=== PATIENT | female | born 1955 | race Caucasian/White ===

== ENCOUNTER 2021-06-21 15:42 | Outpatient (REF) | payer OTHER, SELFPAY ==
[2021-06-21 15:55] LABS: Hematocrit 27.6 % (37.0-47.0); Hemoglobin 8.4 g/dl (12.0-16.0); Mean Corpuscular HGB Conc 30.4 g/dl (31.0-35.0); Mean Corpuscular Hemoglobin 26.2 pg (27.0-33.0); Mean Platelet Volume 10.1 fL (9.4-12.3); NRBC Pct Auto 0.7 /100WBC (0.0-0.2); Platelet Count 159 X10*3/uL (160-400); Red Blood Count 3.21 X10*6/uL (4.20-5.50); Red Cell Distribution Width 20.2 % (11.0-16.0); White Blood Count 7.4 X10*3/uL (4.8-10.8)
[2021-06-21 16:24] LABS: Alanine Aminotransferase 8 U/L (0-31); Albumin Level 2.9 g/dL (3.5-5.0); Alkaline Phosphatase 227 U/L (39-117); Anion Gap 13 (12-20); Aspartate Amino Transferase 9 U/L (5-31); Band Neutrophils Percent 18 % (3-5); Basophils Abs Manual 0.1 X10*3/uL (0.0-0.2); Basophils Percent Manual 1 % (0-2); Bilirubin Total 0.3 mg/dL (0.0-1.0); Blood Urea Nitrogen 25 mg/dL (9-16); Calcium 8.4 mg/dL (8.4-10.2); Carbon Dioxide 7 mmol/L (22-29); Chloride 116 mmol/L (96-108); Eosinophils Absolute Manual 0.1 X10*3/uL (0.0-0.4); Eosinophils Percent Manual 1 % (0-4); Estimated Glomerular Filt Rate 29; Glucose Random 173 mg/dL (60-115); Lymphocytes Absolute Manual 1.8 X10*3/uL (1.2-4.9); Lymphocytes Percent Manual 24 % (20-40); Macrocytosis 1+ (5-14) /OIF; Magnesium 1.8 mg/dL (1.6-2.6); Metamyelocytes Absolute 0.1 X10*3/uL; Metamyelocytes Percent 2 %; Microcytosis 1+ (5-14) /OIF; Monocytes Absolute Manual 1.6 X10*3/uL (0.1-1.2); Monocytes Percent Manual 22 % (2-11); Myelocytes Absolute 0.1 X10*/uL; Myelocytes Percent 2 %; Neutrophils Absolute Manual 3.6 X10*3/uL (2.0-8.3); Neutrophils Percent Manual 30 % (45-73); Platelet Estimate SLIGHTLY DECREASED (NORMAL); Platelet Morphology Comment NOTED; Potassium 3.5 mmol/L (3.3-5.1); RBC Morphology NOTED; Sodium 132 mmol/L (135-145); Total Protein 5.7 g/dL (6.5-8.0)
[2021-06-21 16:25] LABS: Acanthocytes 2+ (3-5) /OIF; Burr Cells 2+ (3-5) /OIF; Large Platelet PRESENT; Ovalocytes 1+ (5-14) /OIF; Polychromasia 2+ (3-5) /OIF
== END 2021-06-21 15:43 | disposition home or self-care (01) ==
LOC: HO.LNP 15:42
PROVIDERS: Visit Provider Family Medicine
DX: E87.6 Hypokalemia (principal)
CPT/HCPCS: 80053; 83735; 85007; 85027

== ENCOUNTER 2021-06-21 18:06 | Inpatient (IN) | payer OTHER, SELFPAY ==
[2021-06-21] VITALS (9 sets, daily range): BP systolic 93–156; BP diastolic 61–97; PULSE 84–93; RESP 12–18; TEMP 36.5–37; O2SAT 98–100; BMI 26.2
--- NOTE | ~2021-06-21 | XR_ITS ---
EXAMINATION: XR CHEST CLINICAL INFORMATION: Tachycardia and tachypnea COMPARISON: None TECHNIQUE: Frontal view of the chest was obtained. FINDINGS: Heart size normal. There is an area of patchy infiltration in the right suprahilar region. Some left basilar atelectasis is present. A right chest wall port is seen with its tip at the SVC/RA junction. There is no evidence of CHF. No definite effusions are seen. Degenerative changes present in the spine and left shoulder. XR/XR chest 1V IMPRESSION: Right upper lobe patchy infiltrate consistent with pneumonia.
--- NOTE | ~2021-06-21 | CT_ITS ---
EXAMINATION: CT ABDOMEN AND PELVIS WITHOUT CONTRAST CLINICAL INFORMATION: Polymicrobial catheter anemia, pancreatic CA. COMPARISON: None TECHNIQUE: Multidetector volumetric imaging was performed from the superior aspect of the liver through the pubic symphysis. Sagittal and coronal reformatted images were obtained on the technologist's workstation. This CT examination was performed using dose optimization techniques as appropriate, variously including the following: *Automated exposure control *Adjustment of mA and/or kV according to patient size (this includes techniques or standardized protocols for targeted exams where dose is matched to indication/reason for exam; i.e. extremities or head) *Use of iterative reconstruction technique DLP: 468 mGy-cm FINDINGS: LUNG BASES: There is a patchy opacity seen left lung base suggestive of infiltrate. The heart size is normal. LIVER, GALLBLADDER, AND BILIARY TREE: The liver is normal in size, shape, and attenuation. There is a gas-filled lesion in the right hepatic lobe segment 6 measuring 3.3 x 2.8 x 2.8 cm. No additional lesions visualized on this noncontrast exam. There is a dilated common bile duct measuring 2.0 cm. The gallbladder is distended without any radiopaque calculi or wall thickening. PANCREAS: There is prominent pancreatic head with punctate calcification and irregular contour. The pancreatic body and the tail is not visualized likely surgically removed. The peripancreatic fat borders are hazy. There are small peripancreatic small lymph nodes especially along the posterior head of pancreas. The largest lymph node measures 1.7 x 1.0 cm and coronal image 53/4. SPLEEN: Unremarkable. ADRENAL GLANDS: The left adrenal gland is slightly plump measuring 1 cm. The right adrenal gland is normal. KIDNEYS AND URETERS: The kidneys are normal in size, shape, and attenuation. No hydronephrosis, hydroureter, or calculi seen. There is mild peripancreatic fat stranding. BLADDER: Unremarkable. GASTROINTESTINAL TRACT: There is scattered stool and gas seen throughout the colon without distention. The small bowel loops are normal caliber. Appendix is normal caliber. ABDOMINAL WALL: No significant hernia is appreciated. LYMPH NODES: There are small retroperitoneal lymph nodes. VASCULAR: Unremarkable. PELVIC VISCERA: The uterus is anteverted and appears unremarkable. There is no adnexal mass or free fluid seen. OSSEOUS STRUCTURES: There is vacuum disc phenomena and loss of disc height L1-L2 disc level. This mild ventral spondylosis lumbar spine. No lytic or sclerotic process seen. CT/CT abdomen pelvis wo con IMPRESSION: Slightly prominent pancreatic head with calcification and peripancreatic fat stranding and small peripancreatic lymph nodes. Lymph nodes also visualized in the retroperitoneum measuring 1.4 cm in maximum dimension. The CBD is abnormality dilated extending to the pancreatic head. Lack of IV contrast to 6 evaluation. The gallbladder is distended but no radiopaque calculi seen. There is gas-filled right hepatic lobe lesion question abscess or necrotic lesion. There are no previous exam available for comparison. This patient have elevated white count ?.
--- NOTE | 2021-06-21 18:08 | ECG_ITS ---
Test Reason : N/V Blood Pressure : / mmHG Vent. Rate : 088 BPM Atrial Rate : 088 BPM P-R Int : 144 ms QRS Dur : 080 ms QT Int : 360 ms P-R-T Axes : 068 -12 029 degrees QTc Int : 435 ms Sinus rhythm with occasional Premature ventricular complexes Nonspecific T wave abnormality Abnormal ECG No previous ECGs available Referred By: Frannie Banks Electronically Signed By:AXEL ROMERO MD
--- NOTE | 2021-06-21 18:19 | ED_ITS ---
HPI - General Adult General Chief complaint: Nausea/Vomiting/Diarrhea Stated complaint: ABN LAB PER SNF Time Seen by Provider: 06/21/21 18:07 Source: patient and EMS Mode of arrival: EMS Limitations: no limitations History of Present Illness HPI narrative: 66 yo female with history of pancreatic cancer, pancytopenia, protein-calorie malnutrition, DM2, chronic pain on chronic opiates who presents to the ED from [facility] with abnormal blood work. She reportedly got to [facility] 2 days ago, unclear from where. She is a poor historian. Her bicarb today was found to be seven. She states she is at rehab because she is weak and not eating. She reports ongoing watery diarrhea for several weeks. she denies all other physical complaints. She reports a very poor appetite and does not remember last time she ate. She has had 3 episodes of watery diarrhea today. She reports she is on blood thinners she does know why. MD complaint: Abnormal blood work, bicarbonate of 7 Onset (ago): unknown Severity: moderate Relieving factors: none Exacerbating factors: none Associated symptoms: weakness and other ( diarrhea) Treatments prior to arrival: none Related Data Allergies Allergy/AdvReac Type Severity Reaction Status Date / Time Unable to Assess Allergy Unverified 06/21/21 18:06 Review of Systems Review of Systems: Constitutional: No Fever, No Chills ENT/Mouth: No sore throat, No Rhinorrhea, No Swallowing Difficulty Cardiovascular: No Chest Pain, No SOB, No Orthopnea, No Edema Respiratory: No Cough, No Sputum, No Wheezing, No dyspnea Gastrointestinal: No Nausea, No Vomiting, + Diarrhea, No abdominal Pain, No Hematochezia, No Melena Genitourinary: No Dysuria, No Urinary Frequency, No Hematuria Musculoskeletal: No joint pain, No Myalgias Skin: No Skin Lesions, No rash Neuro: + Weakness, No Numbness, No Dizziness, No Headache Psych: No Anxiety/Panic, No Depression Heme/Lymph: No Bruising, No Lymphadenopathy Endocrine: No Polyuria, No Polydipsia PMFSH Past Medical History Medical History (Updated 06/21/21 @ 20:28 by GREG Mendoza) Diabetes HTN (hypertension) Pancreatic cancer metastasized to liver Social History Social History Advance Directives: No Advance Directives Information Provided: No Physical Exam Vital Signs: Vital Signs: Last Vital Signs Temp 98.3 F 06/21/21 19:19 Pulse 90 06/21/21 19:19 Resp 18 06/21/21 19:19 BP 97/76 06/21/21 19:19 Pulse Ox 98 06/21/21 19:19 Body Mass Index 26.2 Appearance: Alert, pale elderly female, appears older than stated age. Oriented X2. No acute distress. Eyes: Pupils equal, round and reactive to light. ENT: Pharynx normal. Neck: Normal inspection. Neck supple. CVS: Normal heart rate and rhythm. Pulses normal. Respiratory: No respiratory distress. Breath sounds normal. Abdomen: Softly distended and nontender. +BS x4 Skin: Skin warm and dry. Normal skin color. Normal skin turgor. No rashes. Extremities: No lower extremity edema. Neuro: Oriented X 2. No motor deficit. No sensory deficit. Course Course Course Narrative: 66-year-old female presenting with a bicarbonate of 7. Her face sheet from a [facility] reports a history of pancreatic cancer, protein calorie malnutrition, acidosis. She cannot hear she was recently hospitalized but appears it may be [facility]. Will attempt to get records. Repeat lab workup ordered now along with IVF. On arrival to the ER patient immediately requested to use the bathroom. She had a large amount of watery very dark brown stool. She states it has been going on for weeks. Reevaluation(s) Reevaluation #1: Received records from [facility] Zane her she was previously admitted and discharged on 2 days ago on June 19. She was admitted 06/18 - 06/20 for chronic diarrhea after receiving chemotherapy 06/09 for her metastatic pancreatic cancer. she also had several actually abnormalities and pancytopenia with an H&H of 8.7/27.9. She had an anion gap metabolic acidosis w ith significant electrolyte abnormalities that were treated with IV fluids and electrolyte repletion. She was discharged with a bicarbonate of 11. creatinine was normal at 1.0. Reevaluation #2: After her 2nd episode of diarrhea here she had drop in her BP to 90's/70's, mentating well but felt weak. Still working on getting IV access and labs. Nurse to access right chest wall port to start IVF. Patient will require admission. Reevaluation #3: Ph 7.09. Ordered IV bicarb push and dose of oral bicarbonate. Will also start Imodium given her diarrhea is not infectious. Case d/w Dr. Fernandez - awaiting repeat labs. IV bicarb gtt to be started. Will plan to repeat VBG to assess response prior to admission to hospitalist. Pt awake and alert. Hemodynamically stable. Does not require ICU level of care at this time. Signed out to night provider who will f/u repeat VBG and plan to admit. Medical Decision Making Lab Data Result diagrams: 06/21/21 20:00 06/21/21 20:00 Labs: Lab Results 06/21/21 06/21/21 06/21/21 Range/Units 18:45 18:45 18:45 WBC (4.8-10.8) X10*3/uL RBC (4.20-5.50) X10*6/uL Hgb (12.0-16.0) g/dl Hct (37.0-47.0) % MCV (80.0-98.0) fL MCH (27.0-33.0) pg MCHC (31.0-35.0) g/dl RDW (11.0-16.0) % Plt Count (160-400) X10*3/uL MPV (9.4-12.3) fL Immature Gran % (Auto) Neut % (Auto) Lymph % (Auto) [place] % (Auto) Eos % (Auto) Baso % (Auto) Lymph # (Auto) [place] # (Auto) Eos # (Auto) Baso # (Auto) Abs Immat Gran (auto) Absolute Neuts (auto) Absolute Nucleated RBC (0.0-0.012) X10*3/uL Nucleated RBC % (auto) (0.0-0.2) /100WBC Neutrophils % (Manual) (45-73) % Band Neutrophils % (3-5) % Lymphocytes % (Manual) (20-40) % Atypical Lymphs % (Man) (0-6) % Monocytes % (Manual) (2-11) % Eosinophils % (Manual) (0-4) % Metamyelocytes % % Myelocytes % % Abs Neuts (Manual) (2.0-8.3) X10*3/uL Lymphocytes # (Manual) (1.2-4.9) X10*3/uL Atyp Lymphs # (Manual) x10*3/uL Monocytes # (Manual) (0.1-1.2) X10*3/uL Eosinophils # (Manual) (0.0-0.4) X10*3/uL Metamyelocytes # X10*3/uL Myelocytes # X10*/uL Nucleated RBCs (0-0) /100WBC Smudge Cells Toxic Granulation Platelet Estimate (NORMAL) Large Platelets Plt Morphology Comment RBC Morphology Polychromasia /OIF Macrocytosis /OIF Ovalocytes /OIF [place] Cells /OIF Acanthocytes (Spur) /OIF Schistocytes /OIF VBG pH (7.32-7.43) VBG pCO2 mmHg VBG pO2 mmHg VBG HCO3 (22-26) mmol/L VBG O2 Saturation % VBG Base Excess mmol/L Sodium (135-145) mmol/L Potassium (3.3-5.1) mmol/L Chloride (96-108) mmol/L Carbon Dioxide (22-29) mmol/L Anion Gap (12-20) BUN (9-16) mg/dL Creatinine (0.5-1.4) mg/dL Estim Creat Clear Calc Estimated GFR Random Glucose (60-115) mg/dL Lactic Acid (0.5-2.0) mmol/L Calcium (8.4-10.2) mg/dL Magnesium (1.6-2.6) mg/dL Total Bilirubin (0.0-1.0) mg/dL Direct Bilirubin (0.0-0.5) mg/dL AST (5-31) U/L ALT (0-31) U/L Alkaline Phosphatase (39-117) U/L Total Protein (6.5-8.0) g/dL Albumin (3.5-5.0) g/dL Lipase (8-78) U/L Stool Occult Blood POSITIVE (NEGATIVE) Stool Leukocytes, Qual NEGATIVE (NEGATIVE) C. difficile Tox B Gene (Negative) COVID-19 (JOE) Negative (Negative) COVID-19 Clin Com See Note 06/21/21 06/21/21 06/21/21 Range/Units 18:45 20:00 20:00 WBC 10.4 (4.8-10.8) X10*3/uL RBC 3.26 L (4.20-5.50) X10*6/uL Hgb 8.6 L (12.0-16.0) g/dl Hct 27.6 L (37.0-47.0) % MCV 84.7 (80.0-98.0) fL MCH 26.4 L (27.0-33.0) pg MCHC 31.2 (31.0-35.0) g/dl RDW 20.0 H (11.0-16.0) % Plt Count 203 D (160-400) X10*3/uL MPV 10.3 (9.4-12.3) fL Immature Gran % (Auto) Cancelled Neut % (Auto) Cancelled Lymph % (Auto) Cancelled [place] % (Auto) Cancelled Eos % (Auto) Cancelled Baso % (Auto) Cancelled Lymph # (Auto) Cancelled [place] # (Auto) Cancelled Eos # (Auto) Cancelled Baso # (Auto) Cancelled Abs Immat Gran (auto) Cancelled Absolute Neuts (auto) Cancelled Absolute Nucleated RBC 0.100 H (0.0-0.012) X10*3/uL Nucleated RBC % (auto) 1.0 H (0.0-0.2) /100WBC Neutrophils % (Manual) 30 L (45-73) % Band Neutrophils % 24 H (3-5) % Lymphocytes % (Manual) 21 (20-40) % Atypical Lymphs % (Man) 2 (0-6) % Monocytes % (Manual) 19 H (2-11) % Eosinophils % (Manual) 1 (0-4) % Metamyelocytes % 2 % Myelocytes % 1 % Abs Neuts (Manual) 5.6 (2.0-8.3) X10*3/uL Lymphocytes # (Manual) 2.2 (1.2-4.9) X10*3/uL Atyp Lymphs # (Manual) 0.2 x10*3/uL Monocytes # (Manual) 2.0 H (0.1-1.2) X10*3/uL Eosinophils # (Manual) 0.1 (0.0-0.4) X10*3/uL Metamyelocytes # 0.2 X10*3/uL Myelocytes # 0.1 X10*/uL Nucleated RBCs 3 H (0-0) /100WBC Smudge Cells PRESENT Toxic Granulation PRESENT Platelet Estimate NORMAL (NORMAL) Large Platelets PRESENT Plt Morphology Comment NOTED RBC Morphology NOTED Polychromasia 2+ (3-5) /OIF Macrocytosis 1+ (5-14) /OIF Ovalocytes 1+ (5-14) /OIF [place] Cells 1+ (0-2) /OIF Acanthocytes (Spur) 3+ (>5) /OIF Schistocytes 1+ (0-2) /OIF VBG pH (7.32-7.43) VBG pCO2 mmHg VBG pO2 mmHg VBG HCO3 (22-26) mmol/L VBG O2 Saturation % VBG Base Excess mmol/L Sodium 132 L (135-145) mmol/L Potassium 3.4 (3.3-5.1) mmol/L Chloride 116 H (96-108) mmol/L Carbon Dioxide 6 L* (22-29) mmol/L Anion Gap 13 (12-20) BUN 28 H (9-16) mg/dL Creatinine 2.01 H (0.5-1.4) mg/dL Estim Creat Clear Calc 23.4 Estimated GFR 25 Random Glucose 215 H (60-115) mg/dL Lactic Acid (0.5-2.0) mmol/L Calcium 8.3 L (8.4-10.2) mg/dL Magnesium 1.8 (1.6-2.6) mg/dL Total Bilirubin 0.4 (0.0-1.0) mg/dL Direct Bilirubin 0.2 (0.0-0.5) mg/dL AST 8 (5-31) U/L ALT 9 (0-31) U/L Alkaline Phosphatase 241 H (39-117) U/L Total Protein 5.8 L (6.5-8.0) g/dL Albumin 2.9 L (3.5-5.0) g/dL Lipase (8-78) U/L Stool Occult Blood (NEGATIVE) Stool Leukocytes, Qual (NEGATIVE) C. difficile Tox B Gene NEGATIVE (Negative) COVID-19 (JOE) (Negative) COVID-19 Clin Com 06/21/21 06/21/21 06/21/21 Range/Units 20:00 20:00 20:04 WBC (4.8-10.8) X10*3/uL RBC (4.20-5.50) X10*6/uL Hgb (12.0-16.0) g/dl Hct (37.0-47.0) % MCV (80.0-98.0) fL MCH (27.0-33.0) pg MCHC (31.0-35.0) g/dl RDW (11.0-16.0) % Plt Count (160-400) X10*3/uL MPV (9.4-12.3) fL Immature Gran % (Auto) Neut % (Auto) Lymph % (Auto) [place] % (Auto) Eos % (Auto) Baso % (Auto) Lymph # (Auto) [place] # (Auto) Eos # (Auto) Baso # (Auto) Abs Immat Gran (auto) Absolute Neuts (auto) Absolute Nucleated RBC (0.0-0.012) X10*3/uL Nucleated RBC % (auto) (0.0-0.2) /100WBC Neutrophils % (Manual) (45-73) % Band Neutrophils % (3-5) % Lymphocytes % (Manual) (20-40) % Atypical Lymphs % (Man) (0-6) % Monocytes % (Manual) (2-11) % Eosinophils % (Manual) (0-4) % Metamyelocytes % % Myelocytes % % Abs Neuts (Manual) (2.0-8.3) X10*3/uL Lymphocytes # (Manual) (1.2-4.9) X10*3/uL Atyp Lymphs # (Manual) x10*3/uL Monocytes # (Manual) (0.1-1.2) X10*3/uL Eosinophils # (Manual) (0.0-0.4) X10*3/uL Metamyelocytes # X10*3/uL Myelocytes # X10*/uL Nucleated RBCs (0-0) /100WBC Smudge Cells Toxic Granulation Platelet Estimate (NORMAL) Large Platelets Plt Morphology Comment RBC Morphology Polychromasia /OIF Macrocytosis /OIF Ovalocytes /OIF [place] Cells /OIF Acanthocytes (Spur) /OIF Schistocytes /OIF VBG pH 7.09 L* (7.32-7.43) VBG pCO2 12 mmHg VBG pO2 65 mmHg VBG HCO3 4 L (22-26) mmol/L VBG O2 Saturation 86.0 % VBG Base Excess -23.3 mmol/L Sodium (135-145) mmol/L Potassium (3.3-5.1) mmol/L Chloride (96-108) mmol/L Carbon Dioxide (22-29) mmol/L Anion Gap (12-20) BUN (9-16) mg/dL Creatinine (0.5-1.4) mg/dL Estim Creat Clear Calc Estimated GFR Random Glucose (60-115) mg/dL Lactic Acid 1.5 (0.5-2.0) mmol/L Calcium (8.4-10.2) mg/dL Magnesium (1.6-2.6) mg/dL Total Bilirubin (0.0-1.0) mg/dL Direct Bilirubin (0.0-0.5) mg/dL AST (5-31) U/L ALT (0-31) U/L Alkaline Phosphatase (39-117) U/L Total Protein (6.5-8.0) g/dL Albumin (3.5-5.0) g/dL Lipase 20 (8-78) U/L Stool Occult Blood (NEGATIVE) Stool Leukocytes, Qual (NEGATIVE) C. difficile Tox B Gene (Negative) COVID-19 (JOE) (Negative) COVID-19 Clin Com ECG Data Attestation: I personally reviewed and interpreted this ECG as follows: Prior ECG tracings: not available for review Interpretation: Normal sinus rhythm with occasional PVCs, heart rate 88 beats per minute, normal GA interval, no ST segment elevations or depressions Critical Care Time Critical Care Time Critical Care Time: Yes Total Critical Care Time: 42 Attestation: I have personally provided critical care time exclusive of time spent on separately billable procedures. Time includes review of lab data, radiology results, discussion with consultants, and monitoring for potential decompensation. Intervention performed as documented. Discharge Plan Discharge Clinical Impression: Metabolic acidosis, Melena Diarrhea Qualifiers: Diarrhea type: unspecified type Qualified Code(s): R19.7 - Diarrhea, unspecified Patient Disposition: Admitted As Inpatient
[2021-06-21 18:59] LABS: OBS Int Ctl Valid YES; OBS1 POSITIVE (NEGATIVE)
[2021-06-21] MEDS: 0.9 % Sodium Chloride 1,000 ML 999 ML IVCONT (19:23)
[2021-06-21 19:25] LABS: Leukocytes Stool Qualitative NEGATIVE (NEGATIVE)
[2021-06-21 19:49] LABS: CDiff Gene PCR NEGATIVE (Negative)
[2021-06-21 19:58] LABS: COVID-19 Test Negative (Negative); IDNOW Serial# 08D9AD1C
[2021-06-21 20:08] LABS: Hematocrit 27.6 % (37.0-47.0); Hemoglobin 8.6 g/dl (12.0-16.0); Mean Corpuscular HGB Conc 31.2 g/dl (31.0-35.0); Mean Corpuscular Hemoglobin 26.4 pg (27.0-33.0); Mean Corpuscular Volume 84.7 fL (80.0-98.0); Mean Platelet Volume 10.3 fL (9.4-12.3); Platelet Count 203 X10*3/uL (160-400); Red Blood Count 3.26 X10*6/uL (4.20-5.50); White Blood Count 10.4 X10*3/uL (4.8-10.8)
[2021-06-21 20:12] LABS: VBG Base Excess -23.3 mmol/L; VBG HCO3 4 mmol/L (22-26); VBG pCO2 12 mmHg; VBG pH 7.09 (7.32-7.43); VBG pO2 65 mmHg
[2021-06-21 20:21] LABS: Lactic Acid 1.5 mmol/L (0.5-2.0)
[2021-06-21 20:26] LABS: Lipase 20 U/L (8-78)
[2021-06-21] MEDS: Sodium Bicarbonate 650 MG TABLET PO (20:33)
[2021-06-21 20:35] LABS: Atypical Lymph Absolute Manual 0.2 x10*3/uL; Atypical Lymphs Percent Manual 2 % (0-6); Band Neutrophils Percent 24 % (3-5); Eosinophils Absolute Manual 0.1 X10*3/uL (0.0-0.4); Eosinophils Percent Manual 1 % (0-4); Lymphocytes Absolute Manual 2.2 X10*3/uL (1.2-4.9); Lymphocytes Percent Manual 21 % (20-40); Metamyelocytes Absolute 0.2 X10*3/uL; Metamyelocytes Percent 2 %; Monocytes Percent Manual 19 % (2-11); Myelocytes Absolute 0.1 X10*/uL; Myelocytes Percent 1 %; Neutrophils Absolute Manual 5.6 X10*3/uL (2.0-8.3); Neutrophils Percent Manual 30 % (45-73); Nucleated Red Blood Cells 3 /100WBC (0-0)
[2021-06-21 20:36] LABS: Acanthocytes 3+ (>5) /OIF; Burr Cells 1+ (0-2) /OIF; Large Platelet PRESENT; Macrocytosis 1+ (5-14) /OIF; Ovalocytes 1+ (5-14) /OIF; Platelet Estimate NORMAL (NORMAL); Platelet Morphology Comment NOTED; Polychromasia 2+ (3-5) /OIF; RBC Morphology NOTED; Schistocytes 1+ (0-2) /OIF; Smudge Cells PRESENT; Toxic Granulation PRESENT
[2021-06-21 20:38] LABS: Venous Blood Gas Refer to POC result
[2021-06-21] MEDS: Sodium Bicarbonate 8.4% 50 MEQ/50 ML SYRINGE IVPUSH ×2 (20:40→21:29)
[2021-06-21 20:46] LABS: Alanine Aminotransferase 9 U/L (0-31); Albumin Level 2.9 g/dL (3.5-5.0); Alkaline Phosphatase 241 U/L (39-117); Anion Gap 13 (12-20); Aspartate Amino Transferase 8 U/L (5-31); Bilirubin Direct 0.2 mg/dL (0.0-0.5); Bilirubin Total 0.4 mg/dL (0.0-1.0); Blood Urea Nitrogen 28 mg/dL (9-16); Calcium 8.3 mg/dL (8.4-10.2); Carbon Dioxide 6 mmol/L (22-29); Chloride 116 mmol/L (96-108); Creatinine Clr Calc Pharmacy 23.4; Estimated Glomerular Filt Rate 25; Glucose Random 215 mg/dL (60-115); Magnesium 1.8 mg/dL (1.6-2.6); Potassium 3.4 mmol/L (3.3-5.1); Sodium 132 mmol/L (135-145); Total Protein 5.8 g/dL (6.5-8.0)
[2021-06-21] MEDS: Loperamide HCl 2 MG CAPSULE 4 MG PO (20:57)
[2021-06-21] MEDS: Sodium Bicarbonate 8.4% 150 MEQ in Dextrose 5 % 850 ML 100 MEQ IV (21:24)
--- NOTE | 2021-06-21 21:46 | PC.NURSE ---
Hospitalist () saw patient at the bedside, planning for admission. Pt is trembling, d/t feeling cold . Rectal temperature 97.7F. Hospitalist & ED MD () aware. Respiratory therapist currently at bedside obtaining ABGs. Awaiting results. Sodium Bicarbonate drip infusing as ordered. Delay in initiating medication due to delay in receiving medication from pharmacy. Providers aware of delay. 20g port access (right side of chest).
[2021-06-21 21:58] LABS: ABG Base Excess -15.7 mmol/L; ABG HCO3 7 mmol/L (22-26); ABG pCO2 13 mmHg (32-45); ABG pCO2 TC 12 mmHg (32-45); ABG pH 7.35 (7.35-7.45); ABG pH TC 7.35 (7.35-7.45); ABG pO2 117 mmHg (83-108); ABG pO2 TC 114 (83-108)
--- NOTE | 2021-06-21 22:52 | P.HPHOSP_ITS ---
History of Present Illness Date of Service: 06/21/21 Chief Complaint: abnormal labs 66-year-old female with past medical history of diabetes, hypertension, pancytopenia, protein calorie malnutrition, AFib, diabetes pancreatic cancer and chronic diarrheapresents to the hospital with abnormal labs. Patient was re cently discharged from [facility] and sent to correction, she had labs done at correction today and found to have low bicarb and sent to the ED. Patient is alert and oriented x3, she has no nausea or vomiting, no chest pain, no abdominal pain no urinary symptoms, she has diarrhea about 3-10 episodes a day and reports that lately she has had worsening diarrhea. Received records from [facility] [place] her she was previously admitted and discharged on? 2 days ago on June 19.? She was admitted 06/18 - 06/20 for chronic diarrhea after receiving chemotherapy 06/09 for her metastatic? pancrea tic cancer.? she also had several actually abnormalities and pancytopenia with an H&H of 8.7/27.9.? She had an anion gap metabolic acidosis with significant electrolyte abnormalities that were treated with IV fluids and electrolyte repletion.? She was discharged with a bicarbonate of 11.? creatinine was normal at 1.0. While in the ED patient had a large amount of watery very dark brown stool, On arrival to the ED patient hemodynamically stable with no significant abnormal vitals Labs are significant for WBC count of 7.1, hemoglobin of 8.6, dropped to 7.1, initial pH of 7.09 that normalized to 7.35 after an amp of bicarb, bicarb has improved from 6 to 13, BUN of 28, creatinine of 2.0 with no previous similar episode stool occult positive, COVID-19 negative Patient started on bicarb drip, received IV bicarb and will be admitted for further management Review of Systems Review of Systems: Yes all other systems are reviewed and are negative [facility] Medical History (Updated 06/22/21 @ 07:27 by Marcus Fernandez MD) Afib Diabetes HTN (hypertension) Pancreatic cancer metastasized to liver Pancytopenia Protein calorie malnutrition Pertinent family history: No family history of coronary disease Surgical History (Updated 06/22/21 @ 07:27 by Marcus Fernandez MD) No pertinent past surgical history Social History Advance Directives: No Advance Directives Information Provided: No Meds Allergies Allergy/AdvReac Type Severity Reaction Status Date / Time No Known Allergies Allergy Verified 06/21/21 23:13 Active Medications: Current Medications Sodium Bicarbonate 150 meq/ (Dextrose) 1,000 mls @ 100 mls/hr IV .Q10H JACOBO Last Admin: 06/21/21 21:24 Dose: 100 mls/hr Documented by: Home Medications Medication Instructions Recorded Confirmed Last Taken Type albuterol sulfate 90 mcg/actuation 1 - 2 puff INHALATION Q4-6H 06/21/21 06/21/21 Unknown History aerosol inhaler apixaban 5 mg tablet (Eliquis) 1 tab PO BID 06/21/21 06/21/21 Unknown History aspirin 81 mg tablet,delayed 1 tab PO DAILY 06/21/21 06/21/21 Unknown History release atorvastatin 10 mg tablet 10 mg PO Q6H 06/21/21 06/21/21 Unknown History cholecalciferol (vitamin D3) 25 1 cap PO QAM 06/21/21 06/21/21 Unknown History mcg (1,000 unit) capsule (Vitamin D3) cholestyramine-aspartame 4 gram 1 packet PO BID PRN 06/21/21 06/21/21 Unknown History oral powder for susp in a packet (Cholestyramine Light) cyclosporine 0.05 % eye drops in a 1 drp OPHTHALMIC (EYE) BEDTIME 06/21/21 06/21/21 Unknown History dropperette (Restasis) diphenoxylate-atropine 2.5 1 tab PO Q6H PRN 06/21/21 06/21/21 Unknown History mg-0.025 mg tablet ferrous sulfate 325 mg (65 mg 325 mg PO DAILY 06/21/21 06/21/21 Unknown History iron) tablet (FeroSul) hydromorphone 4 mg tablet 4 mg PO NEEDED PRN 06/21/21 06/21/21 Unknown History lidocaine-prilocaine 2.5 %-2.5 % 1 appl TOPICAL NEEDED PRN 06/21/21 06/21/21 Unknown History topical cream qcwdwj-ebeqowjb-qnypalq 1 cap PO TID 06/21/21 06/21/21 Unknown History 12,000-38,000-60,000 unit capsule,delayed rel (Creon) qionuo-owljhivv-wymwqsd 1 cap PO TID 06/21/21 06/21/21 Unknown History 24,000-76,000-120,000 unit capsule,delayed rel (Creon) qpnqsm-mggzwwgl-yhnemlg 1 cap PO TID 06/21/21 06/21/21 Unknown History 36,000-114,000-180,000 unit capsule,delay rel (Creon) losartan 100 mg tablet 1 tab PO DAILY 06/21/21 06/21/21 Unknown History magnesium L-lactate 84 mg 1 tab PO BID 06/21/21 06/21/21 Unknown History tablet,extended release metoprolol succinate 50 mg 1 tab PO BID 06/21/21 06/21/21 Unknown History tablet,extended release 24 hr mirtazapine 15 mg tablet 0.5 tab PO DAILY 06/21/21 06/21/21 Unknown History morphine 15 mg tablet,extended 1 tab PO TID 06/21/21 06/21/21 Unknown History release omeprazole 20 mg capsule,delayed 1 cap PO DAILY 06/21/21 06/21/21 Unknown History release ondansetron HCl 8 mg tablet 1 tab PO TID 06/21/21 06/21/21 Unknown History potassium chloride 10 mEq 1 tab PO BID 06/21/21 06/21/21 Unknown History capsule,extended release thiamine HCl (vitamin B1) 100 mg 1 tab PO DAILY 06/21/21 06/21/21 Unknown History tablet (Vitamin B-1) Physical Exam Vital Signs and Narrative: Vital Signs: Last Vital Signs Temp 97.7 F 06/21/21 22:36 Pulse 84 06/21/21 22:36 Resp 16 06/21/21 22:36 BP 127/78 06/21/21 22:36 Pulse Ox 100 06/21/21 22:36 Body Mass Index 26.2 Const: General: cooperative and no acute distress Orientation/consciousness: patient oriented x3 Eyes: General: appearance normal, both eyes and all related structures Pupils: Equal, round and reactive pupils present Chest: Other: A port in plaace on the right upper chest Resp: Effort & Inspection: normal respiratory effort Auscultation: clear to auscultation bilaterally Cardio: Rate: regular rate Rhythm: regular rhythm GI: Other: Abdomen is soft, nontender, no rebound or guarding Palpation (GI): Soft to palpation Auscultation: normal bowel sounds Skin: General skin exam: no rashes or lesions noted Neuro: General: patient oriented x3 Cranial nerves: Yes Equal, round and reactive pupils present Cognition (Neuro): normal cognition Extrem: General: Yes normal to inspection and Yes no pedal edema Results Labs CBC and Chem 7: 06/22/21 00:05 06/21/21 20:00 Labs: Laboratory Results - last 24 hr 06/21/21 06/21/21 06/21/21 18:45 18:45 18:45 MCV MCH MCHC RDW Plt Count MPV Immature Gran % (Auto) Neut % (Auto) Lymph % (Auto) [place] % (Auto) Eos % (Auto) Baso % (Auto) Lymph # (Auto) [place] # (Auto) Eos # (Auto) Baso # (Auto) Abs Immat Gran (auto) Absolute Neuts (auto) Absolute Nucleated RBC Nucleated RBC % (auto) Neutrophils % (Manual) Band Neutrophils % Lymphocytes % (Manual) Atypical Lymphs % (Man) Monocytes % (Manual) Eosinophils % (Manual) Metamyelocytes % Myelocytes % Abs Neuts (Manual) Lymphocytes # (Manual) Atyp Lymphs # (Manual) Monocytes # (Manual) Eosinophils # (Manual) Metamyelocytes # Myelocytes # Nucleated RBCs Smudge Cells Toxic Granulation Platelet Estimate Large Platelets Plt Morphology Comment RBC Morphology Polychromasia Macrocytosis Ovalocytes [place] Cells Acanthocytes (Spur) Schistocytes O2 Saturation ABG pH at Pt Temp ABG pH (Temp Correct) ABG pCO2 at Pt Temp ABG pCO2 (Temp Corrct ABG pO2 at Pt Temp ABG pO2 (Temp Correct ABG HCO3 ABG Base Excess (Actual) VBG pH VBG pCO2 VBG pO2 VBG HCO3 VBG O2 Saturation VBG Base Excess Anion Gap Estim Creat Clear Calc Estimated GFR Random Glucose Lactic Acid Calcium Magnesium Total Bilirubin Direct Bilirubin AST ALT Alkaline Phosphatase Total Protein Albumin Lipase Stool Occult Blood POSITIVE Stool Leukocytes, Qual NEGATIVE C. difficile Tox B Gene COVID-19 (JOE) Negative COVID-19 Clin Com See Note 06/21/21 06/21/21 06/21/21 18:45 20:00 20:00 MCV 84.7 MCH 26.4 L MCHC 31.2 RDW 20.0 H Plt Count 203 D MPV 10.3 Immature Gran % (Auto) Cancelled Neut % (Auto) Cancelled Lymph % (Auto) Cancelled [place] % (Auto) Cancelled Eos % (Auto) Cancelled Baso % (Auto) Cancelled Lymph # (Auto) Cancelled [place] # (Auto) Cancelled Eos # (Auto) Cancelled Baso # (Auto) Cancelled Abs Immat Gran (auto) Cancelled Absolute Neuts (auto) Cancelled Absolute Nucleated RBC 0.100 H Nucleated RBC % (auto) 1.0 H Neutrophils % (Manual) 30 L Band Neutrophils % 24 H Lymphocytes % (Manual) 21 Atypical Lymphs % (Man) 2 Monocytes % (Manual) 19 H Eosinophils % (Manual) 1 Metamyelocytes % 2 Myelocytes % 1 Abs Neuts (Manual) 5.6 Lymphocytes # (Manual) 2.2 Atyp Lymphs # (Manual) 0.2 Monocytes # (Manual) 2.0 H Eosinophils # (Manual) 0.1 Metamyelocytes # 0.2 Myelocytes # 0.1 Nucleated RBCs 3 H Smudge Cells PRESENT Toxic Granulation PRESENT Platelet Estimate NORMAL Large Platelets PRESENT Plt Morphology Comment NOTED RBC Morphology NOTED Polychromasia 2+ (3-5) Macrocytosis 1+ (5-14) Ovalocytes 1+ (5-14) [place] Cells 1+ (0-2) Acanthocytes (Spur) 3+ (>5) Schistocytes 1+ (0-2) O2 Saturation ABG pH at Pt Temp ABG pH (Temp Correct) ABG pCO2 at Pt Temp ABG pCO2 (Temp Corrct ABG pO2 at Pt Temp ABG pO2 (Temp Correct ABG HCO3 ABG Base Excess (Actual) VBG pH VBG pCO2 VBG pO2 VBG HCO3 VBG O2 Saturation VBG Base Excess Anion Gap 13 Estim Creat Clear Calc 23.4 Estimated GFR 25 Random Glucose 215 H Lactic Acid Calcium 8.3 L Magnesium 1.8 Total Bilirubin 0.4 Direct Bilirubin 0.2 AST 8 ALT 9 Alkaline Phosphatase 241 H Total Protein 5.8 L Albumin 2.9 L Lipase Stool Occult Blood Stool Leukocytes, Qual C. difficile Tox B Gene NEGATIVE COVID-19 (JOE) COVID-19 Clin Com 06/21/21 06/21/21 06/21/21 20:00 20:00 20:04 MCV MCH MCHC RDW Plt Count MPV Immature Gran % (Auto) Neut % (Auto) Lymph % (Auto) [place] % (Auto) Eos % (Auto) Baso % (Auto) Lymph # (Auto) [place] # (Auto) Eos # (Auto) Baso # (Auto) Abs Immat Gran (auto) Absolute Neuts (auto) Absolute Nucleated RBC Nucleated RBC % (auto) Neutrophils % (Manual) Band Neutrophils % Lymphocytes % (Manual) Atypical Lymphs % (Man) Monocytes % (Manual) Eosinophils % (Manual) Metamyelocytes % Myelocytes % Abs Neuts (Manual) Lymphocytes # (Manual) Atyp Lymphs # (Manual) Monocytes # (Manual) Eosinophils # (Manual) Metamyelocytes # Myelocytes # Nucleated RBCs Smudge Cells Toxic Granulation Platelet Estimate Large Platelets Plt Morphology Comment RBC Morphology Polychromasia Macrocytosis Ovalocytes [place] Cells Acanthocytes (Spur) Schistocytes O2 Saturation ABG pH at Pt Temp ABG pH (Temp Correct) ABG pCO2 at Pt Temp ABG pCO2 (Temp Corrct ABG pO2 at Pt Temp ABG pO2 (Temp Correct ABG HCO3 ABG Base Excess (Actual) VBG pH 7.09 L* VBG pCO2 12 VBG pO2 65 VBG HCO3 4 L VBG O2 Saturation 86.0 VBG Base Excess -23.3 Anion Gap Estim Creat Clear Calc Estimated GFR Random Glucose Lactic Acid 1.5 Calcium Magnesium Total Bilirubin Direct Bilirubin AST ALT Alkaline Phosphatase Total Protein Albumin Lipase 20 Stool Occult Blood Stool Leukocytes, Qual C. difficile Tox B Gene COVID-19 (JOE) COVID-19 Clin Com 06/21/21 21:52 MCV MCH MCHC RDW Plt Count MPV Immature Gran % (Auto) Neut % (Auto) Lymph % (Auto) [place] % (Auto) Eos % (Auto) Baso % (Auto) Lymph # (Auto) [place] # (Auto) Eos # (Auto) Baso # (Auto) Abs Immat Gran (auto) Absolute Neuts (auto) Absolute Nucleated RBC Nucleated RBC % (auto) Neutrophils % (Manual) Band Neutrophils % Lymphocytes % (Manual) Atypical Lymphs % (Man) Monocytes % (Manual) Eosinophils % (Manual) Metamyelocytes % Myelocytes % Abs Neuts (Manual) Lymphocytes # (Manual) Atyp Lymphs # (Manual) Monocytes # (Manual) Eosinophils # (Manual) Metamyelocytes # Myelocytes # Nucleated RBCs Smudge Cells Toxic Granulation Platelet Estimate Large Platelets Plt Morphology Comment RBC Morphology Polychromasia Macrocytosis Ovalocytes [place] Cells Acanthocytes (Spur) Schistocytes O2 Saturation 98.0 ABG pH at Pt Temp 7.35 ABG pH (Temp Correct) 7.35 ABG pCO2 at Pt Temp 13 L* ABG pCO2 (Temp Corrct 12 L* ABG pO2 at Pt Temp 117 H ABG pO2 (Temp Correct 114 H ABG HCO3 7 L ABG Base Excess (Actual) -15.7 VBG pH VBG pCO2 VBG pO2 VBG HCO3 VBG O2 Saturation VBG Base Excess Anion Gap Estim Creat Clear Calc Estimated GFR Random Glucose Lactic Acid Calcium Magnesium Total Bilirubin Direct Bilirubin AST ALT Alkaline Phosphatase Total Protein Albumin Lipase Stool Occult Blood Stool Leukocytes, Qual C. difficile Tox B Gene COVID-19 (JOE) COVID-19 Clin Com Assessment and Plan (1) Metabolic acidosis: Status: Acute (2) Diarrhea: Qualifiers: Diarrhea type: unspecified type Qualified Code(s): R19.7 - Diarrhea, unspecified Status: Acute (3) Melena: Status: Acute 66-year-old female who presents to the hospital with abnormal labs found to be metabolic acidosis and half melena # metabolic acidosis - hemodynamically stable, alert oriented - it appears to be secondary to chronic diarrhea - patient has no lactic acidosis no evidence of electrolyte abnormality - started on bicarb drip, given amp of bicarb - will follow BMP # melena - patient on Eliquis for AFib - had black stool in the ED - will hold Eliquis - start PPI - follow H&H with threshold transfusion with hemoglobin less than 7 - GI consult # chronic diarrhea - most likely secondary to her pancreatic cancer - C diff negative - monitor DVT prophylaxis: SCDs Quality Stroke Does the patient have a stroke diagnosis?: No VTE Prior VTE?: No VTE Risk Level:: Medical - moderate - high VTE Device Contraindication: N/A - Device Ordered VTE Drug Contraindication: Treatment Not Indicated
[2021-06-21 22:56] LABS: ABG Refer to POC result
[2021-06-21] MEDS: 0.9 % Sodium Chloride Flush 3 ML SYRINGE IVFLUSH (23:52)
[2021-06-21] MEDS: 0.9 % Sodium Chloride 500 ML 999 ML IV (23:52)
[2021-06-22] VITALS (16 sets, daily range): BP systolic 98–143; BP diastolic 54–76; PULSE 77–120; RESP 12–22; TEMP 36.1–36.9; O2SAT 94–100; BMI 28.5
[2021-06-22 00:11] LABS: Hematocrit 22.4 % (37.0-47.0); Hemoglobin 7.1 g/dl (12.0-16.0)
--- NOTE | 2021-06-22 00:20 | PC.NURSE ---
At 23:45 on 06/21/21, BP noted to have decreased. Pt has been pale since arrival to ED, but appears more pale compared to earlier assessment. Pt is responsive/alert/oriented, but appears more sleepy/lethargic. notified, instructed to administer 500ml IV NS 0.9% bolus and to repeat Hematocrit/Hemoglobin levels to compare. Pt has had 2 dark liquid bowel movements since the start of this RN's shift (7pm). With repositioning and some fluid administration, BP improving. All other vitals stable, will continue to monitor.
[2021-06-22 07:04] LABS: Red Cell Distribution Width 19.7 % (11.0-16.0)
[2021-06-22 07:06] LABS: Mean Corpuscular HGB Conc 32.1 g/dl (31.0-35.0); Mean Corpuscular Hemoglobin 25.7 pg (27.0-33.0); Mean Corpuscular Volume 80.1 fL (80.0-98.0); Red Blood Count 2.41 X10*6/uL (4.20-5.50)
[2021-06-22 07:11] LABS: NRBC Pct Auto 1.1 /100WBC (0.0-0.2); WBC ABN SCTR FOR CBC 1
[2021-06-22 07:12] LABS: Hemoglobin 6.2 g/dl (12.0-16.0); PLT ABN DIST 1; White Blood Count 7.1 X10*3/uL (4.8-10.8)
[2021-06-22 07:13] LABS: Hematocrit 19.3 % (37.0-47.0)
[2021-06-22 07:21] LABS: Anion Gap 11 (12-20); Blood Urea Nitrogen 27 mg/dL (9-16); Calcium 7.1 mg/dL (8.4-10.2); Carbon Dioxide 13 mmol/L (22-29); Chloride 115 mmol/L (96-108); Creatinine Clr Calc Pharmacy 32.2; Estimated Glomerular Filt Rate 36; Glucose Random 163 mg/dL (60-115); Potassium 2.3 mmol/L (3.3-5.1); Sodium 137 mmol/L (135-145)
[2021-06-22 07:27] LABS: Atypical Lymph Absolute Manual 0.1 x10*3/uL; Atypical Lymphs Percent Manual 1 % (0-6); Band Neutrophils Percent 20 % (3-5); Lymphocytes Absolute Manual 0.9 X10*3/uL (1.2-4.9); Lymphocytes Percent Manual 12 % (20-40); Metamyelocytes Absolute 0.1 X10*3/uL; Metamyelocytes Percent 1 %; Monocytes Absolute Manual 0.5 X10*3/uL (0.1-1.2); Monocytes Percent Manual 7 % (2-11); Myelocytes Absolute 0.1 X10*/uL; Myelocytes Percent 1 %; Neutrophils Absolute Manual 5.5 X10*3/uL (2.0-8.3); Neutrophils Percent Manual 58 % (45-73); Nucleated Red Blood Cells 2 /100WBC (0-0)
[2021-06-22 07:29] LABS: Ovalocytes 1+ (5-14) /OIF; RBC Morphology NOTED
[2021-06-22 07:30] LABS: Burr Cells 3+ (>5) /OIF; Hypochromasia 2+ (15-30) /OIF; Polychromasia 1+ (0-2) /OIF; Schistocytes 1+ (0-2) /OIF
[2021-06-22 07:31] LABS: Platelet Estimate DECREASED (NORMAL); Platelet Morphology Comment NORMAL
[2021-06-22] MEDS: Sodium Bicarbonate 8.4% 150 MEQ in Dextrose 5 % 850 ML 100 MEQ IV ×2 (07:31→16:16)
[2021-06-22 07:32] LABS: Dohle Bodies PRESENT; Toxic Granulation PRESENT
[2021-06-22] MEDS: Pantoprazole Sodium 40 MG/10 ML VIAL IVPUSH ×2 (07:32→17:05)
[2021-06-22] MEDS: Potassium Chloride/H20 10 MEQ/100 ML PIGGYBACK 100 MEQ IV ×8 (07:37→19:06)
[2021-06-22 07:39] LABS: Mean Platelet Volume 10.8 fL (9.4-12.3); Platelet Count 127 X10*3/uL (160-400)
[2021-06-22] MEDS: Potassium Chloride Packet 20 MEQ PACKET 40 MEQ PO ×3 (07:45→15:57)
[2021-06-22 07:48] LABS: Magnesium 1.5 mg/dL (1.6-2.6)
[2021-06-22] MEDS: Atorvastatin Calcium 40 MG TABLET PO (08:45)
[2021-06-22] MEDS: Thiamine HCL 100 MG TABLET PO (08:45)
[2021-06-22] MEDS: Metoprolol Succinate ER 50 MG TAB.ER.24H PO ×2 (08:45→20:52)
[2021-06-22] MEDS: Cholecalciferol (Vitamin D3) 25 MCG TABLET PO (08:45)
[2021-06-22] MEDS: Ferrous Sulfate 324 MG TABLET.DR PO (08:45)
[2021-06-22] MEDS: 0.9 % Sodium Chloride Flush 3 ML SYRINGE IVFLUSH ×2 (08:53→20:53)
--- NOTE | 2021-06-22 11:35 | PHA.MEDREC ---
Pharmacy Consult ? Medication Reconciliation Pharmacy has completed the medication reconciliation. Meds reviewed from claim history, records from [facility] [place] [facility] [place], as well as speaking with Dr. Person. Pt noted to have an increase in Creon up to 3 capsules of 36,000 po TID. It was noted that the atorvastatin was 40 mg daily NOT 10 mg Q6H.
--- NOTE | 2021-06-22 12:00 | PM.GICN ---
History of Present Illness Data of Consult Service Date: 06/22/21 Requesting physician: Marcus Fernandez Primary Care Provider: Chris Murphy MD HPI Reason for consult: Diarrhea, GI bleed, metastatic pancreatic cancer 66 YF with DM, hypertension, pancytopenia, protein calorie malnutrition, AFib, metstatic pancreatic cancer and chronic diarrhea seen at [facility] on 06/22/21 with abnormal labs.? Hx obtained from the patient and review of medical records from [facility] GI and Oncology clinic. Patient was diagnosed with metastatic pancreatic cancer in November 2020 and is followed at [facility] by Dr. Edwards (GI) and Nicole Ching NP (Oncology). January, She was admitted to [facility] with partial gastric outlet obstruction from duodenal distortion from pancreatic malignancy and a duodenal stent placement was unsuccessful. Patient was transferred to [facility] and underwent an EUS guided gastrojejunostomy with placement of a 15 mm x 15 mm lumen apposing metal stent. Patient is receiving chemotherapy with FOLFIRINOX (5FU + Cisplatinum) with reportedly good evidence of response on CT scan. Pt has had chronic diarrhea for the past several months (prior to diagnosis of pancreatic cancer and treated with loperamide, Lomotil and pancreatic enzymes. Dose of pancreatic enzymes was increased with improvement in diarrhea. Diarrhea was felt to be multifactorial - pancreatic insufficiency, chemotherapy related and possible SIBO Patient was evaluated by colonoscopy which did not show colitis. Patient was recently hospitalized at [facility] from 06/18 to 06/20/21 for chronic diarrhea after receiving chemotherapy 06/09 for her metastatic? pancreatic cancer.? 06/17/[address] scan showed no significant change in the appearance of pancreatic head mass and liver metastasis. No evidence of disease progression. Pneumatosis intestinalis involving the ascending and proximal transverse colon. This was also present on to most recent prior exam, currently is similar to slightly greater in extent and then on 04/16/2021 and 930 at 20:21. Given presence of multiple exam this is likely a benign finding, with bowel ischemia thought less likely. She had pancytopenia with an H&H of 8.7/27.9.? She had an anion gap metabolic acidosis with significant electrolyte abnormalities that were treated with IV fluids and electrolyte repletion and discharged to the long term with a bicarbonate of 11.? creatinine was normal at 1.0. She had labs done at long term and found to have low bicarb and sent to [facility].? Patient denied nausea or vomiting, chest pain, abdominal pain or urinary symptoms. She complains of worsening diarrhea with 3-10 episodes a day. On arrival to the ED patient hemodynamically stable with no significant abnormal vitals. While in the ED patient had a large amount of watery very dark brown stool. Labs are significant for WBC count of 7.1, hemoglobin of 8.6, dropped to 7.1, initial pH of 7.09 that normalized to 7.35 after an amp of bicarb, bicarb has improved from 6 to 13,? BUN of 28, creatinine of 2.0 with no previous similar episode stool occult positive, COVID-19 negative Patient started on bicarb drip, received IV bicarb and was admitted for further management. Pt is a little confused and keeps changing her story. She reports continued abdominal pain and bloating. Appetite has been poor and takes 1 meal a day. She has 2-3 watery BMs a day and her BMs have been dark and tarry recently. Pt has been taking MS Contin at bedtime and Dilaudid 2 tablets - 1-2 times a day for pain control. Pt is single, has no children and lives along. 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 Patient is planning to moved to [place] in July 2021 to live with friends and continue chemotherapy there. She denies smoking or EtOH abuse. Family history is positive for colon cancer in her mom and maternal grand mother, dad had lung cancer. Review of Systems Constitutional: Constitutional: Reports fatigue, Denies fever(s), Denies headache(s) and Reports weight loss Eyes: Eyes: Denies eye discharge and Denies irritation ENT: Reports Normal hearing present, Denies dysphagia, Denies dizziness and Denies headache(s) Cardiovascular: Cardiovascular: Denies chest pain, Denies leg edema and Denies dyspnea on exertion Respiratory: Respiratory: Denies cough, Denies dyspnea on exertion and Denies wheezing Gastrointestinal: Gastrointestinal: Reports abdominal pain, Denies change in bowel habits, Denies dysphagia, Denies heartburn and Reports diarrhea Genitourinary: Genitourinary: Denies difficulty voiding and Denies dysuria Musculoskeletal: Musculoskeletal: Denies back pain and Denies arthralgias Integumentary/Breasts: Skin/Breast: Denies pruritus, Denies rash and Denies jaundice Neurologic: Reports Normal hearing present, Denies Abnormal speech present, Reports confusion, Denies dizziness, Denies headache(s) and Denies seizure-like activity Psychiatric: Psychiatric: Denies anxiety, Reports confusion, Denies depression and Denies panic attacks Endocrine: Endocrine: Denies cold intolerance, Reports fatigue, Denies flushing and Denies heat intolerance Hematologic/Lymphatic: Hematologic/Lymphatic: Denies easy bleeding and Denies easy bruising Allergic/Immunologic: Allergic/Immunologic: Denies wheezing PMFSH Past Medical History Medical History Afib Bacteremia Diabetes HTN (hypertension) Pancreatic cancer metastasized to liver Pancytopenia Protein calorie malnutrition Surgical History Surgical History No pertinent past surgical history Social History Social History Household Members: None Housing: Assisted Patient Tobacco Use Status: Never used Tobacco service: No Current occupational status: disabled [employer] Allergies Allergy/AdvReac Type Severity Reaction Status Date / Time No Known Allergies Allergy Verified 06/21/21 23:13 Active Medications: Current Medications Acetaminophen (Acetaminophen 325 Mg Tablet) 650 mg PO Q6H PRN PRN Reason: Pain, Mild (Pain Scale 1-3) Albuterol Sulfate (Albuterol Sulfate 90 Mcg 8 Gm Inhaler) 2 puff INHALE Q4H PRN PRN Reason: Shortness of Breath/Wheezing Lipase/Protease/Amylase (Lipase/Prot/Amylase 24/76/120k 1 Cap Capsule.Dr) 4 cap PO TID [facility] Last Admin: 06/22/21 08:58 Dose: Not Given Documented by: Atorvastatin Calcium (Atorvastatin Calcium 40 Mg Tablet) 40 mg PO DAILY [facility] Last Admin: 06/22/21 08:45 Dose: 40 mg Documented by: Cholestyramine Resin (Cholestyramine (With Sugar) 4 Gm Powd.Pack) 4 gm PO BID PRN PRN Reason: Loose Stool Dibucaine (Dibucaine 1 % Oint 28 Gm Tube) 1 appl TOPICAL Q6H PRN PRN Reason: Hemorrhoids Diphenoxylate HCl/Atropine (Diphenoxylate/Atrop 2.5/0.025 Tablet) 1 tab PO Q6H PRN PRN Reason: Loose Stool Ferrous Sulfate (Ferrous Sulfate 324 Mg Tablet.Dr) 324 mg PO DAILY [facility] Last Admin: 06/22/21 08:45 Dose: 324 mg Documented by: Hydromorphone HCl (Hydromorphone Hcl 1 Mg/Ml Syringe) 0.8 mg IVPUSH Q4H PRN; Protocol PRN Reason: severe pain Sodium Bicarbonate 150 meq/ (Dextrose) 1,000 mls @ 100 mls/hr IV .Q10H [facility] Last Admin: 06/22/21 07:31 Dose: 100 mls/hr Documented by: Metoprolol Succinate (Metoprolol Succinate Er 50 Mg Tab.Er.24h) 50 mg PO BID [facility]; Protocol Last Admin: 06/22/21 08:45 Dose: 50 mg Documented by: Mirtazapine (Mirtazapine 7.5 Mg Tablet) 7.5 mg PO BEDTIME JACOBO Morphine Sulfate (Morphine Sulfate Er 15 Mg Tablet.Er) 15 mg PO TID [facility] Last Admin: 06/22/21 08:46 Dose: Not Given Documented by: Ondansetron HCl (Ondansetron Hcl 4 Mg/2 Ml Vial) 4 mg IVPUSH Q8H PRN PRN Reason: Nausea and Vomiting Pantoprazole Sodium (Pantoprazole Sodium 40 Mg/10 Ml Vial) 40 mg IVPUSH BID@0630,1630 [facility] Last Admin: 06/22/21 07:32 Dose: 40 mg Documented by: Sodium Chloride (0.9 % Sodium Chloride Flush 3 Ml Syringe) 3 ml IVFLUSH QSHIFT [facility] Last Admin: 06/22/21 08:53 Dose: 3 ml Documented by: Thiamine HCl (Thiamine Hcl 100 Mg Tablet) 100 mg PO DAILY [facility] Last Admin: 06/22/21 08:45 Dose: 100 mg Documented by: Vitamin D (Cholecalciferol (Vitamin D3) 25 Mcg Tablet) 25 mcg PO DAILY [facility] Last Admin: 06/22/21 08:45 Dose: 25 mcg Documented by: Home Medications Medication Instructions Recorded Confirmed Last Taken Type albuterol sulfate 90 mcg/actuation 1 - 2 puff INHALATION Q4-6H 06/21/21 06/21/21 Unknown History aerosol inhaler apixaban 5 mg tablet (Eliquis) 1 tab PO BID 06/21/21 06/21/21 Unknown History cholecalciferol (vitamin D3) 25 1 cap PO QAM 06/21/21 06/21/21 Unknown History mcg (1,000 unit) capsule (Vitamin D3) cholestyramine-aspartame 4 gram 1 packet PO BID PRN 06/21/21 06/21/21 Unknown History oral powder for susp in a packet (Cholestyramine Light) cyclosporine 0.05 % eye drops in a 1 drp OPHTHALMIC (EYE) BEDTIME 06/21/21 06/21/21 Unknown History dropperette (Restasis) diphenoxylate-atropine 2.5 1 tab PO Q6H PRN 06/21/21 06/21/21 Unknown History mg-0.025 mg tablet ferrous sulfate 325 mg (65 mg 325 mg PO DAILY 06/21/21 06/21/21 Unknown History iron) tablet (FeroSul) hydromorphone 4 mg tablet 4 mg PO NEEDED PRN 06/21/21 06/21/21 Unknown History lidocaine-prilocaine 2.5 %-2.5 % 1 appl TOPICAL NEEDED PRN 06/21/21 06/21/21 Unknown History topical cream magnesium L-lactate 84 mg 1 tab PO BID 06/21/21 06/21/21 Unknown History tablet,extended release metoprolol succinate 50 mg 1 tab PO BID 06/21/21 06/21/21 Unknown History tablet,extended release 24 hr mirtazapine 15 mg tablet 0.5 tab PO DAILY 06/21/21 06/21/21 Unknown History morphine 15 mg tablet,extended 1 tab PO TID 06/21/21 06/21/21 Unknown History release omeprazole 20 mg capsule,delayed 1 cap PO DAILY 06/21/21 06/21/21 Unknown History release ondansetron HCl 8 mg tablet 1 tab PO TID 06/21/21 06/21/21 Unknown History potassium chloride 10 mEq 1 tab PO BID 06/21/21 06/21/21 Unknown History capsule,extended release thiamine HCl (vitamin B1) 100 mg 1 tab PO DAILY 06/21/21 06/21/21 Unknown History tablet (Vitamin B-1) atorvastatin 40 mg tablet 40 mg PO DAILY 06/22/21 06/22/21 Unknown History fugahh-[id number] 3 cap PO TID 06/22/21 06/22/21 Unknown History 36,000-114,000-180,000 unit capsule,delay rel (Creon) Physical Exam Vital Signs: Vital Signs: Last Vital Signs Temp 98.4 F 06/22/21 10:07 Pulse 96 06/22/21 10:27 Resp 14 06/22/21 10:27 BP 128/71 06/22/21 10:27 Pulse Ox 100 06/22/21 10:06 Body Mass Index 26.2 Const: General: no acute distress, confusion and ill appearing Nutritional Appearance: overweight Orientation/consciousness: confusion Limitations: no limitations HENMT: Head: Yes normal to inspection Ears: hearing grossly normal bilaterally Mouth: Normal oral and palatal mucosa present Eyes: Sclerae: sclerae normal Pupils: Equal, round and reactive pupils present Neck: Neck: Yes normal visual inspection Chest: Chest palpation & inspection: normal inspection of the chest Resp: Effort & Inspection: normal respiratory effort Auscultation: clear to auscultation bilaterally Cardio: Palpation: normal PMI Rate: regular rate Rhythm: regular rhythm Heart sounds: S1 normal heart sound present, S2 normal heart sound present and no murmurs GI: Palpation (GI): Soft to palpation, Tenderness to palpation present (GI) (Mild diffuse abdominal tenderness) and No hepatosplenomegaly present Auscultation: normal bowel sounds Rectal Exam - Female: deferred Skin: General skin exam: no rashes or lesions noted Neuro: General: gait normal, moves all extremities and confusion Cranial nerves: Yes Equal, round and reactive pupils present and Yes Normal hearing present Speech: No Abnormal speech present Psych: Appearance: grossly normal Mental Status: mental status grossly normal Results Labs CBC & Chem 7: 06/29/21 06:26 06/29/21 06:26 Labs: Short CBC 06/21/21 06/21/21 06/22/21 Range/Units 20:00 20:00 00:05 WBC 10.4 (4.8-10.8) X10*3/uL Hgb 8.6 L 7.1 L (12.0-16.0) g/dl Hct 27.6 L 22.4 L (37.0-47.0) % Plt Count 203 D (160-400) X10*3/uL BUN 28 H (9-16) mg/dL 06/22/21 06/22/21 Range/Units 06:23 06:23 WBC 7.1 (4.8-10.8) X10*3/uL Hgb 6.2 L* (12.0-16.0) g/dl Hct 19.3 L* (37.0-47.0) % Plt Count 127 L D (160-400) X10*3/uL BUN 27 H (9-16) mg/dL BMP 06/21/21 06/22/21 20:00 06:23 Sodium 132 L 137 Potassium 3.4 2.3 L* D Chloride 116 H 115 H Carbon Dioxide 6 L* 13 L BUN 28 H 27 H Creatinine 2.01 H 1.46 H Calcium 8.3 L 7.1 L D Liver Function 06/21/21 Range/Units 20:00 Total Bilirubin 0.4 (0.0-1.0) mg/dL Direct Bilirubin 0.2 (0.0-0.5) mg/dL AST 8 (5-31) U/L ALT 9 (0-31) U/L Alkaline Phosphatase 241 H (39-117) U/L Albumin 2.9 L (3.5-5.0) g/dL Microbiology Microbiology Results: Microbiology 06/21/21 18:45 Stool Stool Culture - Preliminary Culture in progress. Assessment and Plan (1) Pancreatic cancer metastasized to liver: Status: Acute (2) Diarrhea: Qualifiers: Diarrhea type: unspecified type Qualified Code(s): R19.7 - Diarrhea, unspecified Status: Acute (3) Metabolic acidosis: Status: Acute (4) Melena: Status: Acute (5) Acute on chronic anemia: Status: Acute Plan Unfortunate 66 YF with DM, hypertension, pancytopenia, protein calorie malnutrition, AFib, metstatic pancreatic cancer and chronic diarrhea seen at [facility] on 06/22/21 with abnormal labs.? She has hyperchloremic metabolic acidosis due to persistent diarrhea. Patient was recently hospitalized at [facility] from 06/18 to 06/20/21 for chronic diarrhea after receiving chemotherapy 06/09 for her metastatic? pancreatic cancer. Diarrhea was felt to be multifactorial - pancreatic insufficiency, chemotherapy related and possible SIBO Patient was evaluated by colonoscopy at [facility] which did not show colitis. She was advised by her GI at [facility] to continue Creon at 72, 000 units and add Rifaximin x 2 weeks for continued diarrhea. Pt has acute on chronic anemia with heme Positive stools likely due to slow GI blood loss from pancreatic cancer eroding into the duodenum. RECOMMENDATIONS: 1. Monitor H& H and transfuse prn 2. If she has decreasing H&H, I will schedule an EGD to evaluate for UGI blood loss from pancreatic ca. 3. Stool electrolytes to estimate amount of bicarbonate loss in the stool. 4. Start Rifaximin 550 mg TID x 14 days for suspected small intestinal bacterial overgrowth (SIBO) - order placed. Stool pH is generally of little importance in the determination of how diarrhea will impact systemic acid-base balance. A better index is the mathematical difference between the sum of the stool sodium plus potassium concentration and the stool chloride concentration; this difference approximates the concentration of stool bicarbonate plus organic acid anion salts (potential bicarbonate). Procedures Date of Service Date of Service: 06/22/21
--- NOTE | 2021-06-22 12:41 | HO.PM.IMPN ---
Subjective Subjective Date of Service: 06/22/21 Interval History: chronic abd pain ongoing diarrhea- watery undergoing transfusion now Review of Systems Review of Systems: Yes all other systems are reviewed and are negative Physical Exam Vital Signs: Vital Signs: Last Vital Signs Temp 98.4 F 06/22/21 10:07 Pulse 96 06/22/21 10:27 Resp 14 06/22/21 10:27 BP 128/71 06/22/21 10:27 Pulse Ox 100 06/22/21 10:06 Body Mass Index 26.2 Gen: in no acute distress but weak-appearing HEENT: sclera anicteric, moist mucus membranes Neck: supple Lungs: clear to auscultation bilaterally Heart: regular rate and rhythm, no murmurs Abd: soft, non-tender, non-distended Ext: no edema Skin: warm/well-perfused, R chest wall with port Neuro: alert and oriented x3, no focal findings Psych: appropriate affect Objective Data Active Medications Acetaminophen (Acetaminophen 325 Mg Tablet) 650 mg PO Q6H PRN PRN Reason: Pain, Mild (Pain Scale 1-3) Albuterol Sulfate (Albuterol Sulfate 90 Mcg 8 Gm Inhaler) 2 puff INHALE Q4H PRN PRN Reason: Shortness of Breath/Wheezing Lipase/Protease/Amylase (Lipase/Prot/Amylase 24/76/120k 1 Cap Capsule.) 4 cap PO TID [facility] Last Admin: 06/22/21 08:58 Dose: Not Given Documented by: DAISHA Non-Admin Reason: Med Not Available Atorvastatin Calcium (Atorvastatin Calcium 40 Mg Tablet) 40 mg PO DAILY [facility] Last Admin: 06/22/21 08:45 Dose: 40 mg Documented by: DAISHA Cholestyramine Resin (Cholestyramine (With Sugar) 4 Gm Powd.Pack) 4 gm PO BID PRN PRN Reason: Loose Stool Dibucaine (Dibucaine 1 % Oint 28 Gm Tube) 1 appl TOPICAL Q6H PRN PRN Reason: Hemorrhoids Diphenoxylate HCl/Atropine (Diphenoxylate/Atrop 2.5/0.025 Tablet) 1 tab PO Q6H PRN PRN Reason: Loose Stool Ferrous Sulfate (Ferrous Sulfate 324 Mg Tablet.) 324 mg PO DAILY [facility] Last Admin: 06/22/21 08:45 Dose: 324 mg Documented by: DAISHA Hydromorphone HCl (Hydromorphone Hcl 1 Mg/Ml Syringe) 0.8 mg IVPUSH Q4H PRN; Protocol PRN Reason: severe pain Sodium Bicarbonate 150 meq/ (Dextrose) 1,000 mls @ 100 mls/hr IV .Q10H [facility] Last Admin: 06/22/21 07:31 Dose: 100 mls/hr Documented by: WALLACE Metoprolol Succinate (Metoprolol Succinate Er 50 Mg Tab.Er.24h) 50 mg PO BID [facility]; Protocol Last Admin: 06/22/21 08:45 Dose: 50 mg Documented by: DAISHA Mirtazapine (Mirtazapine 7.5 Mg Tablet) 7.5 mg PO BEDTIME [facility] Morphine Sulfate (Morphine Sulfate Er 15 Mg Tablet.Er) 15 mg PO TID [facility] Last Admin: 06/22/21 08:46 Dose: Not Given Documented by: DAISHA Non-Admin Reason: Patient Refused Ondansetron HCl (Ondansetron Hcl 4 Mg/2 Ml Vial) 4 mg IVPUSH Q8H PRN PRN Reason: Nausea and Vomiting Pantoprazole Sodium (Pantoprazole Sodium 40 Mg/10 Ml Vial) 40 mg IVPUSH BID@0630,1630 [facility] Last Admin: 06/22/21 07:32 Dose: 40 mg Documented by: WALLACE Sodium Chloride (0.9 % Sodium Chloride Flush 3 Ml Syringe) 3 ml IVFLUSH QSHIFT [facility] Last Admin: 06/22/21 08:53 Dose: 3 ml Documented by: DAISHA Thiamine HCl (Thiamine Hcl 100 Mg Tablet) 100 mg PO DAILY [facility] Last Admin: 06/22/21 08:45 Dose: 100 mg Documented by: DAISHA Vitamin D (Cholecalciferol (Vitamin D3) 25 Mcg Tablet) 25 mcg PO DAILY [facility] Last Admin: 06/22/21 08:45 Dose: 25 mcg Documented by: DAISHA Labs CBC & Chem 7: 06/22/21 06:23 06/22/21 06:23 Labs: Laboratory Results - last 24 hr 06/21/21 06/21/21 06/21/21 18:45 18:45 18:45 MCV MCH MCHC RDW Plt Count MPV Immature Gran % (Auto) Neut % (Auto) Lymph % (Auto) [place] % (Auto) Eos % (Auto) Baso % (Auto) Lymph # (Auto) [place] # (Auto) Eos # (Auto) Baso # (Auto) Abs Immat Gran (auto) Absolute Neuts (auto) Absolute Nucleated RBC Nucleated RBC % (auto) Neutrophils % (Manual) Band Neutrophils % Lymphocytes % (Manual) Atypical Lymphs % (Man) Monocytes % (Manual) Eosinophils % (Manual) Metamyelocytes % Myelocytes % Abs Neuts (Manual) Lymphocytes # (Manual) Atyp Lymphs # (Manual) Monocytes # (Manual) Eosinophils # (Manual) Metamyelocytes # Myelocytes # Nucleated RBCs Smudge Cells Toxic Granulation Dohle Bodies Platelet Estimate Large Platelets Plt Morphology Comment RBC Morphology Polychromasia Hypochromasia Macrocytosis Ovalocytes [place] Cells Acanthocytes (Spur) Schistocytes Smear Path Review O2 Saturation ABG pH at Pt Temp ABG pH (Temp Correct) ABG pCO2 at Pt Temp ABG pCO2 (Temp Corrct ABG pO2 at Pt Temp ABG pO2 (Temp Correct ABG HCO3 ABG Base Excess (Actual) VBG pH VBG pCO2 VBG pO2 VBG HCO3 VBG O2 Saturation VBG Base Excess Anion Gap Estim Creat Clear Calc Estimated GFR Random Glucose Lactic Acid Calcium Magnesium Total Bilirubin Direct Bilirubin AST ALT Alkaline Phosphatase Total Protein Albumin Lipase Stool Occult Blood POSITIVE Stool Leukocytes, Qual NEGATIVE C. difficile Tox B Gene COVID-19 (JOE) Negative COVID-19 Clin Com See Note Blood Type Antibody Screen Crossmatch 06/21/21 06/21/21 06/21/21 18:45 20:00 20:00 MCV 84.7 MCH 26.4 L MCHC 31.2 RDW 20.0 H Plt Count 203 D MPV 10.3 Immature Gran % (Auto) Cancelled Neut % (Auto) Cancelled Lymph % (Auto) Cancelled [place]ern % (Auto) Cancelled Eos % (Auto) Cancelled Baso % (Auto) Cancelled Lymph # (Auto) Cancelled [place]ern # (Auto) Cancelled Eos # (Auto) Cancelled Baso # (Auto) Cancelled Abs Immat Gran (auto) Cancelled Absolute Neuts (auto) Cancelled Absolute Nucleated RBC 0.100 H Nucleated RBC % (auto) 1.0 H Neutrophils % (Manual) 30 L Band Neutrophils % 24 H Lymphocytes % (Manual) 21 Atypical Lymphs % (Man) 2 Monocytes % (Manual) 19 H Eosinophils % (Manual) 1 Metamyelocytes % 2 Myelocytes % 1 Abs Neuts (Manual) 5.6 Lymphocytes # (Manual) 2.2 Atyp Lymphs # (Manual) 0.2 Monocytes # (Manual) 2.0 H Eosinophils # (Manual) 0.1 Metamyelocytes # 0.2 Myelocytes # 0.1 Nucleated RBCs 3 H Smudge Cells PRESENT Toxic Granulation PRESENT Dohle Bodies Platelet Estimate NORMAL Large Platelets PRESENT Plt Morphology Comment NOTED RBC Morphology NOTED Polychromasia 2+ (3-5) Hypochromasia Macrocytosis 1+ (5-14) Ovalocytes 1+ (5-14) [place] Cells 1+ (0-2) Acanthocytes (Spur) 3+ (>5) Schistocytes 1+ (0-2) Smear Path Review Cancelled O2 Saturation ABG pH at Pt Temp ABG pH (Temp Correct) ABG pCO2 at Pt Temp ABG pCO2 (Temp Corrct ABG pO2 at Pt Temp ABG pO2 (Temp Correct ABG HCO3 ABG Base Excess (Actual) VBG pH VBG pCO2 VBG pO2 VBG HCO3 VBG O2 Saturation VBG Base Excess Anion Gap 13 Estim Creat Clear Calc 23.4 Estimated GFR 25 Random Glucose 215 H Lactic Acid Calcium 8.3 L Magnesium 1.8 Total Bilirubin 0.4 Direct Bilirubin 0.2 AST 8 ALT 9 Alkaline Phosphatase 241 H Total Protein 5.8 L Albumin 2.9 L Lipase Stool Occult Blood Stool Leukocytes, Qual C. difficile Tox B Gene NEGATIVE COVID-19 (JOE) COVID-19 Clin Com Blood Type Antibody Screen Crossmatch 06/21/21 06/21/21 06/21/21 20:00 20:00 20:04 MCV MCH MCHC RDW Plt Count MPV Immature Gran % (Auto) Neut % (Auto) Lymph % (Auto) [place] % (Auto) Eos % (Auto) Baso % (Auto) Lymph # (Auto) [place] # (Auto) Eos # (Auto) Baso # (Auto) Abs Immat Gran (auto) Absolute Neuts (auto) Absolute Nucleated RBC Nucleated RBC % (auto) Neutrophils % (Manual) Band Neutrophils % Lymphocytes % (Manual) Atypical Lymphs % (Man) Monocytes % (Manual) Eosinophils % (Manual) Metamyelocytes % Myelocytes % Abs Neuts (Manual) Lymphocytes # (Manual) Atyp Lymphs # (Manual) Monocytes # (Manual) Eosinophils # (Manual) Metamyelocytes # Myelocytes # Nucleated RBCs Smudge Cells Toxic Granulation Dohle Bodies Platelet Estimate Large Platelets Plt Morphology Comment RBC Morphology Polychromasia Hypochromasia Macrocytosis Ovalocytes [place] Cells Acanthocytes (Spur) Schistocytes Smear Path Review O2 Saturation ABG pH at Pt Temp ABG pH (Temp Correct) ABG pCO2 at Pt Temp ABG pCO2 (Temp Corrct ABG pO2 at Pt Temp ABG pO2 (Temp Correct ABG HCO3 ABG Base Excess (Actual) VBG pH 7.09 L* VBG pCO2 12 VBG pO2 65 VBG HCO3 4 L VBG O2 Saturation 86.0 VBG Base Excess -23.3 Anion Gap Estim Creat Clear Calc Estimated GFR Random Glucose Lactic Acid 1.5 Calcium Magnesium Total Bilirubin Direct Bilirubin AST ALT Alkaline Phosphatase Total Protein Albumin Lipase 20 Stool Occult Blood Stool Leukocytes, Qual C. difficile Tox B Gene COVID-19 (JOE) COVID-19 Clin Com Blood Type Antibody Screen Crossmatch 06/21/21 06/22/21 06/22/21 21:52 06:23 06:23 MCV 80.1 MCH 25.7 L MCHC 32.1 RDW 19.7 H Plt Count 127 L D MPV 10.8 Immature Gran % (Auto) Cancelled Neut % (Auto) Cancelled Lymph % (Auto) Cancelled Kern % (Auto) Cancelled Eos % (Auto) Cancelled Baso % (Auto) Cancelled Lymph # (Auto) Cancelled [place] # (Auto) Cancelled Eos # (Auto) Cancelled Baso # (Auto) Cancelled Abs Immat Gran (auto) Cancelled Absolute Neuts (auto) Cancelled Absolute Nucleated RBC 0.080 H Nucleated RBC % (auto) 1.1 H Neutrophils % (Manual) 58 Band Neutrophils % 20 H Lymphocytes % (Manual) 12 L Atypical Lymphs % (Man) 1 Monocytes % (Manual) 7 Eosinophils % (Manual) Metamyelocytes % 1 Myelocytes % 1 Abs Neuts (Manual) 5.5 Lymphocytes # (Manual) 0.9 L Atyp Lymphs # (Manual) 0.1 Monocytes # (Manual) 0.5 Eosinophils # (Manual) Metamyelocytes # 0.1 Myelocytes # 0.1 Nucleated RBCs 2 H Smudge Cells Toxic Granulation PRESENT Dohle Bodies PRESENT Platelet Estimate DECREASED Large Platelets Plt Morphology Comment NORMAL RBC Morphology NOTED Polychromasia 1+ (0-2) Hypochromasia 2+ (15-30) Macrocytosis Ovalocytes 1+ (5-14) [place] Cells 3+ (>5) Acanthocytes (Spur) Schistocytes 1+ (0-2) Smear Path Review O2 Saturation 98.0 ABG pH at Pt Temp 7.35 ABG pH (Temp Correct) 7.35 ABG pCO2 at Pt Temp 13 L* ABG pCO2 (Temp Corrct 12 L* ABG pO2 at Pt Temp 117 H ABG pO2 (Temp Correct 114 H ABG HCO3 7 L ABG Base Excess (Actual) -15.7 VBG pH VBG pCO2 VBG pO2 VBG HCO3 VBG O2 Saturation VBG Base Excess Anion Gap 11 L Estim Creat Clear Calc 32.2 Estimated GFR 36 Random Glucose 163 H Lactic Acid Calcium 7.1 L D Magnesium 1.5 L Total Bilirubin Direct Bilirubin AST ALT Alkaline Phosphatase Total Protein Albumin Lipase Stool Occult Blood Stool Leukocytes, Qual C. difficile Tox B Gene COVID-19 (JOE) COVID-19 Clin Com Blood Type Antibody Screen Crossmatch 06/22/21 07:34 MCV MCH MCHC RDW Plt Count MPV Immature Gran % (Auto) Neut % (Auto) Lymph % (Auto) [place] % (Auto) Eos % (Auto) Baso % (Auto) Lymph # (Auto) [place] # (Auto) Eos # (Auto) Baso # (Auto) Abs Immat Gran (auto) Absolute Neuts (auto) Absolute Nucleated RBC Nucleated RBC % (auto) Neutrophils % (Manual) Band Neutrophils % Lymphocytes % (Manual) Atypical Lymphs % (Man) Monocytes % (Manual) Eosinophils % (Manual) Metamyelocytes % Myelocytes % Abs Neuts (Manual) Lymphocytes # (Manual) Atyp Lymphs # (Manual) Monocytes # (Manual) Eosinophils # (Manual) Metamyelocytes # Myelocytes # Nucleated RBCs Smudge Cells Toxic Granulation Dohle Bodies Platelet Estimate Large Platelets Plt Morphology Comment RBC Morphology Polychromasia Hypochromasia Macrocytosis Ovalocytes [place] Cells Acanthocytes (Spur) Schistocytes Smear Path Review O2 Saturation ABG pH at Pt Temp ABG pH (Temp Correct) ABG pCO2 at Pt Temp ABG pCO2 (Temp Corrct ABG pO2 at Pt Temp ABG pO2 (Temp Correct ABG HCO3 ABG Base Excess (Actual) VBG pH VBG pCO2 VBG pO2 VBG HCO3 VBG O2 Saturation VBG Base Excess Anion Gap Estim Creat Clear Calc Estimated GFR Random Glucose Lactic Acid Calcium Magnesium Total Bilirubin Direct Bilirubin AST ALT Alkaline Phosphatase Total Protein Albumin Lipase Stool Occult Blood Stool Leukocytes, Qual C. difficile Tox B Gene COVID-19 (JOE) COVID-19 Clin Com Blood Type A Positive Antibody Screen NEGATIVE Crossmatch See Detail Microbiology Microbiology Results: Microbiology 06/21/21 18:45 Stool Culture - Preliminary Stool Culture in progress. Assessment and Plan (1) Metabolic acidosis: Status: Acute (2) Diarrhea: Status: Acute (3) Melena: Status: Acute (4) Hypokalemia: Status: Acute Assessment and Plan: hospital d#2 66yo F with stage IV pancreatic CA s/p 2 cycles chemotherapy, A on apixaban, DM2, HTN, HLD [place] [facility] [place] with metabolic acidosis and multiple electrolyte abnormalities due to diarrhea discharged to [facility] send back in with recurrent acidosis and had episode of melena # metabolic acidosis # hypokalemia # hypomagnesemia - due to chronic diarrhea - replete bicarbonate and potassium and magnesium IV and recheck BMP at 14:00 # melena # acute/chronic blood loss anemia - hold apixaban - PPI - GI consult - transfuse 1u pRBCs, recheck H+H 14 14:00 # chronic diarrhea - likely due to chemotherapy + pancreatic insufficiency # pancreatic insufficiency - enzyme replacement, cholestyramine # AF - hold anticoagulation due to GIB - continue metoprolol succinate # HTN - metoprolol succinate # DM2 - correction-dose lispro # HLD - statin # chronic cancer pain -continue MSSR - prn IV hydromorphone # VTE ppx - SCDs Quality Stroke Does the patient have a stroke diagnosis?: No VTE Prior VTE?: No VTE Risk Level:: Medical - moderate - high VTE Device Contraindication: N/A - Device Ordered VTE Drug Contraindication: Treatment Not Indicated
[2021-06-22 13:37] LABS: Hematocrit 23.5 % (37.0-47.0); Hemoglobin 7.7 g/dl (12.0-16.0)
[2021-06-22 13:55] LABS: Anion Gap 13 (12-20); Blood Urea Nitrogen 26 mg/dL (9-16); Calcium 6.7 mg/dL (8.4-10.2); Carbon Dioxide 14 mmol/L (22-29); Chloride 112 mmol/L (96-108); Creatinine Clr Calc Pharmacy 38.8; Estimated Glomerular Filt Rate 45; Glucose Random 232 mg/dL (60-115); Potassium 2.8 mmol/L (3.3-5.1); Sodium 136 mmol/L (135-145)
[2021-06-22] MEDS: Magnesium Sulfate/H2O 2 GM/50 ML PIGGYBACK IV (14:26)
--- NOTE | 2021-06-22 15:00 | MHC.CM.PN ---
Addendum entered by Keyla Contreras 06/22/21 16:04: CORRECTION: PT CURRENTLY ON OBSERVATION STATUS, NOTICE NOW DELIVERED Original Note: PT UNABLE TO PROVIDE MUCH INFORMATION DUE TO WEAKNESS. CM CALLED THE PC LISTED, [facility] ([phone]) WHO PT REPORTS IS HER HCP. CM SPOKE PRIMARILY TO [facility] ALTHOUGH HE WAS ALSO THERE. THEY REPORT THE PT LIVES ALONE AND ALTHOUGH THEY FEEL SHE NEEDS HOME SERVICES, THEY DO NOT THINK SHE EVER HAD THEM ARRANGED. THEY REPORT THE PT OFTEN BECOMES DEHYDRATED DUE TO VOMITING AND DIARRHEA CAUSED BY CHEMO. THEY ALSO REPORTED THEY THOUGHT THE PT DID THE HCP PREVIOUSLY HOWEVER CM INFORMED THEM IT IS NOT ON FILE HERE OR THE STR. [facility] REPORTS BEING AGREEABLE TO HER LISTING HIM THE AGENT. A HCP WAS DONE WITH PT TODAY. SHE ALSO HAS A MOLST IN THE CHART THAT [facility] THE [facility]. SHE IS A FULL CODE. PT WAS RECENTLY AT [facility] AND FROM THERE WENT TO [facility] FOR STR. PER [facility]ILLO AT [facility], PT WAS TRANSFERRED THERE ON WEDNESDAY. PT WILL LIKELY NEED TO RETURN TO [facility] PRIOR TO GOING HOME. CM WILL CONTACT ILDEFONSO AT [facility] WEDNESDAY TO DETERMINE IF PT HAS SERVICES IN THE HOME OR MAY BE ABLE TO GET THEM ONCE SHE IS DONE WITH STR. IMM WAS DELIVERED.
[2021-06-22 16:33] LABS: Glucose, Whole Blood 205 mg/dL (60-115)
[2021-06-22 16:47] LABS: Appearance Urine HAZY; Color Urine YELLOW; Glucose Urine UA NEG (NEG); Leukocyte Esterase Urine 1+ (NEG); Nitrite Urine NEG (NEG); UACC Culture Trigger YES; Urine Blood 3+ (NEG); Urine Ketones NEG (NEG); Urine Protein TRACE MG/DL (NEG-TRACE)
[2021-06-22 17:03] LABS: Bacteria Urine 1+ /LPF; Squamous Epithelial Cell Urine TRACE /LPF
[2021-06-22 17:04] LABS: Mucus Urine TRACE /LPF
[2021-06-22] MEDS: HYDROmorphone HCl 1 MG/ML SYRINGE 0.8 MG IVPUSH (17:10)
--- NOTE | 2021-06-22 17:54 | PC.NURSE ---
ED ADMISSION AT 1347 VIA STRETCHER. VERY POOR HISTORIAN. VAUGE AND DROWSY. CONTINUES TO HAVE WATERY DIARRHEA. SAMPLE FOR STOOL AND URINE COLLECTED AND SENT TO LAB. DINNER POC 205, BUT PT REFUSES TO EAT. MD NOTIFIED. PER MD HOLD DINNER INSULIN. HCP FORM CREATED AND ADDED TO CHART, COPY WITH PATIENT. MOLST FORM THAT WAS SENT FROM FACILITY INVALID DUE TO MISSING INFORMATION/DATES ON FORM.
[2021-06-22 20:28] LABS: Glucose, Whole Blood 200 mg/dL (60-115)
[2021-06-22 20:40] LABS: Anion Gap 13 (12-20); Blood Urea Nitrogen 24 mg/dL (9-16); Calcium 6.8 mg/dL (8.4-10.2); Carbon Dioxide 17 mmol/L (22-29); Chloride 110 mmol/L (96-108); Estimated Glomerular Filt Rate 54; Glucose Random 226 mg/dL (60-115); Sodium 137 mmol/L (135-145)
[2021-06-22 20:42] LABS: CDiff Gene PCR NEGATIVE (Negative)
[2021-06-22] MEDS: Mirtazapine 7.5 MG TABLET PO (20:52)
[2021-06-23] VITALS (8 sets, daily range): BP systolic 104–130; BP diastolic 59–80; PULSE 75–105; RESP 18–20; TEMP 36.2–37; O2SAT 96–100
--- NOTE | 2021-06-23 | ECG_ITS ---
Test Reason : tachycardia Blood Pressure : / mmHG Vent. Rate : 136 BPM Atrial Rate : 136 BPM P-R Int : 126 ms QRS Dur : 064 ms QT Int : 270 ms P-R-T Axes : 092 -18 171 degrees QTc Int : 406 ms Sinus tachycardia with occasional Premature atrial complexes Low voltage QRS Left axis deviation Nonspecific ST and T wave abnormality Abnormal ECG Heart rate has increased Premature ventricular complexes are no longer Present Premature atrial complexes are new Referred By: Rosita Person Electronically Signed By:AXEL ROMERO MD
[2021-06-23] MEDS: Sodium Bicarbonate 8.4% 150 MEQ in Dextrose 5 % 850 ML 100 MEQ IV ×2 (02:28→22:30)
[2021-06-23] MEDS: Pantoprazole Sodium 40 MG/10 ML VIAL IVPUSH ×2 (05:25→18:55)
[2021-06-23 06:49] LABS: Anion Gap 16 (12-20); Blood Urea Nitrogen 23 mg/dL (9-16); Calcium 7.1 mg/dL (8.4-10.2); Carbon Dioxide 20 mmol/L (22-29); Chloride 107 mmol/L (96-108); Creatinine Clr Calc Pharmacy 61.2; Estimated Glomerular Filt Rate > 60; Glucose Random 202 mg/dL (60-115); Magnesium 1.6 mg/dL (1.6-2.6); Sodium 140 mmol/L (135-145)
[2021-06-23 06:54] LABS: Hematocrit 24.8 % (37.0-47.0); Hemoglobin 8.1 g/dl (12.0-16.0); Mean Corpuscular HGB Conc 32.7 g/dl (31.0-35.0); Mean Corpuscular Volume 79.7 fL (80.0-98.0); NRBC Pct Auto 0.7 /100WBC (0.0-0.2); Platelet Count 113 X10*3/uL (160-400); Red Blood Count 3.11 X10*6/uL (4.20-5.50); Red Cell Distribution Width 18.7 % (11.0-16.0)
[2021-06-23 07:15] LABS: Glucose, Whole Blood 224 mg/dL (60-115)
[2021-06-23 07:36] LABS: Potassium 2.5 mmol/L (3.3-5.1)
[2021-06-23 08:25] LABS: Phosphorus 2.2 mg/dL (2.7-4.5)
[2021-06-23] MEDS: Potassium Chloride Packet 20 MEQ PACKET 40 MEQ PO ×2 (09:57→13:07)
[2021-06-23] MEDS: Potassium Chloride/H20 10 MEQ/100 ML PIGGYBACK 100 MEQ IV ×4 (09:58→14:29)
[2021-06-23] MEDS: Lipase/Prot/Amylase 24/76/120K 1 CAP CAPSULE.DR 4 CAP PO ×2 (09:59→14:28)
[2021-06-23] MEDS: Thiamine HCL 100 MG TABLET PO (09:59)
[2021-06-23] MEDS: Ferrous Sulfate 324 MG TABLET.DR PO (09:59)
[2021-06-23] MEDS: Metoprolol Succinate ER 50 MG TAB.ER.24H PO (09:59)
[2021-06-23] MEDS: rifAXIMin 550 MG TABLET PO ×2 (09:59→14:28)
[2021-06-23] MEDS: Morphine Sulfate ER 15 MG TABLET.ER PO ×2 (09:59→14:28)
[2021-06-23] MEDS: 0.9 % Sodium Chloride Flush 3 ML SYRINGE IVFLUSH ×2 (10:00→18:55)
[2021-06-23] MEDS: Atorvastatin Calcium 40 MG TABLET PO (10:00)
[2021-06-23] MEDS: Cholecalciferol (Vitamin D3) 25 MCG TABLET PO (10:00)
[2021-06-23] MEDS: Insulin Lispro 100 UNIT/ML 3 ML VIAL SUBCUT ×2 (10:00→12:45)
[2021-06-23 11:15] LABS: Glucose, Whole Blood 172 mg/dL (60-115)
--- NOTE | 2021-06-23 11:19 | HO.PM.IMPN ---
Subjective Subjective Date of Service: 06/23/21 Interval History: feels better, though still having watery diarrhea chronic abd pain well-controlled on current regimen K low again Review of Systems Review of Systems: Yes all other systems are reviewed and are negative Physical Exam Vital Signs: Vital Signs: Last Vital Signs Temp 97.1 F 06/23/21 07:20 Pulse 92 06/23/21 09:59 Resp 20 06/23/21 07:20 BP 117/60 06/23/21 09:59 Pulse Ox 99 06/23/21 07:20 Body Mass Index 28.5 Gen: in no acute distress but weak-appearing HEENT: sclera anicteric, moist mucus membranes Neck: supple Lungs: clear to auscultation bilaterally Heart: regular rate and rhythm, no murmurs Abd: soft, diffusely tender without rebound, non-distended Ext: no edema Skin: warm/well-perfused, R chest wall with port Neuro: alert and oriented x3, no focal findings Psych: appropriate affect Objective Data Active Medications Acetaminophen (Acetaminophen 325 Mg Tablet) 650 mg PO Q6H PRN PRN Reason: Pain, Mild (Pain Scale 1-3) Albuterol Sulfate (Albuterol Sulfate 90 Mcg 8 Gm Inhaler) 2 puff INHALE Q4H PRN PRN Reason: Shortness of Breath/Wheezing Lipase/Protease/Amylase (Lipase/Prot/Amylase 24/76/120k 1 Cap Capsule.Dr) 4 cap PO TID [facility] Last Admin: 06/23/21 09:59 Dose: 4 cap Documented by: NATALY Atorvastatin Calcium (Atorvastatin Calcium 40 Mg Tablet) 40 mg PO DAILY [facility] Last Admin: 06/23/21 10:00 Dose: 40 mg Documented by: NATALY Cholestyramine Resin (Cholestyramine (With Sugar) 4 Gm Powd.Pack) 4 gm PO BID PRN PRN Reason: Loose Stool Dextrose (Dextrose 50 % 25 Gm/50 Ml Vial) 25 gm IVPUSH Q15M PRN; Protocol PRN Reason: per Hypoglycemia Standing Ord. Dibucaine (Dibucaine 1 % Oint 28 Gm Tube) 1 appl TOPICAL Q6H PRN PRN Reason: Hemorrhoids Diphenoxylate HCl/Atropine (Diphenoxylate/Atrop 2.5/0.025 Tablet) 1 tab PO Q6H PRN PRN Reason: Loose Stool Ferrous Sulfate (Ferrous Sulfate 324 Mg Tablet.Dr) 324 mg PO DAILY [facility] Last Admin: 06/23/21 09:59 Dose: 324 mg Documented by: NATALY Glucose (Glucose Gel 15 Gm Gel..Gram.) 15 gm PO Q15M PRN; Protocol PRN Reason: per Hypoglycemia Standing Ord. Hydromorphone HCl (Hydromorphone Hcl 1 Mg/Ml Syringe) 0.8 mg IVPUSH Q4H PRN; Protocol PRN Reason: severe pain Last Admin: 06/22/21 17:10 Dose: 0.8 mg Documented by: GUMARO Sodium Bicarbonate 150 meq/ (Dextrose) 1,000 mls @ 100 mls/hr IV .Q10H [facility] Last Admin: 06/23/21 02:28 Dose: 100 mls/hr Documented by: SIRI Potassium Chloride () 10 meq in 100 mls @ 100 mls/hr IV Q1H [facility] Stop: 06/23/21 11:44 Last Infusion: 06/23/21 11:05 Dose: 0 mls/hr Documented by: NATALY Insulin Human Lispro (Insulin Lispro 100 Unit/Ml 3 Ml Vial) 0 unit SUBCUT QIDACHS [facility]; Protocol Last Admin: 06/23/21 10:00 Dose: 4 unit Documented by: NATALY Metoprolol Succinate (Metoprolol Succinate Er 50 Mg Tab.Er.24h) 50 mg PO BID [facility]; Protocol Last Admin: 06/23/21 09:59 Dose: 50 mg Documented by: NATALY Mirtazapine (Mirtazapine 7.5 Mg Tablet) 7.5 mg PO BEDTIME [facility] Last Admin: 06/22/21 20:52 Dose: 7.5 mg Documented by: SIRI Morphine Sulfate (Morphine Sulfate Er 15 Mg Tablet.Er) 15 mg PO TID [facility] Last Admin: 06/23/21 09:59 Dose: 15 mg Documented by: NATALY Ondansetron HCl (Ondansetron Hcl 4 Mg/2 Ml Vial) 4 mg IVPUSH Q8H PRN PRN Reason: Nausea and Vomiting Pantoprazole Sodium (Pantoprazole Sodium 40 Mg/10 Ml Vial) 40 mg IVPUSH BID@0630,1630 [facility] Last Admin: 06/23/21 05:25 Dose: 40 mg Documented by: HO.ANTOIC Potassium Chloride (Potassium Chloride Packet 20 Meq Packet) 40 meq PO Q4H [facility] Stop: 06/23/21 11:46 Last Admin: 06/23/21 09:57 Dose: 40 meq Documented by: NATALY Rifaximin (Rifaximin 550 Mg Tablet) 550 mg PO TID [facility] Last Admin: 06/23/21 09:59 Dose: 550 mg Documented by: NATALY Sodium Chloride (0.9 % Sodium Chloride Flush 3 Ml Syringe) 3 ml IVFLUSH QSHIFT [facility] Last Admin: 06/23/21 10:00 Dose: 3 ml Documented by: NATALY Thiamine HCl (Thiamine Hcl 100 Mg Tablet) 100 mg PO DAILY [facility] Last Admin: 06/23/21 09:59 Dose: 100 mg Documented by: NATALY Vitamin D (Cholecalciferol (Vitamin D3) 25 Mcg Tablet) 25 mcg PO DAILY [facility] Last Admin: 06/23/21 10:00 Dose: 25 mcg Documented by: NATALY Labs CBC & Chem 7: 06/23/21 06:08 06/23/21 06:08 Labs: Laboratory Results - last 24 hr 06/22/21 06/22/21 06/22/21 13:30 16:26 16:26 MCV MCH MCHC RDW Plt Count MPV Absolute Nucleated RBC Nucleated RBC % (auto) Anion Gap 13 Estim Creat Clear Calc 38.8 Estimated GFR 45 POC Glucose Random Glucose 232 H Calcium 6.7 L Phosphorus Magnesium Urine Color YELLOW Urine Appearance HAZY Urine pH 6.0 Ur Specific [place] 1.020 Urine Protein TRACE Urine Glucose (UA) NEG Urine Ketones NEG Urine Blood 3+ H Urine Nitrite NEG Ur Leukocyte Esterase 1+ H Urine RBC 1-4 Urine WBC 10-14 H Ur Squamous Epith Cells TRACE Urine Bacteria 1+ Urine Mucus TRACE Urine Yeast TRACE C. difficile Tox B Gene NEGATIVE 06/22/21 06/22/21 06/22/21 16:31 20:11 20:25 MCV MCH MCHC RDW Plt Count MPV Absolute Nucleated RBC Nucleated RBC % (auto) Anion Gap 13 Estim Creat Clear Calc 48.0 Estimated GFR 54 POC Glucose 205 H 200 H Random Glucose 226 H Calcium 6.8 L Phosphorus Magnesium Urine Color Urine Appearance Urine pH Ur Specific [place] Urine Protein Urine Glucose (UA) Urine Ketones Urine Blood Urine Nitrite Ur Leukocyte Esterase Urine RBC Urine WBC Ur Squamous Epith Cells Urine Bacteria Urine Mucus Urine Yeast C. difficile Tox B Gene 06/23/21 06/23/21 06/23/21 06:08 06:08 07:08 MCV 79.7 L MCH 26.0 L MCHC 32.7 RDW 18.7 H Plt Count 113 L MPV Not Reportable Absolute Nucleated RBC 0.100 H Nucleated RBC % (auto) 0.7 H Anion Gap 16 Estim Creat Clear Calc 61.2 Estimated GFR > 60 POC Glucose 224 H Random Glucose 202 H Calcium 7.1 L Phosphorus 2.2 L Magnesium 1.6 Urine Color Urine Appearance Urine pH Ur Specific [place] Urine Protein Urine Glucose (UA) Urine Ketones Urine Blood Urine Nitrite Ur Leukocyte Esterase Urine RBC Urine WBC Ur Squamous Epith Cells Urine Bacteria Urine Mucus Urine Yeast C. difficile Tox B Gene 06/23/21 11:06 MCV MCH MCHC RDW Plt Count MPV Absolute Nucleated RBC Nucleated RBC % (auto) Anion Gap Estim Creat Clear Calc Estimated GFR POC Glucose 172 H Random Glucose Calcium Phosphorus Magnesium Urine Color Urine Appearance Urine pH Ur Specific [place] Urine Protein Urine Glucose (UA) Urine Ketones Urine Blood Urine Nitrite Ur Leukocyte Esterase Urine RBC Urine WBC Ur Squamous Epith Cells Urine Bacteria Urine Mucus Urine Yeast C. difficile Tox B Gene Microbiology Microbiology Results: Microbiology 06/22/21 16:51 Urine Culture - Preliminary Urine clean catch - Clean Catch Midstream Culture too young to evaluate. 06/21/21 18:45 Stool Culture - Preliminary Stool Culture in progress. 06/22/21 16:26 Stool Culture - Preliminary Stool Culture in progress. 06/21/21 20:00 Blood Culture - Preliminary Blood - Venous No growth after 24 hours. 06/21/21 20:00 Blood Culture - Preliminary Blood - Venous No growth after 24 hours. Assessment and Plan (1) Metabolic acidosis: Status: Acute (2) Diarrhea: Status: Acute (3) Melena: Status: Acute (4) Hypokalemia: Status: Acute Assessment and Plan: hospital d#3 66yo F with stage IV pancreatic CA s/p EUS_guided gastrojejunostomy with stenting and s/p 4 cycles FOLFIRINOX chemotherapy, AF on apixaban, DM2, HTN, HLD admitted to [facility] 06/18-06/19 with metabolic acidosis and multiple electrolyte abnormalities due to diarrhea discharged to [facility] send back in with recurrent acidosis and had episode of melena # metabolic acidosis - improving, continue bicarbonate IV # hypokalemia - replete IV+PO, recheck BMP at 15:00 today # hypomagnesemia - repleted # melena # acute/chronic blood loss anemia - held apixaban, Hb appropriate p 1u pRBCs transfused 06/22, continue PPI, GI following - transfuse 1u pRBCs, recheck H+H 14 14:00 # chronic diarrhea - likely due to chemotherapy + pancreatic insufficiency + possible SIBO- rifaxmin started as per GI- on d#08/15 # pancreatic insufficiency - enzyme replacement, cholestyramine # pAF - hold anticoagulation due to GIB - continue metoprolol succinate # HTN - metoprolol succinate # DM2 - correction-dose lispro # HLD - statin # chronic cancer pain - continue MSSR - prn IV hydromorphone # VTE ppx - SCDs # dispo - eventual return back to [facility] Stroke Does the patient have a stroke diagnosis?: No VTE Prior VTE?: No VTE Risk Level:: Medical - moderate - high VTE Device Contraindication: N/A - Device Ordered VTE Drug Contraindication: Treatment Not Indicated
--- NOTE | 2021-06-23 12:29 | MHC.CM.PN ---
EMR REVIEWED, PER HOSPITALIST PT IMPROVING AND ANTICIPATE D/C 1-2 DAYS, CM WILL CONT TO FOLLOW D/C NEEDS.
[2021-06-23 16:43] LABS: Glucose, Whole Blood 124 mg/dL (60-115)
[2021-06-23 17:49] LABS: Hematocrit 25.6 % (37.0-47.0); Hemoglobin 8.2 g/dl (12.0-16.0)
[2021-06-23 17:56] LABS: ABG Base Excess -2.5 mmol/L; ABG HCO3 17 mmol/L (22-26); ABG pCO2 19 mmHg (32-45); ABG pH 7.57 (7.35-7.45); ABG pH TC 7.57 (7.35-7.45); ABG pO2 45 mmHg (83-108); ABG pO2 TC 44 (83-108)
[2021-06-23 17:59] LABS: ABG Refer to POC result
[2021-06-23 18:00] LABS: ABG pCO2 TC 19 mmHg (32-45)
--- NOTE | 2021-06-23 18:10 | PM.EVENT ---
Event Note Date of Service: 06/24/21 Event Note: called by RN to assess for pt for rigors, tachycardia in the 130s mildly hypoxic, SaO2 88% on RA, recovered to 100% with 4L via NC pt tachypneic, lungs clear, tachycardic with no murmurs EKG sinus tachycardia ABG shows pH 7.57/pCO2 19/paO2 45 Hb stable at 8.2 lactate 7.1 SCr 0.84 K 3.3 Na 138 PCT pending 5.77 CXR with RUL PNA plan: suppl O2 via NC, check BCx, check nasal MRSA swab + urinary antigen studies, IV fluid bolus, start pip/diana + vancomycin for HCAP in pt with risk factors for MDR - chemotherapy infusion, frequent hospitalizations
--- NOTE | 2021-06-23 18:41 | PHA.PROG ---
Admission Date/Time: June 21, 2021 22:52 Indication: Respiratory Weight in k.5 kg Adjusted body weight in Kg: Leeper body weight in Kg: Obesity Dosing Indication % IBW: Serum Creatinine - Last 168 Hours 06/21/21 06/22/21 06/22/21 20:00 06:23 13:30 Creatinine 2.01 H 1.46 H 1.21 06/22/21 06/23/21 20:11 06:08 Creatinine 1.02 0.80 Estimated CrCl and GFR - Last 168 Hours 06/21/21 06/22/21 06/22/21 20:00 06:23 13:30 Estim Creat Clear Calc 23.4 32.2 38.8 Estimated GFR 25 36 45 06/22/21 06/23/21 20:11 06:08 Estim Creat Clear Calc 48.0 61.2 Estimated GFR 54 > 60 Vancomycin Loading Dose: 1500 mg Current Vancomycin Dosing Regimen: 1250mg q24h Vancomycin Monitoring using AUC goal of 400 - 600 range with trough as surrogate marker: auc 468, trough 13.4 Date and Time for next Vancomycin Level to be drawn: 06/25/21 @1700 Pharmacist Comments on Vancomycin Plan: Suspected to reach goal at third dose...getting trough after second dose for safety monitoring Vancomycin dosing will take advantage of [employer] as a clinical decision support tool that uses Bayesian modeling to calculate individual patient's pharmacokinetic parameters and forecast the patient's drug concentration time course with the target goal AUC 24 range of 400 - 600 mg/L/hr.
[2021-06-23 18:53] LABS: Procalcitonin 5.77 ng/mL
[2021-06-23] MEDS: Piperacillin Sodium/Tazobactam 3.375 GM in 0.9 % Sodium Chloride 50 ML IV (18:55)
[2021-06-23 19:24] LABS: Troponin-I High Sensitivity 12.4 ng/L (<3.5-17.0)
[2021-06-23 19:31] LABS: Lactic Acid 7.1 mmol/L (0.5-2.0)
[2021-06-23] MEDS: vancomycin HCL 1,500 MG in 0.9 % Sodium Chloride 500 ML 333.33 MG IV (20:14)
[2021-06-23] MEDS: 0.9 % Sodium Chloride 1,000 ML 125 ML IVCONT (20:14)
[2021-06-23 20:20] LABS: Glucose, Whole Blood 157 mg/dL (60-115)
[2021-06-23 20:56] LABS: Reflex Lactate? Lactic Acid Added
[2021-06-23 21:07] LABS: Anion Gap 19 (12-20); Blood Urea Nitrogen 21 mg/dL (9-16); Calcium 7.4 mg/dL (8.4-10.2); Carbon Dioxide 16 mmol/L (22-29); Chloride 106 mmol/L (96-108); Creatinine Clr Calc Pharmacy 58.3; Estimated Glomerular Filt Rate > 60; Glucose Random 178 mg/dL (60-115); Potassium 3.3 mmol/L (3.3-5.1); Sodium 138 mmol/L (135-145)
[2021-06-23 21:16] LABS: Magnesium 1.5 mg/dL (1.6-2.6)
[2021-06-23 21:30] LABS: ~Lactic Acid-LAB USE ONLY 7.5 mmol/L (0.5-2.0)
[2021-06-23] MEDS: Thiamine HCL 200 MG in 0.9 % Sodium Chloride 100 ML 204 MG IV (22:29)
--- NOTE | 2021-06-23 22:43 | PC.NURSE ---
Appx 1630 RN notified of HR ST sustaining in 140s, upon assessment pt with tremors, labored breath and hypoxic. Provider notified and called to bed side for assessment. EKG obtained, orders for STAT labs. Started IV vanco and IV zosyn. Pt lethargic and sleeping throughout the shift, attempted to admin medications this evening unsuccessful. Critical labs reported to covering provider. Pt conts on sodium bicarb, thiamine given.Pt has episodes of loose stools and incont. Asst x2 to bedside cammode. LS dim currently on 2L NC. Accessed port, flushes with good return. Pt resting at this time, alarms in place, camera in room for safety.
[2021-06-23 23:07] LABS: Reflex Lactate? 2 Y
[2021-06-23 23:46] LABS: ~Lactic Acid-LAB USE ONLY 7.7 mmol/L (0.5-2.0)
[2021-06-24] VITALS (17 sets, daily range): BP systolic 95–154; BP diastolic 55–93; PULSE 70–104; RESP 16–20; TEMP 36.4–38.1; O2SAT 96–99
[2021-06-24] MEDS: 0.9 % Sodium Chloride Flush 3 ML SYRINGE IVFLUSH ×2 (00:03→08:14)
[2021-06-24] MEDS: Piperacillin Sodium/Tazobactam 3.375 GM in 0.9 % Sodium Chloride 50 ML IV ×2 (00:10→05:19)
[2021-06-24] MEDS: Acetaminophen 325 MG TABLET 650 MG PO (01:24)
[2021-06-24 03:09] LABS: Potassium 2.5 mmol/L (3.3-5.1)
[2021-06-24 03:10] LABS: Anion Gap 16 (12-20); Blood Urea Nitrogen 29 mg/dL (9-16); Calcium 6.7 mg/dL (8.4-10.2); Carbon Dioxide 19 mmol/L (22-29); Chloride 106 mmol/L (96-108); Estimated Glomerular Filt Rate 39; Glucose Random 236 mg/dL (60-115); Magnesium 1.5 mg/dL (1.6-2.6); Sodium 138 mmol/L (135-145)
--- NOTE | 2021-06-24 04:56 | PM.EVENT ---
Event Note Date of Service: 06/24/21 Event Note: Bacteremia: Blood cultures resulted growing Gram-positive cocci. Patient on IV vancomycin and Zosyn. Final is pending Hcap: Patient started on IV vancomycin and Zosyn. Breathing comfortably. Severe hypokalemia: Repleted Hypomagnesemia: Repleted Tachycardia: In the setting of sepsis. Improving with IV hydration. Metabolic acidosis: Patient was on sodium bicarbonate drip. Serum bicarb improving. Discontinued sodium bicarb drip. Will consult Nephrology. Severe lactic acidosis: Likely in the setting of sepsis. Continue IV fluids. Patient also received IV thiamine.
[2021-06-24] MEDS: 0.9 % Sodium Chloride 1,000 ML 100 ML IVCONT (05:10)
[2021-06-24] MEDS: Potassium Chloride Packet 20 MEQ PACKET 40 MEQ PO ×3 (05:10→08:05)
[2021-06-24] MEDS: Pantoprazole Sodium 40 MG/10 ML VIAL IVPUSH ×2 (05:19→18:12)
[2021-06-24] MEDS: Magnesium Sulfate/H2O 2 GM/50 ML PIGGYBACK IV ×2 (06:05→08:05)
[2021-06-24 07:29] LABS: Glucose, Whole Blood 235 mg/dL (60-115)
[2021-06-24] MEDS: Potassium Chloride/H20 10 MEQ/100 ML PIGGYBACK 100 MEQ IV ×4 (08:01→15:36)
[2021-06-24] MEDS: Insulin Lispro 100 UNIT/ML 3 ML VIAL SUBCUT (08:14)
[2021-06-24] MEDS: 0.9 % Sodium Chloride 1,000 ML 2055 ML IV (08:16)
[2021-06-24 08:17] LABS: Mean Corpuscular HGB Conc 36.9 g/dl (31.0-35.0); Mean Corpuscular Hemoglobin 31.8 pg (27.0-33.0); Mean Corpuscular Volume 86.1 fL (80.0-98.0); Platelet Count 133 X10*3/uL (160-400); Red Blood Count 1.73 X10*6/uL (4.20-5.50); Red Cell Distribution Width 20.7 % (11.0-16.0)
[2021-06-24 08:36] LABS: Lactic Acid 6.2 mmol/L (0.5-2.0)
[2021-06-24 08:39] LABS: Hematocrit 14.9 % (37.0-47.0); NRBC Pct Auto 2.9 /100WBC (0.0-0.2)
[2021-06-24 08:40] LABS: Hemoglobin 5.5 g/dl (12.0-16.0); White Blood Count 50.5 X10*3/uL (4.8-10.8)
[2021-06-24 08:44] LABS: Anion Gap 18 (12-20); Blood Urea Nitrogen 32 mg/dL (9-16); Calcium 7.1 mg/dL (8.4-10.2); Carbon Dioxide 19 mmol/L (22-29); Chloride 107 mmol/L (96-108); Creatinine Clr Calc Pharmacy 31.4; Estimated Glomerular Filt Rate 33; Glucose Random 242 mg/dL (60-115); Potassium 3.4 mmol/L (3.3-5.1); Sodium 141 mmol/L (135-145)
--- NOTE | 2021-06-24 09:37 | HE.PHANOTE ---
Recommended decreasing the Zosyn dose to 2.25 G Q6H due to the change in CrCl. It went from 58 on 06/22/21 to 31 on 06/24/21. Recommendation accepted by the provider.
[2021-06-24 10:04] LABS: Reflex Lactate? Lactic Acid Added
--- NOTE | 2021-06-24 10:29 | P.PNIM_ITS ---
Subjective Subjective Date of Service: 06/24/21 Interval History: C/o LLQ pain pain Febrile to 101.5 overnight No longer tremulous BCx growing GPRs + GPCs WBC very high, H+H very low Review of Systems Review of Systems: Yes all other systems are reviewed and are negative Physical Exam Vital Signs: Vital Signs: Last Vital Signs Temp 98.4 F 06/24/21 07:11 Pulse 86 06/24/21 07:11 Resp 16 06/24/21 07:11 BP 108/58 L 06/24/21 07:11 Pulse Ox 99 06/24/21 07:11 Body Mass Index 28.5 Gen: ill-appearing HEENT: sclera anicteric, moist mucus membranes Neck: supple Lungs: diminished air entry Heart: regular rate and rhythm, no murmurs Abd: soft, diffusely tender without rebound, no guarding Ext: no edema Skin: warm/well-perfused, R chest wall with port Neuro: alert and oriented x3, no focal findings Psych: appropriate affect Objective Data Active Medications Acetaminophen (Acetaminophen 325 Mg Tablet) 650 mg PO Q6H PRN PRN Reason: Pain, Mild (Pain Scale 1-3) Last Admin: 06/24/21 01:24 Dose: 650 mg Documented by: ALMA Albuterol Sulfate (Albuterol Sulfate 90 Mcg 8 Gm Inhaler) 2 puff INHALE Q4H PRN PRN Reason: Shortness of Breath/Wheezing Lipase/Protease/Amylase (Lipase/Prot/Amylase 24/76/120k 1 Cap Capsule.Dr) 4 cap PO TID [facility] Last Admin: 06/23/21 22:33 Dose: Not Given Documented by: SHRUTHI Non-Admin Reason: See Note Atorvastatin Calcium (Atorvastatin Calcium 40 Mg Tablet) 40 mg PO DAILY [facility] Last Admin: 06/23/21 10:00 Dose: 40 mg Documented by: NATALY Cholestyramine Resin (Cholestyramine (With Sugar) 4 Gm Powd.Pack) 4 gm PO BID PRN PRN Reason: Loose Stool Dextrose (Dextrose 50 % 25 Gm/50 Ml Vial) 25 gm IVPUSH Q15M PRN; Protocol PRN Reason: per Hypoglycemia Standing Ord. Dibucaine (Dibucaine 1 % Oint 28 Gm Tube) 1 appl TOPICAL Q6H PRN PRN Reason: Hemorrhoids Diphenoxylate HCl/Atropine (Diphenoxylate/Atrop 2.5/0.025 Tablet) 1 tab PO Q6H PRN PRN Reason: Loose Stool Ferrous Sulfate (Ferrous Sulfate 324 Mg Tablet.Dr) 324 mg PO DAILY [facility] Last Admin: 06/23/21 09:59 Dose: 324 mg Documented by: NATALY Glucose (Glucose Gel 15 Gm Gel..Gram.) 15 gm PO Q15M PRN; Protocol PRN Reason: per Hypoglycemia Standing Ord. Hydromorphone HCl (Hydromorphone Hcl 1 Mg/Ml Syringe) 0.8 mg IVPUSH Q4H PRN; Protocol PRN Reason: severe pain Last Admin: 06/22/21 17:10 Dose: 0.8 mg Documented by: GUMARO Sodium Chloride (Ns) 1,000 mls @ 100 mls/hr IVCONT .Q10H [facility] Last Admin: 06/24/21 05:10 Dose: 100 mls/hr Documented by: ALMA Potassium Chloride () 10 meq in 100 mls @ 100 mls/hr IV Q1H [facility] Stop: 06/24/21 11:14 Last Infusion: 06/24/21 10:06 Dose: 0 mls/hr Documented by: NATALY Vancomycin HCl 1,000 mg/ (Sodium Chloride) 270 mls @ 270 mls/hr IV Q24H [facility] Piperacillin Sod/Tazobactam (Sod 2.25 gm/ Sodium Chloride) 50 mls @ 100 mls/hr IV Q6H [facility] Insulin Human Lispro (Insulin Lispro 100 Unit/Ml 3 Ml Vial) 0 unit SUBCUT Q IDACHS [facility]; Protocol Last Admin: 06/24/21 08:14 Dose: 4 unit Documented by: NATALY Metoprolol Succinate (Metoprolol Succinate Er 50 Mg Tab.Er.24h) 50 mg PO BID [facility]; Protocol Last Admin: 06/23/21 22:34 Dose: Not Given Documented by: SHRUTHI Non-Admin Reason: See Note Mirtazapine (Mirtazapine 7.5 Mg Tablet) 7.5 mg PO BEDTIME [facility] Last Admin: 06/23/21 22:38 Dose: Not Given Documented by: SHRUTHI Non-Admin Reason: See Note Morphine Sulfate (Morphine Sulfate Er 15 Mg Tablet.Er) 15 mg PO TID [facility] Last Admin: 06/23/21 22:38 Dose: Not Given Documented by: SHRUTHI Non-Admin Reason: See Note Ondansetron HCl (Ondansetron Hcl 4 Mg/2 Ml Vial) 4 mg IVPUSH Q8H PRN PRN Reason: Nausea and Vomiting Pantoprazole Sodium (Pantoprazole Sodium 40 Mg/10 Ml Vial) 40 mg IVPUSH BID@0630,1630 [facility] Last Admin: 06/24/21 05:19 Dose: 40 mg Documented by: ALMA Pharmacy Consult (Consult Rx Vancomycin Dosing) 1 each MISCELLANE DAILY PRN PRN Reason: Consult order Rifaximin (Rifaximin 550 Mg Tablet) 550 mg PO TID [facility] Last Admin: 06/23/21 22:38 Dose: Not Given Documented by: SHRUTHI Non-Admin Reason: See Note Sodium Chloride (0.9 % Sodium Chloride Flush 3 Ml Syringe) 3 ml IVFLUSH QSHIFT [facility] Last Admin: 06/24/21 08:14 Dose: 3 ml Documented by: NATALY Thiamine HCl (Thiamine Hcl 100 Mg Tablet) 100 mg PO DAILY [facility] Last Admin: 06/23/21 09:59 Dose: 100 mg Documented by: NATALY Vitamin D (Cholecalciferol (Vitamin D3) 25 Mcg Tablet) 25 mcg PO DAILY [facility] Last Admin: 06/23/21 10:00 Dose: 25 mcg Documented by: NATALY Labs CBC & Chem 7: 06/24/21 07:54 06/24/21 07:54 Labs: Laboratory Results - last 24 hr 06/22/21 06/22/21 06/23/21 06:23 07:34 06:08 MCV MCH MCHC RDW Plt Count MPV Absolute Nucleated RBC Nucleated RBC % (auto) Smear Path Review O2 Saturation ABG pH at Pt Temp ABG pH (Temp Correct) ABG pCO2 at Pt Temp ABG pCO2 (Temp Corrct ABG pO2 at Pt Temp ABG pO2 (Temp Correct ABG HCO3 ABG Base Excess (Actual) Anion Gap Estim Creat Clear Calc Estimated GFR POC Glucose Random Glucose Lactic Acid Lactic Acid Fup @ 2Hr Lactic Acid Fup @ 4Hr Calcium Magnesium Troponin I High Sens Procalcitonin 5.77 Blood Type A Positive Antibody Screen NEGATIVE Crossmatch See Detail 06/23/21 06/23/21 06/23/21 11:06 16:38 17:27 MCV MCH MCHC RDW Plt Count MPV Absolute Nucleated RBC Nucleated RBC % (auto) Smear Path Review O2 Saturation 77.0 ABG pH at Pt Temp 7.57 H ABG pH (Temp Correct) 7.57 H ABG pCO2 at Pt Temp 19 L* ABG pCO2 (Temp Corrct 19 L* ABG pO2 at Pt Temp 45 L* ABG pO2 (Temp Correct 44 L* ABG HCO3 17 L ABG Base Excess (Actual) -2.5 Anion Gap Estim Creat Clear Calc Estimated GFR POC Glucose 172 H 124 H Random Glucose Lactic Acid Lactic Acid Fup @ 2Hr Lactic Acid Fup @ 4Hr Calcium Magnesium Troponin I High Sens Procalcitonin Blood Type Antibody Screen Crossmatch 06/23/21 06/23/21 06/23/21 18:51 18:51 19:32 MCV MCH MCHC RDW Plt Count MPV Absolute Nucleated RBC Nucleated RBC % (auto) Smear Path Review O2 Saturation ABG pH at Pt Temp ABG pH (Temp Correct) ABG pCO2 at Pt Temp ABG pCO2 (Temp Corrct ABG pO2 at Pt Temp ABG pO2 (Temp Correct ABG HCO3 ABG Base Excess (Actual) Anion Gap 19 Estim Creat Clear Calc 58.3 Estimated GFR > 60 POC Glucose Random Glucose 178 H Lactic Acid 7.1 H* Lactic Acid Fup @ 2Hr Lactic Acid Fup @ 4Hr Calcium 7.4 L Magnesium Troponin I High Sens 12.4 Procalcitonin Blood Type Antibody Screen Crossmatch 06/23/21 06/23/21 06/23/21 19:32 20:16 21:04 MCV MCH MCHC RDW Plt Count MPV Absolute Nucleated RBC Nucleated RBC % (auto) Smear Path Review O2 Saturation ABG pH at Pt Temp ABG pH (Temp Correct) ABG pCO2 at Pt Temp ABG pCO2 (Temp Corrct ABG pO2 at Pt Temp ABG pO2 (Temp Correct ABG HCO3 ABG Base Excess (Actual) Anion Gap Estim Creat Clear Calc Estimated GFR POC Glucose 157 H Random Glucose Lactic Acid Lactic Acid Fup @ 2Hr 7.5 H* Lactic Acid Fup @ 4Hr Calcium Magnesium 1.5 L Troponin I High Sens Procalcitonin Blood Type Antibody Screen Crossmatch 06/23/21 06/24/21 06/24/21 23:14 02:32 07:25 MCV MCH MCHC RDW Plt Count MPV Absolute Nucleated RBC Nucleated RBC % (auto) Smear Path Review O2 Saturation ABG pH at Pt Temp ABG pH (Temp Correct) ABG pCO2 at Pt Temp ABG pCO2 (Temp Corrct ABG pO2 at Pt Temp ABG pO2 (Temp Correct ABG HCO3 ABG Base Excess (Actual) Anion Gap 16 Estim Creat Clear Calc 36.0 Estimated GFR 39 POC Glucose 235 H Random Glucose 236 H Lactic Acid Lactic Acid Fup @ 2Hr Lactic Acid Fup @ 4Hr 7.7 H* Calcium 6.7 L D Magnesium 1.5 L Troponin I High Sens Procalcitonin Blood Type Antibody Screen Crossmatch 06/24/21 06/24/21 06/24/21 07:54 07:54 07:54 MCV 86.1 D MCH 31.8 MCHC 36.9 H RDW 20.7 H Plt Count 133 L MPV Not Reportable Absolute Nucleated RBC 1.470 H Nucleated RBC % (auto) 2.9 H Smear Path Review O2 Saturation ABG pH at Pt Temp ABG pH (Temp Correct) ABG pCO2 at Pt Temp ABG pCO2 (Temp Corrct ABG pO2 at Pt Temp ABG pO2 (Temp Correct ABG HCO3 ABG Base Excess (Actual) Anion Gap 18 Estim Creat Clear Calc 31.4 Estimated GFR 33 POC Glucose Random Glucose 242 H Lactic Acid 6.2 H* Lactic Acid Fup @ 2Hr Lactic Acid Fup @ 4Hr Calcium 7.1 L Magnesium 2.0 Troponin I High Sens Procalcitonin Blood Type Antibody Screen Crossmatch 06/24/21 09:33 MCV MCH MCHC RDW Plt Count MPV Absolute Nucleated RBC Nucleated RBC % (auto) Smear Path Review O2 Saturation ABG pH at Pt Temp ABG pH (Temp Correct) ABG pCO2 at Pt Temp ABG pCO2 (Temp Corrct ABG pO2 at Pt Temp ABG pO2 (Temp Correct ABG HCO3 ABG Base Excess (Actual) Anion Gap Estim Creat Clear Calc Estimated GFR POC Glucose Random Glucose Lactic Acid Lactic Acid Fup @ 2Hr Lactic Acid Fup @ 4Hr Calcium Magnesium Troponin I High Sens Procalcitonin Blood Type Antibody Screen Crossmatch See Detail Microbiology Microbiology Results: Microbiology 06/22/21 16:51 Urine Culture - Final Urine clean catch - Clean Catch Midstream 06/23/21 18:51 Blood Culture - Preliminary Blood - Venous Prelim: GPR Gram Stain only Prelim: GPC Gram Stain only Prelim: GNR Gram Stain only 06/23/21 17:32 Blood Culture - Preliminary Blood - Venous Prelim: GPR Gram Stain only Prelim: GNR Gram Stain only Prelim: GPC Gram Stain only 06/22/21 16:26 Stool Culture - Preliminary Stool Normal so far. 06/21/21 18:45 Stool Culture - Preliminary Stool Culture in progress. 06/21/21 20:00 Blood Culture - Preliminary Blood - Venous No growth after 48 hours. 06/21/21 20:00 Blood Culture - Preliminary Blood - Venous No growth after 48 hours. Assessment and Plan (1) Metabolic acidosis: Status: Acute (2) Diarrhea: Status: Acute (3) Melena: Status: Acute (4) Hypokalemia: Status: Acute Assessment and Plan: hospital d#4 66yo F with stage IV pancreatic CA s/p EUS-guided gastrojejunostomy with stenting and s/p 4 cycles FOLFIRINOX chemotherapy, AF on apixaban, DM2, HTN, HLD admitted to [facility] [place]19 with metabolic acidosis and multiple electrolyte abnormalities due to diarrhea discharged to [facility] for STR send back in with recurrent acidosis and had episode of melena now septic with polymicrobial bacteremia, pneumonia lactic acidosis, PATRICE # sepsis # polymicrobial bacteremia # pneumonia - vanc + pip/diana d#2, follow BCx, ID consultation - trend PCT # lactic acidosis - PATRICE - suspect due to ischemic colitis. will make NPO. obtain stat CT A/P - continue fluid/blood resuscitation # melena # acute/chronic blood loss anemia - held apixaban, Hb appropriate p 1u pRBCs transfused 06/22, continue PPI, GI following - transfused 1u pRBCs 06/22/21, will give another 2u pRBCs today # hypokalemia - repleted # hypomagnesemia - repleted # chronic diarrhea - likely due to chemotherapy + pancreatic insufficiency + possible SIBO- rifaxmin started as per GI- on d#09/15 # pancreatic insufficiency - enzyme replacement, cholestyramine # pAF - hold anticoagulation due to GIB - continue metoprolol succinate # HTN - metoprolol succinate # DM2 - correction-dose lispro # HLD - statin # chronic cancer pain - continue MSSR - prn IV hydromorphone # VTE ppx - SCDs # dispo - poor prognosis; discussed with pt's HCP/friend Apollo Rosss who now lives in [place]. also discussed with pt's local friend Michelle Ahn [phone]. pt has no surviving family members Quality Stroke Does the patient have a stroke diagnosis?: No VTE Prior VTE?: No VTE Risk Level:: Medical - moderate - high VTE Device Contraindication: N/A - Device Ordered VTE Drug Contraindication: Treatment Not Indicated
[2021-06-24 11:28] LABS: Glucose, Whole Blood 187 mg/dL (60-115)
[2021-06-24 11:28] LABS: Anion Gap 21 (12-20); Blood Urea Nitrogen 34 mg/dL (9-16); Calcium 6.8 mg/dL (8.4-10.2); Carbon Dioxide 14 mmol/L (22-29); Chloride 107 mmol/L (96-108); Estimated Glomerular Filt Rate 32; Glucose Random 185 mg/dL (60-115); Potassium 3.3 mmol/L (3.3-5.1); Sodium 139 mmol/L (135-145)
[2021-06-24 11:43] LABS: ~Lactic Acid-LAB USE ONLY 10.8 mmol/L (0.5-2.0)
[2021-06-24] MEDS: Piperacillin Sodium/Tazobactam 2.25 GM in 0.9 % Sodium Chloride 50 ML IV ×2 (12:28→18:12)
[2021-06-24] MEDS: Ferrous Sulfate 324 MG TABLET.DR PO (12:29)
[2021-06-24] MEDS: Metoprolol Succinate ER 50 MG TAB.ER.24H PO (12:29)
[2021-06-24] MEDS: Morphine Sulfate ER 15 MG TABLET.ER PO (12:29)
[2021-06-24 12:50] LABS: Reflex Lactate? 2 Y
[2021-06-24 13:41] LABS: ~Lactic Acid-LAB USE ONLY 5.9 mmol/L (0.5-2.0)
--- NOTE | 2021-06-24 14:31 | P.CONCC_ITS ---
History of Present Illness Data of Consult Service Date: 06/24/21 Requesting physician: Rosita Person Primary Care Provider: Chirs Murphy MD HPI I was asked by Dr. Person to take a look at Mrs. Caputo who has metastatic pancreatic cancer and is septic. The patient is a 66 year old female with metastatic pancreatic cancer, DM, hypertension, pancytopenia, protein calorie malnutrition, AFib, and chronic diarrhea. She ?was diagnosed with metastatic pancreatic cancer in November 2020 and is followed at [facility] by Dr. Edwards (GI) and Nicole Ching NP (Oncology).? Admitted [facility] in January with partial gastric outlet obstruction from duodenal distortion from pancreatic malignancy.? A duodenal stent placement was unsuccessful. ?She was transferred to [facility] and underwent EUS-gastrojejunostomy with placement of a 15mm metal stent. ?The patient is receiving chemotherapy with reportedly good CT response. The patient has had diarrhea for the past several months, dating back to before the diagnosis her pancreatic cancer.? The dose of pancreatic enzymes was inc reased with improvement in diarrhea.? Currently, the diarrhea is felt to be multifactorial:? Pancreatic insufficiency, chemotherapy-related, and possible SBO.? Colonoscopy did not show colitis. The patient was recently hospitalized at [facility] 06/18-06/20/21 for chronic diarrhea after receiving chemotherapy 06/09 for her metastatic? pancreatic cancer. ?Abd CT on 06/17 showed no change in appearance of the pancreatic head mass and liver metastasis, w no evidence of disease progression. ?Pneumatosis involving the ascending and proximal transverse colon was noted.? This was also present on her prior exams.? Given its presence of multiple exams this was thought likely a benign finding. At that admission, she had pancytopenia with an H&H of 8.7/27.9.? She had an anion gap metabolic acidosis with significant electrolyte abnormalities that were treated with IV fluids and electrolyte repletion.? She [place] [facility] [place] with a bicarbonate of 11, and creatinine 1.0. At [facility], she had labs done on Jun 21 which showed a very low bicarb level, so she was sent to [facility]. ?In the ED, she was having large amounts of water dark brown stool.? White count was 7, hemoglobin was 7, bicarb was 6, pH was 7.09, BUN/creatinine were 28/2.0, lactate was negative.? Stool was Hemoccult positive, COVID-19 was negative.? The patient did not look acutely ill. She was treated with fluids and a bicarbonate drip, and was admitted to Medicine with a diagnosis of bicarbonate wasting diarrhea as the primary cause of her metabolic acidosis.? pH improved to 7.35 and bicarb improved to 13.? She was on Eliquis for her AFib; because of the Hemoccult-positive stool, that was held.? She was also started on rifaximin. Yesterday evening the patient had rigors.? The patient was started on vancomycin and Zosyn. ?Blood cultures came back positive for Gram-positive rods, Gram-negative rods, and Gram-positive cocci.? Id and sensitivity still pending. The patient had another episode of rigors this morning,? She had an abdominal CT today; I reviewed the scan and Radiology with Dr. Gonzalez.? Most notably, the common bile duct is dilated and the gallbladder is distended.? There is a 3 cm gas-filled right hepatic lobe lesion,?? Abscess versus necrotic lesion.? Dr. Gonzalez recommended ERCP or MRCP, and percutaneous drainage of the lesion. On lab exam this morning, the patient's white count shot up to 50, and her hemoglobin dropped to 5.5.? BUN/creatinine were up to 32/1.5.? Bicarb was 19.? Lactic acid was 6.2.? Repeat at 1026 was 10.8.? Repeat at 13:05 was 5.9.? I went upstairs to see the patient with Dr. Person at about 1415. On my exam, other than being pale and suffering from marked hair loss and chronic illness, the patient was shockingly entirely well appearing (given all the above).? She is thoroughly nontoxic.? She is breathing easy with sat 97-99% on 2 L nasal cannula.? Heart rate 90s, blood pressure 124/62.? Mental status is 100% normal.? She talks easily and asked insightful questions.? I talked with her about her pain.? She said that she?s been having pain for months and is on Dilaudid.? As far as I can tell, no one has referred her for celiac plexus block. IMPRESSION: 1. Metastatic pancreatic cancer.? On chemotherapy. 2. Chronic diarrhea.? Being addressed medically. 3. Chronic severe metabolic acidosis.? 2? to above.? Being managed medically. 3. Acutely septic with polymicrobial bacteremia.? It.? Possible cholangitis, with liver abscess.? ? needs drainage and/or percut cholecystostomy.? Current abx are adequate 4. PATRICE. ?2? hypovolemia +/- sepsis. 5. Chronic pain 2? cancer.? Recommend a neurolytic celiac plexus block done as an outpatient.? [place] text Dr. Johnson from pain management/anesthesia. 6. Needs good, secure IV access.? terminal system operator PICC line not feasible at this time bec of bacteremia.? She?ll need a central line.? I can put one in for you. 7. Anemia.? Would transfuse to Hb > 7.? (Make sure she?s not bleeding.) The patient is safe to stay on IMC for now. Time (including extended rev of chart notes and hosp course summary, and mult d/w Dr. Person, Dr. Johnson, and with assistant property manager of OR services):? 105+ min. PMFSH Past Medical History Medical History Afib Bacteremia Diabetes HTN (hypertension) Pancreatic cancer metastasized to liver Pancytopenia Protein calorie malnutrition Surgical History Surgical History No pertinent past surgical history Social History Social History Household Members: None Housing: Jail Patient Tobacco Use Status: Never used Tobacco Use of substances other than those prescribed or required for medical reasons: No Currently Displaying Signs/Symptoms of Drug Intoxication Withdrawal: No Have you been hit, kicked, punched, or otherwise hurt by someone within the past year? If so, by whom?: No Do you feel safe in your current relationship?: No Current Relationship Is there a partner from a previous relationship who is making you feel unsafe now?: No Are you made to feel afraid or neglected: No Advance Directives: No Advance Directives Information Provided: No Do you have thoughts of harming others: None Do you have a plan to hurt others: No Plan Recently lost weight without trying: Yes How much weight loss: Unsure Eating poorly because of decreased appetite: Yes Nutrition screen score: 5 Nutrition Risks: No Nutritional Risk and On aspiration precautions Patient : No : No Poor oral hygiene: No service: No Current occupational status: disabled Meds Allergies Allergy/AdvReac Type Severity Reaction Status Date / Time No Known Allergies Allergy Verified 06/21/21 23:13 Active Medications: Current Medications Acetaminophen (Acetaminophen 325 Mg Tablet) 650 mg PO Q6H PRN PRN Reason: Pain, Mild (Pain Scale 1-3) Last Admin: 06/24/21 01:24 Dose: 650 mg Documented by: Albuterol Sulfate (Albuterol Sulfate 90 Mcg 8 Gm Inhaler) 2 puff INHALE Q4H PRN PRN Reason: Shortness of Breath/Wheezing Lipase/Protease/Amylase (Lipase/Prot/Amylase 24/76/120k 1 Cap Capsule.) 4 cap PO TID [facility] Last Admin: 06/24/21 12:29 Dose: Not Given Documented by: Atorvastatin Calcium (Atorvastatin Calcium 40 Mg Tablet) 40 mg PO DAILY [facility] Last Admin: 06/24/21 12:29 Dose: Not Given Documented by: Cholestyramine Resin (Cholestyramine (With Sugar) 4 Gm Powd.Pack) 4 gm PO BID PRN PRN Reason: Loose Stool Dextrose (Dextrose 50 % 25 Gm/50 Ml Vial) 25 gm IVPUSH Q15M PRN; Protocol PRN Reason: per Hypoglycemia Standing Ord. Dibucaine (Dibucaine 1 % Oint 28 Gm Tube) 1 appl TOPICAL Q6H PRN PRN Reason: Hemorrhoids Diphenoxylate HCl/Atropine (Diphenoxylate/Atrop 2.5/0.025 Tablet) 1 tab PO Q6H PRN PRN Reason: Loose Stool Ferrous Sulfate (Ferrous Sulfate 324 Mg Tablet.) 324 mg PO DAILY [facility] Last Admin: 06/24/21 12:29 Dose: 324 mg Documented by: Glucose (Glucose Gel 15 Gm Gel..Gram.) 15 gm PO Q15M PRN; Protocol PRN Reason: per Hypoglycemia Standing Ord. Hydromorphone HCl (Hydromorphone Hcl 1 Mg/Ml Syringe) 0.8 mg IVPUSH Q4H PRN; Protocol PRN Reason: severe pain Last Admin: 06/22/21 17:10 Dose: 0.8 mg Documented by: Sodium Chloride (Ns) 1,000 mls @ 100 mls/hr IVCONT .Q10H [facility] Last Admin: 06/24/21 05:10 Dose: 100 mls/hr Documented by: Vancomycin HCl 1,000 mg/ (Sodium Chloride) 270 mls @ 270 mls/hr IV Q24H [facility] Piperacillin Sod/Tazobactam (Sod 2.25 gm/ Sodium Chloride) 50 mls @ 100 mls/hr IV Q6H [facility] Last Infusion: 06/24/21 13:01 Dose: Infused Documented by: Insulin Human Lispro (Insulin Lispro 100 Unit/Ml 3 Ml Vial) 0 unit SUBCUT QIDACHS [facility]; Protocol Last Admin: 06/24/21 12:30 Dose: Not Given Documented by: Metoprolol Succinate (Metoprolol Succinate Er 50 Mg Tab.Er.24h) 50 mg PO BID [facility]; Protocol Last Admin: 06/24/21 12:29 Dose: 50 mg Documented by: Mirtazapine (Mirtazapine 7.5 Mg Tablet) 7.5 mg PO BEDTIME [facility] Last Admin: 06/23/21 22:38 Dose: Not Given Documented by: Morphine Sulfate (Morphine Sulfate Er 15 Mg Tablet.Er) 15 mg PO TID [facility] Last Admin: 06/24/21 12:29 Dose: 15 mg Documented by: Ondansetron HCl (Ondansetron Hcl 4 Mg/2 Ml Vial) 4 mg IVPUSH Q8H PRN PRN Reason: Nausea and Vomiting Pantoprazole Sodium (Pantoprazole Sodium 40 Mg/10 Ml Vial) 40 mg IVPUSH BID@0630,1630 [facility] Last Admin: 06/24/21 05:19 Dose: 40 mg Documented by: Pharmacy Consult (Consult Rx Vancomycin Dosing) 1 each MISCELLANE DAILY PRN PRN Reason: Consult order Rifaximin (Rifaximin 550 Mg Tablet) 550 mg PO TID [facility] Last Admin: 06/24/21 12:30 Dose: Not Given Documented by: Sodium Chloride (0.9 % Sodium Chloride Flush 3 Ml Syringe) 3 ml IVFLUSH QSHIFT [facility] Last Admin: 06/24/21 08:14 Dose: 3 ml Documented by: Thiamine HCl (Thiamine Hcl 100 Mg Tablet) 100 mg PO DAILY [facility] Last Admin: 06/24/21 12:30 Dose: Not Given Documented by: Vitamin D (Cholecalciferol (Vitamin D3) 25 Mcg Tablet) 25 mcg PO DAILY [facility] Last Admin: 06/24/21 12:29 Dose: Not Given Documented by: Home Medications Medication Instructions Recorded Confirmed Last Taken Type albuterol sulfate 90 mcg/actuation 1 - 2 puff INHALATION Q4-6H 06/21/21 06/21/21 Unknown History aerosol inhaler apixaban 5 mg tablet (Eliquis) 1 tab PO BID 06/21/21 06/21/21 Unknown History aspirin 81 mg tablet,delayed 1 tab PO DAILY 06/21/21 06/21/21 Unknown History release cholecalciferol (vitamin D3) 25 1 cap PO QAM 06/21/21 06/21/21 Unknown History mcg (1,000 unit) capsule (Vitamin D3) cholestyramine-aspartame 4 gram 1 packet PO BID PRN 06/21/21 06/21/21 Unknown History oral powder for susp in a packet (Cholestyramine Light) cyclosporine 0.05 % eye drops in a 1 drp OPHTHALMIC (EYE) BEDTIME 06/21/21 06/21/21 Unknown History dropperette (Restasis) diphenoxylate-atropine 2.5 1 tab PO Q6H PRN 06/21/21 06/21/21 Unknown History mg-0.025 mg tablet ferrous sulfate 325 mg (65 mg 325 mg PO DAILY 06/21/21 06/21/21 Unknown History iron) tablet (FeroSul) hydromorphone 4 mg tablet 4 mg PO NEEDED PRN 06/21/21 06/21/21 Unknown History lidocaine-prilocaine 2.5 %-2.5 % 1 appl TOPICAL NEEDED PRN 06/21/21 06/21/21 Unknown History topical cream losartan 100 mg tablet 1 tab PO DAILY 06/21/21 06/21/21 Unknown History magnesium L-lactate 84 mg 1 tab PO BID 06/21/21 06/21/21 Unknown History tablet,extended release metoprolol succinate 50 mg 1 tab PO BID 06/21/21 06/21/21 Unknown History tablet,extended release 24 hr mirtazapine 15 mg tablet 0.5 tab PO DAILY 06/21/21 06/21/21 Unknown History morphine 15 mg tablet,extended 1 tab PO TID 06/21/21 06/21/21 Unknown History release omeprazole 20 mg capsule,delayed 1 cap PO DAILY 06/21/21 06/21/21 Unknown History release ondansetron HCl 8 mg tablet 1 tab PO TID 06/21/21 06/21/21 Unknown History potassium chloride 10 mEq 1 tab PO BID 06/21/21 06/21/21 Unknown History capsule,extended release thiamine HCl (vitamin B1) 100 mg 1 tab PO DAILY 06/21/21 06/21/21 Unknown H istory tablet (Vitamin B-1) atorvastatin 40 mg tablet 40 mg PO DAILY 06/22/21 06/22/21 Unknown History [id number] 3 cap PO TID 06/22/21 06/22/21 Unknown History 36,000-114,000-180,000 unit capsule,delay rel (Creon) Physical Exam Vital Signs: Vital Signs: Last Vital Signs Temp 98.2 F 06/24/21 12:59 Pulse 92 06/24/21 12:59 Resp 18 06/24/21 12:59 BP 124/62 06/24/21 12:59 Pulse Ox 98 06/24/21 11:05 Body Mass Index 28.5 Results Labs CBC & Chem 7: 06/24/21 07:54 06/24/21 10:26 Labs: Short CBC 06/23/21 06/24/21 Range/Units 17:32 07:54 WBC 50.5 H* (4.8-10.8) X10*3/uL Hgb 8.2 L 5.5 L* D (12.0-16.0) g/dl Hct 25.6 L 14.9 L* D (37.0-47.0) % Plt Count 133 L (160-400) X10*3/uL BMP 06/23/21 06/24/21 06/24/21 19:32 02:32 07:54 Sodium 138 138 141 Potassium 3.3 D 2.5 L* D 3.4 D Chloride 106 106 107 Carbon Dioxide 16 L 19 L 19 L BUN 21 H 29 H 32 H Creatinine 0.84 1.36 1.56 H Calcium 7.4 L 6.7 L D 7.1 L 06/24/21 10:26 Sodium 139 Potassium 3.3 Chloride 107 Carbon Dioxide 14 L BUN 34 H Creatinine 1.63 H Calcium 6.8 L Microbiology Microbiology Results: Microbiology 06/22/21 16:51 Urine clean catch - Clean Catch Midstream Urine Culture - Final 06/23/21 18:51 Blood - Venous Blood Culture - Preliminary Prelim: GPR Gram Stain only Prelim: GPC Gram Stain only Prelim: GNR Gram Stain only 06/23/21 17:32 Blood - Venous Blood Culture - Preliminary Prelim: GPR Gram Stain only Prelim: GNR Gram Stain only Prelim: GPC Gram Stain only 06/22/21 16:26 Stool Stool Culture - Preliminary Normal so far. 06/21/21 18:45 Stool Stool Culture - Preliminary Culture in progress. 06/21/21 20:00 Blood - Venous Blood Culture - Preliminary No growth after 48 hours. 06/21/21 20:00 Blood - Venous Blood Culture - Preliminary No growth after 48 hours.
[2021-06-24 15:00] LABS: Alanine Aminotransferase 40 U/L (0-31); Albumin Level 2.2 g/dL (3.5-5.0); Alkaline Phosphatase 521 U/L (39-117); Aspartate Amino Transferase 241 U/L (5-31); Bilirubin Direct 1.1 mg/dL (0.0-0.5); Bilirubin Total 5.7 mg/dL (0.0-1.0); Total Protein 6.3 g/dL (6.5-8.0)
--- NOTE | 2021-06-24 15:17 | W.PM.IDCN ---
History of Present Illness Data of Consult Service Date: 06/24/21 Requesting physician: Rosita Person Primary Care Provider: Chris Murphy MD HPI Reason for consult: bacteremia She presents from shelter after having had abnormal labs with low bicarbonate. She felt weak and fatigued and complains of left sided pain She has had chills as well She was hospitalized at [facility] and diagnosed with pancreatic cancer Review of Systems Review of Systems: Yes all other systems are reviewed and are negative PMFSH Past Medical History Medical History (Updated 06/24/21 @ 15:20 by Marisa Jay MD) Afib Bacteremia Diabetes HTN (hypertension) Pancreatic cancer metastasized to liver Pancytopenia Protein calorie malnutrition Surgical History Surgical History No pertinent past surgical history Social History Social History Household Members: None Housing: [facility] Patient Tobacco Use Status: Never used Tobacco Use of substances other than those prescribed or required for medical reasons: No Currently Displaying Signs/Symptoms of Drug Intoxication Withdrawal: No Have you been hit, kicked, punched, or otherwise hurt by someone within the past year? If so, by whom?: No Do you feel safe in your current relationship?: No Current Relationship Is there a partner from a previous relationship who is making you feel unsafe now?: No Are you made to feel afraid or neglected: No Advance Directives: No Advance Directives Information Provided: No Do you have thoughts of harming others: None Do you have a plan to hurt others: No Plan Recently lost weight without trying: Yes How much weight loss: Unsure Eating poorly because of decreased appetite: Yes Nutrition screen score: 5 Nutrition Risks: No Nutritional Risk and On aspiration precautions Patient : No : No Poor oral hygiene: No service: No Current occupational status: disabled Meds Allergies Allergy/AdvReac Type Severity Reaction Status Date / Time No Known Allergies Allergy Verified 06/21/21 23:13 Active Medications: Current Medications Acetaminophen (Acetaminophen 325 Mg Tablet) 650 mg PO Q6H PRN PRN Reason: Pain, Mild (Pain Scale 1-3) Last Admin: 06/24/21 01:24 Dose: 650 mg Documented by: Albuterol Sulfate (Albuterol Sulfate 90 Mcg 8 Gm Inhaler) 2 puff INHALE Q4H PRN PRN Reason: Shortness of Breath/Wheezing Lipase/Protease/Amylase (Lipase/Prot/Amylase 24/76/120k 1 Cap Capsule.) 4 cap PO TID [facility] [place] Last Admin: 06/24/21 12:29 Dose: Not Given Documented by: Atorvastatin Calcium (Atorvastatin Calcium 40 Mg Tablet) 40 mg PO DAILY [facility] [place] Last Admin: 06/24/21 12:29 Dose: Not Given Documented by: Cholestyramine Resin (Cholestyramine (With Sugar) 4 Gm Powd.Pack) 4 gm PO BID PRN PRN Reason: Loose Stool Dextrose (Dextrose 50 % 25 Gm/50 Ml Vial) 25 gm IVPUSH Q15M PRN; Protocol PRN Reason: per Hypoglycemia Standing Ord. Dibucaine (Dibucaine 1 % Oint 28 Gm Tube) 1 appl TOPICAL Q6H PRN PRN Reason: Hemorrhoids Diphenoxylate HCl/Atropine (Diphenoxylate/Atrop 2.5/0.025 Tablet) 1 tab PO Q6H PRN PRN Reason: Loose Stool Ferrous Sulfate (Ferrous Sulfate 324 Mg Tablet.) 324 mg PO DAILY [facility] [place] Last Admin: 06/24/21 12:29 Dose: 324 mg Documented by: Glucose (Glucose Gel 15 Gm Gel..Gram.) 15 gm PO Q15M PRN; Protocol PRN Reason: per Hypoglycemia Standing Ord. Hydromorphone HCl (Hydromorphone Hcl 1 Mg/Ml Syringe) 0.8 mg IVPUSH Q4H PRN; Protocol PRN Reason: severe pain Last Admin: 06/22/21 17:10 Dose: 0.8 mg Documented by: Sodium Chloride (Ns) 1,000 mls @ 100 mls/hr IVCONT .Q10H [facility] [place] Last Admin: 06/24/21 05:10 Dose: 100 mls/hr Documented by: Vancomycin HCl 1,000 mg/ (Sodium Chloride) 270 mls @ 270 mls/hr IV Q24H [facility] [place] Piperacillin Sod/Tazobactam (Sod 2.25 gm/ Sodium Chloride) 50 mls @ 100 mls/hr IV Q6H [facility] [place] Last Infusion: 06/24/21 13:01 Dose: Infused Documented by: Insulin Human Lispro (Insulin Lispro 100 Unit/Ml 3 Ml Vial) 0 unit SUBCUT QIDACHS [facility] [place]; Protocol Last Admin: 06/24/21 12:30 Dose: Not Given Documented by: Metoprolol Succinate (Metoprolol Succinate Er 50 Mg Tab.Er.24h) 50 mg PO BID [facility] [place]; Protocol Last Admin: 06/24/21 12:29 Dose: 50 mg Documented by: Mirtazapine (Mirtazapine 7.5 Mg Tablet) 7.5 mg PO BEDTIME [facility] [place] Last Admin: 06/23/21 22:38 Dose: Not Given Documented by: Morphine Sulfate (Morphine Sulfate Er 15 Mg Tablet.Er) 15 mg PO TID [facility] [place] Last Admin: 06/24/21 12:29 Dose: 15 mg Documented by: Ondansetron HCl (Ondansetron Hcl 4 Mg/2 Ml Vial) 4 mg IVPUSH Q8H PRN PRN Reason: Nausea and Vomiting Pantoprazole Sodium (Pantoprazole Sodium 40 Mg/10 Ml Vial) 40 mg IVPUSH BID@0630,1630 [facility] [place] Last Admin: 06/24/21 05:19 Dose: 40 mg Documented by: Pharmacy Consult (Consult Rx Vancomycin Dosing) 1 each MISCELLANE DAILY PRN PRN Reason: Consult order Rifaximin (Rifaximin 550 Mg Tablet) 550 mg PO TID [facility] [place] Last Admin: 06/24/21 12:30 Dose: Not Given Documented by: Sodium Chloride (0.9 % Sodium Chloride Flush 3 Ml Syringe) 3 ml IVFLUSH QSHIFT [facility] [place] Last Admin: 06/24/21 08:14 Dose: 3 ml Documented by: Thiamine HCl (Thiamine Hcl 100 Mg Tablet) 100 mg PO DAILY [facility] [place] Last Admin: 06/24/21 12:30 Dose: Not Given Documented by: Vitamin D (Cholecalciferol (Vitamin D3) 25 Mcg Tablet) 25 mcg PO DAILY [facility] [place] Last Admin: 06/24/21 12:29 Dose: Not Given Documented by: Home Medications Medication Instructions Recorded Confirmed Last Taken Type albuterol sulfate 90 mcg/actuation 1 - 2 puff INHALATION Q4-6H 06/21/21 06/21/21 Unknown History aerosol inhaler apixaban 5 mg tablet (Eliquis) 1 tab PO BID 06/21/21 06/21/21 Unknown History aspirin 81 mg tablet,delayed 1 tab PO DAILY 06/21/21 06/21/21 Unknown History release cholecalciferol (vitamin D3) 25 1 cap PO QAM 06/21/21 06/21/21 Unknown History mcg (1,000 unit) capsule (Vitamin D3) cholestyramine-aspartame 4 gram 1 packet PO BID PRN 06/21/21 06/21/21 Unknown History oral powder for susp in a packet (Cholestyramine Light) cyclosporine 0.05 % eye drops in a 1 drp OPHTHALMIC (EYE) BEDTIME 06/21/21 06/21/21 Unknown History dropperette (Restasis) diphenoxylate-atropine 2.5 1 tab PO Q6H PRN 06/21/21 06/21/21 Unknown History mg-0.025 mg tablet ferrous sulfate 325 mg (65 mg 325 mg PO DAILY 06/21/21 06/21/21 Unknown History iron) tablet (FeroSul) hydromorphone 4 mg tablet 4 mg PO NEEDED PRN 06/21/21 06/21/21 Unknown History lidocaine-prilocaine 2.5 %-2.5 % 1 appl TOPICAL NEEDED PRN 06/21/21 06/21/21 Unknown History topical cream losartan 100 mg tablet 1 tab PO DAILY 06/21/21 06/21/21 Unknown History magnesium L-lactate 84 mg 1 tab PO BID 06/21/21 06/21/21 Unknown History tablet,extended release metoprolol succinate 50 mg 1 tab PO BID 06/21/21 06/21/21 Unknown History tablet,extended release 24 hr mirtazapine 15 mg tablet 0.5 tab PO DAILY 06/21/21 06/21/21 Unknown History morphine 15 mg tablet,extended 1 tab PO TID 06/21/21 06/21/21 Unknown History release omeprazole 20 mg capsule,delayed 1 cap PO DAILY 06/21/21 06/21/21 Unknown History release ondansetron HCl 8 mg tablet 1 tab PO TID 06/21/21 06/21/21 Unknown History potassium chloride 10 mEq 1 tab PO BID 06/21/21 06/21/21 Unknown History capsule,extended release thiamine HCl (vitamin B1) 100 mg 1 tab PO DAILY 06/21/21 06/21/21 Unknown History tablet (Vitamin B-1) atorvastatin 40 mg tablet 40 mg PO DAILY 06/22/21 06/22/21 Unknown History svisjg-[id number]-lzobdju 3 cap PO TID 06/22/21 06/22/21 Unknown History 36,000-114,000-180,000 unit capsule,delay rel (Creon) Physical Exam Vital Signs: Vital Signs: Last Vital Signs Temp 98.7 F 06/24/21 15:03 Pulse 86 06/24/21 15:03 Resp 18 06/24/21 15:03 BP 135/83 06/24/21 15:03 Pulse Ox 97 06/24/21 15:03 Body Mass Index 28.5 Const: General: ill appearing and tired appearing Eyes: General: appearance normal, both eyes and all related structures Pupils: Equal, round and reactive pupils present Resp: Effort & Inspection: normal respiratory effort Auscultation: clear to auscultation bilaterally Cardio: Rate: regular rate Rhythm: regular rhythm GI: Other: LLQ discomfort,left flank and back discomfort Neuro: Cranial nerves: Yes Equal, round and reactive pupils present Extrem: General: Yes normal to inspection Results Labs CBC & Chem 7: 06/24/21 07:54 06/24/21 10:26 Labs: Short CBC 06/23/21 06/24/21 Range/Units 17:32 07:54 WBC 50.5 H* (4.8-10.8) X10*3/uL Hgb 8.2 L 5.5 L* D (12.0-16.0) g/dl Hct 25.6 L 14.9 L* D (37.0-47.0) % Plt Count 133 L (160-400) X10*3/uL BMP 06/23/21 06/24/21 06/24/21 19:32 02:32 07:54 Sodium 138 138 141 Potassium 3.3 D 2.5 L* D 3.4 D Chloride 106 106 107 Carbon Dioxide 16 L 19 L 19 L BUN 21 H 29 H 32 H Creatinine 0.84 1.36 1.56 H Calcium 7.4 L 6.7 L D 7.1 L 06/24/21 10:26 Sodium 139 Potassium 3.3 Chloride 107 Carbon Dioxide 14 L BUN 34 H Creatinine 1.63 H Calcium 6.8 L Liver Function 06/24/21 Range/Units 10:26 Total Bilirubin 5.7 H (0.0-1.0) mg/dL Direct Bilirubin 1.1 H (0.0-0.5) mg/dL AST 241 H (5-31) U/L ALT 40 H (0-31) U/L Alkaline Phosphatase 521 H D (39-117) U/L Albumin 2.2 L D (3.5-5.0) g/dL Microbiology Microbiology Results: Microbiology 06/22/21 16:51 Urine clean catch - Clean Catch Midstream Urine Culture - Final 06/23/21 18:51 Blood - Venous Blood Culture - Preliminary Prelim: GPR Gram Stain only Prelim: GPC Gram Stain only Prelim: GNR Gram Stain only 06/23/21 17:32 Blood - Venous Blood Culture - Preliminary Prelim: GPR Gram Stain only Prelim: GNR Gram Stain only Prelim: GPC Gram Stain only 06/22/21 16:26 Stool Stool Culture - Preliminary Normal so far. 06/21/21 18:45 Stool Stool Culture - Preliminary Culture in progress. 06/21/21 20:00 Blood - Venous Blood Culture - Preliminary No growth after 48 hours. 06/21/21 20:00 Blood - Venous Blood Culture - Preliminary No growth after 48 hours. Assessment and Plan (1) Pancreatic cancer metastasized to liver: Status: Acute (2) Hypokalemia: Status: Acute (3) Metabolic acidosis: Status: Acute (4) Bacteremia: Status: Acute She has gram positive and gram negative bacteremia Possibilities include liver abscess/pancreatic necrosis She has had chemotherapy Would continue Vancomycin and Zosyn for now Would check MRI abdomen evaluate
--- NOTE | 2021-06-24 15:51 | PM.CNGS ---
History of Present Illness Consult details Consult date: 06/24/21 Requesting physician: Rosita Person Narrative: 66-year-old female patient presenting with complaints of abdominal pain in the left upper quadrant. Patient has a known history of pancreatic cancer being treated at [facility] chemotherapy. She is uncertain when she received her last dose of chemotherapy. Patient has known liver metastasis and obstructed duodenum. She underwent a endoscopic gastrojejunostomy with a stent placement to bypass the obstruction. Patient was noted on CT of the abdomen and pelvis today to have air in the liver. Surgical consultation requested for management of this collection. Patient was noted to have an elevated WBC to 50 K. Review of Systems Constitutional: Constitutional: Reports anorexia and Reports lethargy Cardiovascular: Cardiovascular: Denies chest pain, Reports edema, Denies irregular heart rhythm and Reports dyspnea Respiratory: Respiratory: Reports dyspnea and Denies wheezing Gastrointestinal: Gastrointestinal: Reports as per HPI and Reports abdominal pain Allergic/Immunologic: Allergic/Immunologic: Denies wheezing PMFSH Past Medical History Medical History Afib Bacteremia Diabetes HTN (hypertension) Pancreatic cancer metastasized to liver Pancytopenia Protein calorie malnutrition Surgical History Surgical History No pertinent past surgical history Social History Social History Household Members: None Housing: [facility]iary Patient Tobacco Use Status: Never used Tobacco Use of substances other than those prescribed or required for medical reasons: No Currently Displaying Signs/Symptoms of Drug Intoxication Withdrawal: No Have you been hit, kicked, punched, or otherwise hurt by someone within the past year? If so, by whom?: No Do you feel safe in your current relationship?: No Current Relationship Is there a partner from a previous relationship who is making you feel unsafe now?: No Are you made to feel afraid or neglected: No Advance Directives: No Advance Directives Information Provided: No Do you have thoughts of harming others: None Do you have a plan to hurt others: No Plan Recently lost weight without trying: Yes How much weight loss: Unsure Eating poorly because of decreased appetite: Yes Nutrition screen score: 5 Nutrition Risks: No Nutritional Risk and On aspiration precautions Patient : No : No Poor oral hygiene: No service: No Current occupational status: disabled Meds Allergies Allergy/AdvReac Type Severity Reaction Status Date / Time No Known Allergies Allergy Verified 06/21/21 23:13 Active Medications: Current Medications Acetaminophen (Acetaminophen 325 Mg Tablet) 650 mg PO Q6H PRN PRN Reason: Pain, Mild (Pain Scale 1-3) Last Admin: 06/24/21 01:24 Dose: 650 mg Documented by: Albuterol Sulfate (Albuterol Sulfate 90 Mcg 8 Gm Inhaler) 2 puff INHALE Q4H PRN PRN Reason: Shortness of Breath/Wheezing Lipase/Protease/Amylase (Lipase/Prot/Amylase 24/76/120k 1 Cap Capsule.) 4 cap PO TID [facility] Last Admin: 06/24/21 15:27 Dose: Not Given Documented by: Atorvastatin Calcium (Atorvastatin Calcium 40 Mg Tablet) 40 mg PO DAILY [facility] Last Admin: 06/24/21 12:29 Dose: Not Given Documented by: Cholestyramine Resin (Cholestyramine (With Sugar) 4 Gm Powd.Pack) 4 gm PO BID PRN PRN Reason: Loose Stool Dextrose (Dextrose 50 % 25 Gm/50 Ml Vial) 25 gm IVPUSH Q15M PRN; Protocol PRN Reason: per Hypoglycemia Standing Ord. Dibucaine (Dibucaine 1 % Oint 28 Gm Tube) 1 appl TOPICAL Q6H PRN PRN Reason: Hemorrhoids Diphenoxylate HCl/Atropine (Diphenoxylate/Atrop 2.5/0.025 Tablet) 1 tab PO Q6H PRN PRN Reason: Loose Stool Ferrous Sulfate (Ferrous Sulfate 324 Mg Tablet.) 324 mg PO DAILY [facility] Last Admin: 06/24/21 12:29 Dose: 324 mg Documented by: Glucose (Glucose Gel 15 Gm Gel..Gram.) 15 gm PO Q15M PRN; Protocol PRN Reason: per Hypoglycemia Standing Ord. Hydromorphone HCl (Hydromorphone Hcl 1 Mg/Ml Syringe) 0.8 mg IVPUSH Q4H PRN; Protocol PRN Reason: severe pain Last Admin: 06/22/21 17:10 Dose: 0.8 mg Documented by: Sodium Chloride (Ns) 1,000 mls @ 100 mls/hr IVCONT .Q10H [facility] Last Admin: 06/24/21 15:37 Dose: Not Given Documented by: Vancomycin HCl 1,000 mg/ (Sodium Chloride) 270 mls @ 270 mls/hr IV Q24H [facility] Piperacillin Sod/Tazobactam (Sod 2.25 gm/ Sodium Chloride) 50 mls @ 100 mls/hr IV Q6H [facility] Last Infusion: 06/24/21 13:01 Dose: Infused Documented by: Insulin Human Lispro (Insulin Lispro 100 Unit/Ml 3 Ml Vial) 0 unit SUBCUT QIDACHS [facility]; Protocol Last Admin: 06/24/21 12:30 Dose: Not Given Documented by: Metoprolol Succinate (Metoprolol Succinate Er 50 Mg Tab.Er.24h) 50 mg PO BID [facility]; Protocol Last Admin: 06/24/21 12:29 Dose: 50 mg Documented by: Mirtazapine (Mirtazapine 7.5 Mg Tablet) 7.5 mg PO BEDTIME [facility] Last Admin: 06/23/21 22:38 Dose: Not Given Documented by: Morphine Sulfate (Morphine Sulfate Er 15 Mg Tablet.Er) 15 mg PO TID [facility] Last Admin: 06/24/21 15:36 Dose: Not Given Documented by: Ondansetron HCl (Ondansetron Hcl 4 Mg/2 Ml Vial) 4 mg IVPUSH Q8H PRN PRN Reason: Nausea and Vomiting Pantoprazole Sodium (Pantoprazole Sodium 40 Mg/10 Ml Vial) 40 mg IVPUSH BID@0630,1630 [facility] Last Admin: 06/24/21 05:19 Dose: 40 mg Documented by: Pharmacy Consult (Consult Rx Vancomycin Dosing) 1 each MISCELLANE DAILY PRN PRN Reason: Consult order Rifaximin (Rifaximin 550 Mg Tablet) 550 mg PO TID [facility] Last Admin: 06/24/21 15:29 Dose: Not Given Documented by: Sodium Chloride (0.9 % Sodium Chloride Flush 3 Ml Syringe) 3 ml IVFLUSH QSHIFT [facility] Last Admin: 06/24/21 15:37 Dose: Not Given Documented by: Thiamine HCl (Thiamine Hcl 100 Mg Tablet) 100 mg PO DAILY [facility] Last Admin: 06/24/21 12:30 Dose: Not Given Documented by: Vitamin D (Cholecalciferol (Vitamin D3) 25 Mcg Tablet) 25 mcg PO DAILY [facility] Last Admin: 06/24/21 12:29 Dose: Not Given Documented by: Home Medications Medication Instructions Recorded Confirmed Last Taken Type albuterol sulfate 90 mcg/actuation 1 - 2 puff INHALATION Q4-6H 06/21/21 06/21/21 Unknown History aerosol inhaler apixaban 5 mg tablet (Eliquis) 1 tab PO BID 06/21/21 06/21/21 Unknown History aspirin 81 mg tablet,delayed 1 tab PO DAILY 06/21/21 06/21/21 Unknown History release cholecalciferol (vitamin D3) 25 1 cap PO QAM 06/21/21 06/21/21 Unknown History mcg (1,000 unit) capsule (Vitamin D3) cholestyramine-aspartame 4 gram 1 packet PO BID PRN 06/21/21 06/21/21 Unknown History oral powder for susp in a packet (Cholestyramine Light) cyclosporine 0.05 % eye drops in a 1 drp OPHTHALMIC (EYE) BEDTIME 06/21/21 06/21/21 Unknown History dropperette (Restasis) diphenoxylate-atropine 2.5 1 tab PO Q6H PRN 06/21/21 06/21/21 Unknown History mg-0.025 mg tablet ferrous sulfate 325 mg (65 mg 325 mg PO DAILY 06/21/21 06/21/21 Unknown History iron) tablet (FeroSul) hydromorphone 4 mg tablet 4 mg PO NEEDED PRN 06/21/21 06/21/21 Unknown History lidocaine-prilocaine 2.5 %-2.5 % 1 appl TOPICAL NEEDED PRN 06/21/21 06/21/21 Unknown History topical cream losartan 100 mg tablet 1 tab PO DAILY 06/21/21 06/21/21 Unknown History magnesium L-lactate 84 mg 1 tab PO BID 06/21/21 06/21/21 Unknown History tablet,extended release metoprolol succinate 50 mg 1 tab PO BID 06/21/21 06/21/21 Unknown History tablet,extended release 24 hr mirtazapine 15 mg tablet 0.5 tab PO DAILY 06/21/21 06/21/21 Unknown History morphine 15 mg tablet,extended 1 tab PO TID 06/21/21 06/21/21 Unknown History release omeprazole 20 mg capsule,delayed 1 cap PO DAILY 06/21/21 06/21/21 Unknown History release ondansetron HCl 8 mg tablet 1 tab PO TID 06/21/21 06/21/21 Unknown History potassium chloride 10 mEq 1 tab PO BID 06/21/21 06/21/21 Unknown History capsule,extended release thiamine HCl (vitamin B1) 100 mg 1 tab PO DAILY 06/21/21 06/21/21 Unknown History tablet (Vitamin B-1) atorvastatin 40 mg tablet 40 mg PO DAILY 06/22/21 06/22/21 Unknown History ssvyrh-diawfxtn-dyjpnhy 3 cap PO TID 06/22/21 06/22/21 Unknown History 36,000-114,000-180,000 unit capsule,delay rel (Creon) Physical Exam Vital Signs: Vital Signs: Last Vital Signs Temp 98.7 F 06/24/21 15:03 Pulse 86 06/24/21 15:03 Resp 18 06/24/21 15:03 BP 135/83 06/24/21 15:03 Pulse Ox 97 06/24/21 15:03 Body Mass Index 28.5 Const: General: acute distress and ill appearing Orientation/consciousness: patient oriented x3 Eyes: Sclerae: scleral abnormal (Scleral icterus) EOM: EOMs intact bilaterally GI: Other: Tender in the left upper quadrant without rebound, guarding, or rigidity. No tenderness in the right upper quadrant or right lower quadrant. Rectal Exam - Female: deferred Skin: Other: Jaundice, no rash Neuro: General: patient oriented x3 Extrem: General: Yes no clubbing, cyanosis or edema Results Labs Result diagrams: 06/24/21 07:54 06/24/21 10:26 Labs: Abnormal lab results 06/22/21 06/23/21 06/23/21 Range/Units 07:34 16:38 17:27 WBC (4.8-10.8) X10*3/uL RBC (4.20-5.50) X10*6/uL Hgb (12.0-16.0) g/dl Hct (37.0-47.0) % MCHC (31.0-35.0) g/dl RDW (11.0-16.0) % Plt Count (160-400) X10*3/uL Absolute Nucleated RBC (0.0-0.012) X10*3/uL Nucleated RBC % (auto) (0.0-0.2) /100WBC ABG pH at Pt Temp 7.57 H (7.35-7.45) ABG pH (Temp Correct) 7.57 H (7.35-7.45) ABG pCO2 at Pt Temp 19 L* (32-45) mmHg ABG pCO2 (Temp Corrct 19 L* (32-45) mmHg ABG pO2 at Pt Temp 45 L* (83-108) mmHg ABG pO2 (Temp Correct 44 L* (83-108) ABG HCO3 17 L (22-26) mmol/L Potassium (3.3-5.1) mmol/L Carbon Dioxide (22-29) mmol/L Anion Gap (12-20) BUN (9-16) mg/dL Creatinine (0.5-1.4) mg/dL POC Glucose 124 H (60-115) mg/dL Random Glucose (60-115) mg/dL Lactic Acid (0.5-2.0) mmol/L Lactic Acid Fup @ 2Hr (0.5-2.0) mmol/L Lactic Acid Fup @ 4Hr (0.5-2.0) mmol/L Calcium (8.4-10.2) mg/dL Magnesium (1.6-2.6) mg/dL Total Bilirubin (0.0-1.0) mg/dL Direct Bilirubin (0.0-0.5) mg/dL AST (5-31) U/L ALT (0-31) U/L Alkaline Phosphatase (39-117) U/L Total Protein (6.5-8.0) g/dL Albumin (3.5-5.0) g/dL Crossmatch See Detail 06/23/21 06/23/21 06/23/21 Range/Units 17:32 18:51 19:32 WBC (4.8-10.8) X10*3/uL RBC (4.20-5.50) X10*6/uL Hgb 8.2 L (12.0-16.0) g/dl Hct 25.6 L (37.0-47.0) % MCHC (31.0-35.0) g/dl RDW (11.0-16.0) % Plt Count (160-400) X10*3/uL Absolute Nucleated RBC (0.0-0.012) X10*3/uL Nucleated RBC % (auto) (0.0-0.2) /100WBC ABG pH at Pt Temp (7.35-7.45) ABG pH (Temp Correct) (7.35-7.45) ABG pCO2 at Pt Temp (32-45) mmHg ABG pCO2 (Temp Corrct (32-45) mmHg ABG pO2 at Pt Temp (83-108) mmHg ABG pO2 (Temp Correct (83-108) ABG HCO3 (22-26) mmol/L Potassium (3.3-5.1) mmol/L Carbon Dioxide 16 L (22-29) mmol/L Anion Gap (12-20) BUN 21 H (9-16) mg/dL Creatinine (0.5-1.4) mg/dL POC Glucose (60-115) mg/dL Random Glucose 178 H (60-115) mg/dL Lactic Acid 7.1 H* (0.5-2.0) mmol/L Lactic Acid Fup @ 2Hr (0.5-2.0) mmol/L Lactic Acid Fup @ 4Hr (0.5-2.0) mmol/L Calcium 7.4 L (8.4-10.2) mg/dL Magnesium (1.6-2.6) mg/dL Total Bilirubin (0.0-1.0) mg/dL Direct Bilirubin (0.0-0.5) mg/dL AST (5-31) U/L ALT (0-31) U/L Alkaline Phosphatase (39-117) U/L Total Protein (6.5-8.0) g/dL Albumin (3.5-5.0) g/dL Crossmatch 06/23/21 06/23/21 06/23/21 Range/Units 19:32 20:16 21:04 WBC (4.8-10.8) X10*3/uL RBC (4.20-5.50) X10*6/uL Hgb (12.0-16.0) g/dl Hct (37.0-47.0) % MCHC (31.0-35.0) g/dl RDW (11.0-16.0) % Plt Count (160-400) X10*3/uL Absolute Nucleated RBC (0.0-0.012) X10*3/uL Nucleated RBC % (auto) (0.0-0.2) /100WBC ABG pH at Pt Temp (7.35-7.45) ABG pH (Temp Correct) (7.35-7.45) ABG pCO2 at Pt Temp (32-45) mmHg ABG pCO2 (Temp Corrct (32-45) mmHg ABG pO2 at Pt Temp (83-108) mmHg ABG pO2 (Temp Correct (83-108) ABG HCO3 (22-26) mmol/L Potassium (3.3-5.1) mmol/L Carbon Dioxide (22-29) mmol/L Anion Gap (12-20) BUN (9-16) mg/dL Creatinine (0.5-1.4) mg/dL POC Glucose 157 H (60-115) mg/dL Random Glucose (60-115) mg/dL Lactic Acid (0.5-2.0) mmol/L Lactic Acid Fup @ 2Hr 7.5 H* (0.5-2.0) mmol/L Lactic Acid Fup @ 4Hr (0.5-2.0) mmol/L Calcium (8.4-10.2) mg/dL Magnesium 1.5 L (1.6-2.6) mg/dL Total Bilirubin (0.0-1.0) mg/dL Direct Bilirubin (0.0-0.5) mg/dL AST (5-31) U/L ALT (0-31) U/L Alkaline Phosphatase (39-117) U/L Total Protein (6.5-8.0) g/dL Albumin (3.5-5.0) g/dL Crossmatch 06/23/21 06/24/21 06/24/21 Range/Units 23:14 02:32 07:25 WBC (4.8-10.8) X10*3/uL RBC (4.20-5.50) X10*6/uL Hgb (12.0-16.0) g/dl Hct (37.0-47.0) % MCHC (31.0-35.0) g/dl RDW (11.0-16.0) % Plt Count (160-400) X10*3/uL Absolute Nucleated RBC (0.0-0.012) X10*3/uL Nucleated RBC % (auto) (0.0-0.2) /100WBC ABG pH at Pt Temp (7.35-7.45) ABG pH (Temp Correct) (7.35-7.45) ABG pCO2 at Pt Temp (32-45) mmHg ABG pCO2 (Temp Corrct (32-45) mmHg ABG pO2 at Pt Temp (83-108) mmHg ABG pO2 (Temp Correct (83-108) ABG HCO3 (22-26) mmol/L Potassium 2.5 L* D (3.3-5.1) mmol/L Carbon Dioxide 19 L (22-29) mmol/L Anion Gap (12-20) BUN 29 H (9-16) mg/dL Creatinine (0.5-1.4) mg/dL POC Glucose 235 H (60-115) mg/dL Random Glucose 236 H (60-115) mg/dL Lactic Acid (0.5-2.0) mmol/L Lactic Acid Fup @ 2Hr (0.5-2.0) mmol/L Lactic Acid Fup @ 4Hr 7.7 H* (0.5-2.0) mmol/L Calcium 6.7 L D (8.4-10.2) mg/dL Magnesium 1.5 L (1.6-2.6) mg/dL Total Bilirubin (0.0-1.0) mg/dL Direct Bilirubin (0.0-0.5) mg/dL AST (5-31) U/L ALT (0-31) U/L Alkaline Phosphatase (39-117) U/L Total Protein (6.5-8.0) g/dL Albumin (3.5-5.0) g/dL Crossmatch 06/24/21 06/24/21 06/24/21 Range/Units 07:54 07:54 07:54 WBC 50.5 H* (4.8-10.8) X10*3/uL RBC 1.73 L D (4.20-5.50) X10*6/uL Hgb 5.5 L* D (12.0-16.0) g/dl Hct 14.9 L* D (37.0-47.0) % MCHC 36.9 H (31.0-35.0) g/dl RDW 20.7 H (11.0-16.0) % Plt Count 133 L (160-400) X10*3/uL Absolute Nucleated RBC 1.470 H (0.0-0.012) X10*3/uL Nucleated RBC % (auto) 2.9 H (0.0-0.2) /100WBC ABG pH at Pt Temp (7.35-7.45) ABG pH (Temp Correct) (7.35-7.45) ABG pCO2 at Pt Temp (32-45) mmHg ABG pCO2 (Temp Corrct (32-45) mmHg ABG pO2 at Pt Temp (83-108) mmHg ABG pO2 (Temp Correct (83-108) ABG HCO3 (22-26) mmol/L Potassium (3.3-5.1) mmol/L Carbon Dioxide 19 L (22-29) mmol/L Anion Gap (12-20) BUN 32 H (9-16) mg/dL Creatinine 1.56 H (0.5-1.4) mg/dL POC Glucose (60-115) mg/dL Random Glucose 242 H (60-115) mg/dL Lactic Acid 6.2 H* (0.5-2.0) mmol/L Lactic Acid Fup @ 2Hr (0.5-2.0) mmol/L Lactic Acid Fup @ 4Hr (0.5-2.0) mmol/L Calcium 7.1 L (8.4-10.2) mg/dL Magnesium (1.6-2.6) mg/dL Total Bilirubin (0.0-1.0) mg/dL Direct Bilirubin (0.0-0.5) mg/dL AST (5-31) U/L ALT (0-31) U/L Alkaline Phosphatase (39-117) U/L Total Protein (6.5-8.0) g/dL Albumin (3.5-5.0) g/dL Crossmatch 06/24/21 06/24/21 06/24/21 Range/Units 09:33 10:26 10:26 WBC (4.8-10.8) X10*3/uL RBC (4.20-5.50) X10*6/uL Hgb (12.0-16.0) g/dl Hct (37.0-47.0) % MCHC (31.0-35.0) g/dl RDW (11.0-16.0) % Plt Count (160-400) X10*3/uL Absolute Nucleated RBC (0.0-0.012) X10*3/uL Nucleated RBC % (auto) (0.0-0.2) /100WBC ABG pH at Pt Temp (7.35-7.45) ABG pH (Temp Correct) (7.35-7.45) ABG pCO2 at Pt Temp (32-45) mmHg ABG pCO2 (Temp Corrct (32-45) mmHg ABG pO2 at Pt Temp (83-108) mmHg ABG pO2 (Temp Correct (83-108) ABG HCO3 (22-26) mmol/L Potassium (3.3-5.1) mmol/L Carbon Dioxide 14 L (22-29) mmol/L Anion Gap 21 H (12-20) BUN 34 H (9-16) mg/dL Creatinine 1.63 H (0.5-1.4) mg/dL POC Glucose (60-115) mg/dL Random Glucose 185 H (60-115) mg/dL Lactic Acid (0.5-2.0) mmol/L Lactic Acid Fup @ 2Hr 10.8 H* (0.5-2.0) mmol/L Lactic Acid Fup @ 4Hr (0.5-2.0) mmol/L Calcium 6.8 L (8.4-10.2) mg/dL Magnesium (1.6-2.6) mg/dL Total Bilirubin 5.7 H (0.0-1.0) mg/dL Direct Bilirubin 1.1 H (0.0-0.5) mg/dL AST 241 H (5-31) U/L ALT 40 H (0-31) U/L Alkaline Phosphatase 521 H D (39-117) U/L Total Protein 6.3 L (6.5-8.0) g/dL Albumin 2.2 L D (3.5-5.0) g/dL Crossmatch See Detail 06/24/21 06/24/21 Range/Units 11:20 13:05 WBC (4.8-10.8) X10*3/uL RBC (4.20-5.50) X10*6/uL Hgb (12.0-16.0) g/dl Hct (37.0-47.0) % MCHC (31.0-35.0) g/dl RDW (11.0-16.0) % Plt Count (160-400) X10*3/uL Absolute Nucleated RBC (0.0-0.012) X10*3/uL Nucleated RBC % (auto) (0.0-0.2) /100WBC ABG pH at Pt Temp (7.35-7.45) ABG pH (Temp Correct) (7.35-7.45) ABG pCO2 at Pt Temp (32-45) mmHg ABG pCO2 (Temp Corrct (32-45) mmHg ABG pO2 at Pt Temp (83-108) mmHg ABG pO2 (Temp Correct (83-108) ABG HCO3 (22-26) mmol/L Potassium (3.3-5.1) mmol/L Carbon Dioxide (22-29) mmol/L Anion Gap (12-20) BUN (9-16) mg/dL Creatinine (0.5-1.4) mg/dL POC Glucose 187 H (60-115) mg/dL Random Glucose (60-115) mg/dL Lactic Acid (0.5-2.0) mmol/L Lactic Acid Fup @ 2Hr (0.5-2.0) mmol/L Lactic Acid Fup @ 4Hr 5.9 H* (0.5-2.0) mmol/L Calcium (8.4-10.2) mg/dL Magnesium (1.6-2.6) mg/dL Total Bilirubin (0.0-1.0) mg/dL Direct Bilirubin (0.0-0.5) mg/dL AST (5-31) U/L ALT (0-31) U/L Alkaline Phosphatase (39-117) U/L Total Protein (6.5-8.0) g/dL Albumin (3.5-5.0) g/dL Crossmatch Short CBC 06/23/21 06/24/21 Range/Units 17:32 07:54 WBC 50.5 H* (4.8-10.8) X10*3/uL Hgb 8.2 L 5.5 L* D (12.0-16.0) g/dl Hct 25.6 L 14.9 L* D (37.0-47.0) % Plt Count 133 L (160-400) X10*3/uL BMP 06/23/21 06/24/21 06/24/21 19:32 02:32 07:54 Sodium 138 138 141 Potassium 3.3 D 2.5 L* D 3.4 D Chloride 106 106 107 Carbon Dioxide 16 L 19 L 19 L BUN 21 H 29 H 32 H Creatinine 0.84 1.36 1.56 H Calcium 7.4 L 6.7 L D 7.1 L 06/24/21 10:26 Sodium 139 Potassium 3.3 Chloride 107 Carbon Dioxide 14 L BUN 34 H Creatinine 1.63 H Calcium 6.8 L Liver Function 06/24/21 Range/Units 10:26 Total Bilirubin 5.7 H (0.0-1.0) mg/dL Direct Bilirubin 1.1 H (0.0-0.5) mg/dL AST 241 H (5-31) U/L ALT 40 H (0-31) U/L Alkaline Phosphatase 521 H D (39-117) U/L Albumin 2.2 L D (3.5-5.0) g/dL Urine 06/22/21 Range/Units 16:26 Urine Color YELLOW Urine Appearance HAZY Urine pH 6.0 (5.0-8.0) Ur Specific Ina 1.020 (1.005-1.025) Urine Protein TRACE (NEG-TRACE) MG/DL Urine Glucose (UA) NEG (NEG) MG/DL All other labs normal. Assessment and Plan (1) Pancreatic cancer metastasized to liver: Status: Acute (2) Bacteremia: Status: Acute Patient with markedly elevated WBC and bacteremia with findings of dilated common bile duct, liver air collection in the right lobe, and previous stent placement for a endoscopic gastrojejunostomy. Potential source of infection includes liver abscess, cholangitis, intra-abdominal abscess due to stent placement. Patient is most symptomatic in the left upper quadrant and is asymptomatic in the right upper quadrant. Suggest IR aspiration of liver collection to evaluate for abscess. ERCP with biliary drainage may also be required. No surgical intervention is recommended given the patient's poor overall prognosis. Procedures Date of Service Date of Service: 06/24/21
[2021-06-24 16:32] LABS: Glucose, Whole Blood 189 mg/dL (60-115)
[2021-06-24 18:15] LABS: INTERNATIONAL NORM RATIO 3.9 (0.9-1.1)
[2021-06-24 18:17] LABS: Partial Thromboplastin Time 41.1 SEC (24.1-38.0)
[2021-06-24 18:34] LABS: Hemoglobin 6.9 g/dl (12.0-16.0)
[2021-06-24 18:36] LABS: Hematocrit 19.4 % (37.0-47.0)
[2021-06-24 21:15] LABS: Glucose, Whole Blood 168 mg/dL (60-115)
[2021-06-24] MEDS: vancomycin HCL 1,000 MG in 0.9 % Sodium Chloride 250 ML 270 MG IV (21:50)
[2021-06-24] MEDS: Phytonadione (Vit K1) 10 MG in 0.9 % Sodium Chloride 50 ML 51 MG IV (22:14)
[2021-06-25] VITALS (17 sets, daily range): BP systolic 101–157; BP diastolic 54–79; PULSE 58–75; RESP 14–20; TEMP 35.8–37.1; O2SAT 93–100
[2021-06-25] MEDS: Piperacillin Sodium/Tazobactam 2.25 GM in 0.9 % Sodium Chloride 50 ML IV ×4 (00:55→18:20)
[2021-06-25] MEDS: 0.9 % Sodium Chloride Flush 3 ML SYRINGE IVFLUSH ×2 (00:55→08:21)
[2021-06-25] MEDS: Pantoprazole Sodium 40 MG/10 ML VIAL IVPUSH ×2 (06:24→18:21)
[2021-06-25 06:59] LABS: Hematocrit 26.9 % (37.0-47.0); Hemoglobin 9.3 g/dl (12.0-16.0); Mean Corpuscular HGB Conc 34.6 g/dl (31.0-35.0); Mean Corpuscular Hemoglobin 29.7 pg (27.0-33.0); Mean Corpuscular Volume 85.9 fL (80.0-98.0); NRBC Pct Auto 0.8 /100WBC (0.0-0.2); Red Blood Count 3.13 X10*6/uL (4.20-5.50); Red Cell Distribution Width 15.8 % (11.0-16.0)
[2021-06-25 07:05] LABS: Alanine Aminotransferase 32 U/L (0-31); Albumin Level 2.3 g/dL (3.5-5.0); Bilirubin Total 4.6 mg/dL (0.0-1.0); Creatinine Clr Calc Pharmacy 28.3; Estimated Glomerular Filt Rate 29; Glucose Random 132 mg/dL (60-115); Magnesium 2.4 mg/dL (1.6-2.6)
[2021-06-25 07:38] LABS: Glucose, Whole Blood 124 mg/dL (60-115)
[2021-06-25 07:40] LABS: Platelet Count 89 X10*3/uL (160-400)
[2021-06-25 07:43] LABS: Procalcitonin 242.02 ng/mL
[2021-06-25 07:52] LABS: White Blood Count 38.3 X10*3/uL (4.8-10.8)
[2021-06-25 07:55] LABS: Alkaline Phosphatase 204 U/L (39-117); Anion Gap 15 (12-20); Aspartate Amino Transferase 160 U/L (5-31); Calcium 7.6 mg/dL (8.4-10.2); Carbon Dioxide 24 mmol/L (22-29); Chloride 107 mmol/L (96-108); Potassium 2.5 mmol/L (3.3-5.1); Sodium 143 mmol/L (135-145); Total Protein 4.9 g/dL (6.5-8.0)
[2021-06-25] MEDS: rifAXIMin 550 MG TABLET PO ×2 (08:20→20:45)
[2021-06-25] MEDS: Atorvastatin Calcium 40 MG TABLET PO (08:20)
[2021-06-25] MEDS: Cholecalciferol (Vitamin D3) 25 MCG TABLET PO (08:20)
[2021-06-25] MEDS: Thiamine HCL 100 MG TABLET PO (08:20)
[2021-06-25] MEDS: Potassium Chloride/H20 10 MEQ/100 ML PIGGYBACK 100 MEQ IV ×2 (08:20→09:29)
[2021-06-25] MEDS: Metoprolol Succinate ER 50 MG TAB.ER.24H PO ×2 (08:21→20:46)
[2021-06-25] MEDS: Morphine Sulfate ER 15 MG TABLET.ER PO ×2 (08:22→18:20)
--- NOTE | 2021-06-25 09:26 | MHC.CDI.CONC ---
CDI Concurrent Query Documentation Clarification: PHYSICIAN'S DOCUMENTATION REQUEST Date of Query: 06/25/21925 Patient Name: Uzma Caputo Admit Date: 06/24/21 Dear Doctor, A review of the medical record indicates additional documentation may be needed. Please review below and update the documentation accordingly. Risk Factors/Clinical Indicators/Treatments Notes 06/24 - protein calorie malnutrition. Chronically ill, not eating, weakness. Stage IV pancreatic cancer w mets to liver. Active chemotherapy. Albumin 2.2 Total protein 6.3 Clinical Characteristic Non-Severe (2 or more criteria present) Severe (2 or more criteria present) Non-Severe (2 or more criteria present) Severe (2 or more criteria present) Energy Intake <75% for >7 days <=50% for >=5 days <75% for >=1 month <=75% for >=1 month Weight Loss 1 week 1 ? 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 Protein calorie malnutrition, mild, moderate or Failure to thrive Cachectic etc. Other (please specify) Unable to determine Use of terms such as suspected, likely, concern for, or probable (associated with a specific diagnosis that is being evaluated, monitored, or treated as if it exists) are acceptable and can be coded in the inpatient setting, when documented at the time of discharge. Thank you, Chela Frye [facility], CDIS Extension: [phone] Please use your independent medical judgment in providing your response. THIS QUERY IS PART OF THE PERMANENT MEDICAL RECORD Provider Response: Mild Protein-Calorie Malnutrition
[2021-06-25 09:39] LABS: Blood Urea Nitrogen 45 mg/dL (9-16)
--- NOTE | 2021-06-25 10:02 | MHC.CM.PN ---
Female 66 DX Metabolic Acidosis DP return to [facility] via BLS. Yesterday afternoon t/w received a call from Dr Person. He requested information on Hospitals that are covered by the pts insurance, [facility]. The info was obtained from [facility] transitions. The info was passed on to Dr Person via [employer] Text. No return message was received.
[2021-06-25 10:04] LABS: MRSA Nasal PCR NEGATIVE (Negative); SA Nasal PCR POSITIVE (Negative)
[2021-06-25] MEDS: Potassium Chloride/H20 40 MEQ/100 ML PIGGYBACK 25 MEQ IV (10:33)
[2021-06-25] MEDS: 0.9 % Sodium Chloride 1,000 ML 100 ML IVCONT ×2 (10:34→18:20)
[2021-06-25 11:06] LABS: Glucose, Whole Blood 122 mg/dL (60-115)
--- NOTE | 2021-06-25 12:06 | PC.NURSE ---
Patient sent via ambulance for outpatient procedure at [facility]. Sinan Martinez RN accompanying patient and handoff provided. Unable to give handoff to a [facility] RN at this time.
--- NOTE | 2021-06-25 12:34 | P.PNIM_ITS ---
Subjective Subjective Date of Service: 06/25/21 Interval History: cc: diarrhea interval history: sepsis improved. Cardiovascular Cardiovascular: Reports no additional cardiovascular complaints Respiratory Respiratory: Reports no additional respiratory complaints Physical Exam Vital Signs: Vital Signs: Last Vital Signs Temp 97.8 F 06/25/21 11:05 Pulse 73 06/25/21 11:05 Resp 18 06/25/21 11:05 BP 125/69 06/25/21 11:05 Pulse Ox 98 06/25/21 11:05 Body Mass Index 28.5 General: AO X 3, no acute distress, ill appearing, juandice Resp: CTA bilateral, no accessory muscles used CVS: S1,S2,RRR GI: soft, tender, non distended Neuro: motor grossly intact, alert Psych: appropriate affect, appropriate insight Objective Data Active Medications Acetaminophen (Acetaminophen 325 Mg Tablet) 650 mg PO Q6H PRN PRN Reason: Pain, Mild (Pain Scale 1-3) Last Admin: 06/24/21 01:24 Dose: 650 mg Documented by: ALMA Albuterol Sulfate (Albuterol Sulfate 90 Mcg 8 Gm Inhaler) 2 puff INHALE Q4H PRN PRN Reason: Shortness of Breath/Wheezing Lipase/Protease/Amylase (Lipase/Prot/Amylase 24/76/120k 1 Cap Capsule.) 4 cap PO TID [facility] Last Admin: 06/25/21 08:32 Dose: Not Given Documented by: GAGE Non-Admin Reason: patient refused Atorvastatin Calcium (Atorvastatin Calcium 40 Mg Tablet) 40 mg PO DAILY [facility] Last Admin: 06/25/21 08:20 Dose: 40 mg Documented by: GAGE Cholestyramine Resin (Cholestyramine (With Sugar) 4 Gm Powd.Pack) 4 gm PO BID PRN PRN Reason: Loose Stool Dextrose (Dextrose 50 % 25 Gm/50 Ml Vial) 25 gm IVPUSH Q15M PRN; Protocol PRN Reason: per Hypoglycemia Standing Ord. Dibucaine (Dibucaine 1 % Oint 28 Gm Tube) 1 appl TOPICAL Q6H PRN PRN Reason: Hemorrhoids Diphenoxylate HCl/Atropine (Diphenoxylate/Atrop 2.5/0.025 Tablet) 1 tab PO Q6H PRN PRN Reason: Loose Stool Ferrous Sulfate (Ferrous Sulfate 324 Mg Tablet.) 324 mg PO DAILY [facility] Last Admin: 06/25/21 08:33 Dose: Not Given Documented by: GAGE Non-Admin Reason: refused Glucose (Glucose Gel 15 Gm Gel..Gram.) 15 gm PO Q15M PRN; Protocol PRN Reason: per Hypoglycemia Standing Ord. Hydromorphone HCl (Hydromorphone Hcl 1 Mg/Ml Syringe) 0.8 mg IVPUSH Q4H PRN; Protocol PRN Reason: severe pain Last Admin: 06/22/21 17:10 Dose: 0.8 mg Documented by: GUMARO Sodium Chloride (Ns) 1,000 mls @ 100 mls/hr IVCONT .Q10H [facility] Last Admin: 06/25/21 10:34 Dose: 100 mls/hr Documented by: GAGE Vancomycin HCl 1,000 mg/ (Sodium Chloride) 270 mls @ 270 mls/hr IV Q24H [facility] Last Infusion: 06/24/21 23:00 Dose: 0 mls/hr Documented by: EDDIE Piperacillin Sod/Tazobactam (Sod 2.25 gm/ Sodium Chloride) 50 mls @ 100 mls/hr IV Q6H [facility] Last Infusion: 06/25/21 11:49 Dose: 0 mls/hr Documented by: GAGE Insulin Human Lispro (Insulin Lispro 100 Unit/Ml 3 Ml Vial) 0 unit SUBCUT QIDACHS [facility]; Protocol Last Admin: 06/25/21 11:07 Dose: Not Given Documented by: GAGE Non-Admin Reason: No Insulin Coverage Metoprolol Succinate (Metoprolol Succinate Er 50 Mg Tab.Er.24h) 50 mg PO BID [facility]; Protocol Last Admin: 06/25/21 08:21 Dose: 50 mg Documented by: GAGE Mirtazapine (Mirtazapine 7.5 Mg Tablet) 7.5 mg PO BEDTIME [facility] Last Admin: 06/24/21 22:15 Dose: Not Given Documented by: EDDIE Non-Admin Reason: NPO Morphine Sulfate (Morphine Sulfate Er 15 Mg Tablet.Er) 15 mg PO TID [facility] Last Admin: 06/25/21 08:22 Dose: 15 mg Documented by: GAGE Ondansetron HCl (Ondansetron Hcl 4 Mg/2 Ml Vial) 4 mg IVPUSH Q8H PRN PRN Reason: Nausea and Vomiting Pantoprazole Sodium (Pantoprazole Sodium 40 Mg/10 Ml Vial) 40 mg IVPUSH BID@0630,5930 [facility] Last Admin: 06/25/21 06:24 Dose: 40 mg Documented by: ALMA Pharmacy Consult (Consult Rx Vancomycin Dosing) 1 each MISCELLANE DAILY PRN PRN Reason: Consult order Rifaximin (Rifaximin 550 Mg Tablet) 550 mg PO TID [facility] Last Admin: 06/25/21 08:20 Dose: 550 mg Documented by: GAGE Sodium Chloride (0.9 % Sodium Chloride Flush 3 Ml Syringe) 3 ml IVFLUSH QSHIFT [facility] Last Admin: 06/25/21 08:21 Dose: 3 ml Documented by: GAGE Thiamine HCl (Thiamine Hcl 100 Mg Tablet) 100 mg PO DAILY [facility] Last Admin: 06/25/21 08:20 Dose: 100 mg Documented by: GAGE Vitamin D (Cholecalciferol (Vitamin D3) 25 Mcg Tablet) 25 mcg PO DAILY [facility] Last Admin: 06/25/21 08:20 Dose: 25 mcg Documented by: GAGE Labs CBC & Chem 7: 06/25/21 06:08 06/25/21 06:08 Labs: Laboratory Results - last 24 hr 06/24/21 06/24/21 06/24/21 09:33 10:26 13:05 MCV MCH MCHC RDW Plt Count MPV Absolute Nucleated RBC Nucleated RBC % (auto) PT INR APTT Anion Gap Estim Creat Clear Calc Estimated GFR POC Glucose Random Glucose Lactic Acid Fup @ 4Hr 5.9 H* Calcium Magnesium Total Bilirubin 5.7 H Direct Bilirubin 1.1 H AST 241 H ALT 40 H Alkaline Phosphatase 521 H D Total Protein 6.3 L Albumin 2.2 L D Procalcitonin Nasal Screen MRSA (PCR) Nasal S. aureus Screen Nasal MRSA/S.aureus Interp Blood Type A Positive Antibody Screen NEGATIVE XAVIER, Polyspecific NEGATIVE Positive XAVIER Work-up TNP Crossmatch See Detail 06/24/21 06/24/21 06/24/21 16:15 18:00 20:23 MCV MCH MCHC RDW Plt Count MPV Absolute Nucleated RBC Nucleated RBC % (auto) PT 46.0 H INR 3.9 H APTT 41.1 H Anion Gap Estim Creat Clear Calc Estimated GFR POC Glucose 189 H 168 H Random Glucose Lactic Acid Fup @ 4Hr Calcium Magnesium Total Bilirubin Direct Bilirubin AST ALT Alkaline Phosphatase Total Protein Albumin Procalcitonin Nasal Screen MRSA (PCR) Nasal S. aureus Screen Nasal MRSA/S.aureus Interp Blood Type Antibody Screen XAVIER, Polyspecific Positive XAVIER Work-up Crossmatch 06/25/21 06/25/21 06/25/21 06:08 06:08 06:08 MCV 85.9 MCH 29.7 MCHC 34.6 RDW 15.8 Plt Count 89 L D MPV Not Reportable Absolute Nucleated RBC 0.300 H Nucleated RBC % (auto) 0.8 H PT INR APTT Anion Gap 15 Estim Creat Clear Calc 28.3 Estimated GFR 29 POC Glucose Random Glucose 132 H Lactic Acid Fup @ 4Hr Calcium 7.6 L D Magnesium 2.4 Total Bilirubin 4.6 H Direct Bilirubin 2.0 H AST 160 H ALT 32 H Alkaline Phosphatase 204 H D Total Protein 4.9 L D Albumin 2.3 L Procalcitonin 242.02 Nasal Screen MRSA (PCR) Nasal S. aureus Screen Nasal MRSA/S.aureus Interp Blood Type Antibody Screen XAVIER, Polyspecific Positive XAVIER Work-up Crossmatch 06/25/21 06/25/21 06/25/21 07:34 08:49 10:57 MCV MCH MCHC RDW Plt Count MPV Absolute Nucleated RBC Nucleated RBC % (auto) PT INR APTT Anion Gap Estim Creat Clear Calc Estimated GFR POC Glucose 124 H 122 H Random Glucose Lactic Acid Fup @ 4Hr Calcium Magnesium Total Bilirubin Direct Bilirubin AST ALT Alkaline Phosphatase Total Protein Albumin Procalcitonin Nasal Screen MRSA (PCR) NEGATIVE Nasal S. aureus Screen POSITIVE A Nasal MRSA/S.aureus Interp SEE NOTE Blood Type Antibody Screen XAVIER, Polyspecific Positive XAVIER Work-up Crossmatch Microbiology Microbiology Results: Microbiology 06/23/21 18:51 Blood Culture - Preliminary Blood - Venous Prelim: GPR Gram Stain only Enterococcus/Streptococcus sp Gram negative lizette 06/23/21 17:32 Blood Culture - Preliminary Blood - Venous Prelim: GPR Gram Stain only Gram negative lizette Enterococcus/Streptococcus sp 06/22/21 16:26 Stool Culture - Preliminary Stool Culture in progress. 06/21/21 18:45 Stool Culture - Preliminary Stool Escherichia coli 06/22/21 16:51 Urine Culture - Final Urine clean catch - Clean Catch Midstream Assessment and Plan (1) Metabolic acidosis: Status: Acute (2) Diarrhea: Status: Acute (3) Melena: Status: Acute (4) Hypokalemia: Status: Acute Assessment and Plan: hospital d#5 66yo F with stage IV pancreatic CA s/p EUS-guided gastrojejunostomy with stenting and s/p 4 cycles FOLFIRINOX chemotherapy, AF on apixaban, DM2, HTN, HLD admitted [place] [facility] [place]18-06/19 with metabolic acidosis and multiple electrolyte abnormalities due to diarrhea discharged to [facility] for STR sent back in with recurrent acidosis and had episode of melena now septic with polymicrobial bacteremia, pneumonia lactic acidosis, PATRICE severe sepsis due to polymicrobial bacteremia, ascending cholangitis, pneumonia - vanc + pip/diana d#3, follow BCx, ID following - scheduled today for percutanseous trnashepatic cholangiography at [facility] PATRICE ivf, nephro following, monitor melena acute/chronic blood loss anemia held apixaban, Hb appropriate p 1u pRBCs transfused 06/22, continue PPI, GI following transfused 1u pRBCs 11/, will give another 2u pRBCs 06/24, now hgb up from 6.9 to 9.3 hypokalemia - replace and monitor hypomagnesemia - repleted chronic diarrhea - likely due to chemotherapy + pancreatic insufficiency + possible SIBO- rifaxmi n started as per GI- on d#2/ pancreatic insufficiency - enzyme replacement, cholestyramine paroxysmal atrial fibrillation - hold anticoagulation due to GIB - continue metoprolol succinate HTN - metoprolol succinate DM2 - correction-dose lispro HLD - statin chronic cancer pain - continue MSSR - prn IV hydromorphone VTE ppx - SCDs dispo - poor prognosis; dr plascencia discussed with pt's HCP/friend Apollo Camacho who now lives in [place]. also discussed with pt's local friend Michelle Ahn [phone]. pt has no surviving family members Quality Stroke Does the patient have a stroke diagnosis?: No VTE Prior VTE?: No VTE Risk Level:: Medical - moderate - high VTE Device Contraindication: N/A - Device Ordered VTE Drug Contraindication: Treatment Not Indicated
--- NOTE | 2021-06-25 14:49 | P.EN_ITS ---
Event Note Date of Service: 06/25/21 Event Note: Pt not in her room In [facility] [place] try to see pt in AM
--- NOTE | 2021-06-25 14:49 | PM.EVENT ---
Event Note Date of Service: 06/25/21 Event Note: Pt not in her room In [facility] [place] Will try to see pt in AM
[2021-06-25 18:15] LABS: Glucose, Whole Blood 120 mg/dL (60-115)
[2021-06-25 20:10] LABS: Glucose, Whole Blood 152 mg/dL (60-115)
[2021-06-25] MEDS: Mirtazapine 7.5 MG TABLET PO (20:46)
[2021-06-25] MEDS: Insulin Lispro 100 UNIT/ML 3 ML VIAL SUBCUT (20:46)
[2021-06-25] MEDS: HYDROmorphone HCl 1 MG/ML SYRINGE 0.8 MG IVPUSH (20:46)
--- NOTE | 2021-06-25 22:23 | PC.NURSE ---
Addendum entered by Rae Nassar RN 06/25/21 22:27: RN contacted RN Spine Nurse to have someone from the emergency dept to draw labs on pt. Labs successfully drawn. Awaiting results. Original Note: RN contacted MD regarding potassium redraw due to pt receiving 60 MEQ potassium this morning prior to having procedure at [facility]. MD ordered BMP stat. Multiple attempts for blood draw for BMP and vanco trough. MD notified multiple times regarding inability to draw labs. Pharmacy notified and vancomycin dose put on hold.
[2021-06-25 22:43] LABS: Anion Gap 13 (12-20); Blood Urea Nitrogen 44 mg/dL (9-16); Calcium 6.8 mg/dL (8.4-10.2); Carbon Dioxide 20 mmol/L (22-29); Chloride 112 mmol/L (96-108); Estimated Glomerular Filt Rate 23; Glucose Random 156 mg/dL (60-115); Potassium 2.9 mmol/L (3.3-5.1); Sodium 142 mmol/L (135-145)
[2021-06-25 22:44] LABS: Vancomycin Trough 23.4 mcg/mL (10.0-20.0)
[2021-06-26] VITALS (7 sets, daily range): BP systolic 112–149; BP diastolic 60–77; PULSE 65–83; RESP 16–20; TEMP 36.2–37.1; O2SAT 97–100
[2021-06-26] MEDS: Potassium Chloride Packet 20 MEQ PACKET 40 MEQ PO (00:32)
[2021-06-26] MEDS: Piperacillin Sodium/Tazobactam 2.25 GM in 0.9 % Sodium Chloride 50 ML IV ×4 (00:32→16:56)
[2021-06-26] MEDS: Morphine Sulfate ER 15 MG TABLET.ER PO ×3 (02:53→21:22)
[2021-06-26] MEDS: 0.9 % Sodium Chloride 1,000 ML 100 ML IVCONT ×2 (05:59→15:16)
[2021-06-26] MEDS: Pantoprazole Sodium 40 MG/10 ML VIAL IVPUSH (05:59)
[2021-06-26 07:46] LABS: Hemoglobin 11.6 g/dl (12.0-16.0); NRBC Pct Auto 0.9 /100WBC (0.0-0.2)
[2021-06-26 07:48] LABS: Hematocrit 35.4 % (37.0-47.0); Mean Corpuscular HGB Conc 32.8 g/dl (31.0-35.0); Mean Corpuscular Hemoglobin 29.1 pg (27.0-33.0); Mean Corpuscular Volume 88.7 fL (80.0-98.0); PLT CLUMP 1; Red Cell Distribution Width 17.2 % (11.0-16.0)
[2021-06-26 07:51] LABS: PLT ABN DIST 1
[2021-06-26 07:55] LABS: Glucose, Whole Blood 143 mg/dL (60-115)
[2021-06-26 08:05] LABS: Alanine Aminotransferase 23 U/L (0-31); Albumin Level 2.4 g/dL (3.5-5.0); Alkaline Phosphatase 146 U/L (39-117); Anion Gap 16 (12-20); Aspartate Amino Transferase 44 U/L (5-31); Bilirubin Total 1.7 mg/dL (0.0-1.0); Blood Urea Nitrogen 39 mg/dL (9-16); Calcium 7.3 mg/dL (8.4-10.2); Carbon Dioxide 19 mmol/L (22-29); Chloride 109 mmol/L (96-108); Creatinine Clr Calc Pharmacy 21.5; Estimated Glomerular Filt Rate 22; Glucose Fasting 149 mg/dL (60-99); Potassium 3.5 mmol/L (3.3-5.1); Sodium 140 mmol/L (135-145); Total Protein 5.4 g/dL (6.5-8.0)
[2021-06-26 08:20] LABS: Vancomycin Random 21.1 mcg/mL (15-20)
[2021-06-26 08:52] LABS: White Blood Count 22.8 X10*3/uL (4.8-10.8)
[2021-06-26 08:53] LABS: Platelet Count 58 X10*3/uL (160-400)
[2021-06-26 08:54] LABS: Red Blood Count 3.99 X10*6/uL (4.20-5.50)
[2021-06-26] MEDS: Thiamine HCL 100 MG TABLET PO (09:12)
[2021-06-26] MEDS: rifAXIMin 550 MG TABLET PO ×3 (09:12→21:22)
[2021-06-26] MEDS: Cholecalciferol (Vitamin D3) 25 MCG TABLET PO (09:12)
[2021-06-26] MEDS: Metoprolol Succinate ER 50 MG TAB.ER.24H PO ×2 (09:13→21:21)
[2021-06-26] MEDS: Atorvastatin Calcium 40 MG TABLET PO (09:13)
[2021-06-26] MEDS: 0.9 % Sodium Chloride Flush 3 ML SYRINGE IVFLUSH ×2 (09:20→15:18)
--- NOTE | 2021-06-26 10:53 | HO.PM.IMPN ---
Subjective Subjective Date of Service: 06/26/21 Interval History: cc: diarrhea interval history: sepsis improved. pain at tube site Cardiovascular Cardiovascular: Reports no additional cardiovascular complaints Respiratory Respiratory: Reports no additional respiratory complaints Physical Exam Vital Signs: Vital Signs: Last Vital Signs Temp 98.5 F 06/26/21 07:48 Pulse 70 06/26/21 09:13 Resp 18 06/26/21 07:48 BP 115/61 06/26/21 09:13 Pulse Ox 100 06/26/21 07:48 Body Mass Index 28.5 General: AO X 3, no acute distress, juandice resolved Resp: CTA bilateral, no accessory muscles used CVS: S1,S2,RRR GI: soft, ruq tender, non distended, internal/extrenal biliary tube in place Neuro: motor grossly intact, alert Psych: appropriate affect, appropriate insight Objective Data Active Medications Acetaminophen (Acetaminophen 325 Mg Tablet) 650 mg PO Q6H PRN PRN Reason: Pain, Mild (Pain Scale 1-3) Last Admin: 06/24/21 01:24 Dose: 650 mg Documented by: ALMA Albuterol Sulfate (Albuterol Sulfate 90 Mcg 8 Gm Inhaler) 2 puff INHALE Q4H PRN PRN Reason: Shortness of Breath/Wheezing Lipase/Protease/Amylase (Lipase/Prot/Amylase 24/76/120k 1 Cap Capsule.) 4 cap PO TID [facility] Last Admin: 06/26/21 09:20 Dose: Not Given Documented by: GAGE Non-Admin Reason: Patient Refused Atorvastatin Calcium (Atorvastatin Calcium 40 Mg Tablet) 40 mg PO DAILY [facility] Last Admin: 06/26/21 09:13 Dose: 40 mg Documented by: GAGE Cholestyramine Resin (Cholestyramine (With Sugar) 4 Gm Powd.Pack) 4 gm PO BID PRN PRN Reason: Loose Stool Dextrose (Dextrose 50 % 25 Gm/50 Ml Vial) 25 gm IVPUSH Q15M PRN; Protocol PRN Reason: per Hypoglycemia Standing Ord. Dibucaine (Dibucaine 1 % Oint 28 Gm Tube) 1 appl TOPICAL Q6H PRN PRN Reason: Hemorrhoids Diphenoxylate HCl/Atropine (Diphenoxylate/Atrop 2.5/0.025 Tablet) 1 tab PO Q6H PRN PRN Reason: Loose Stool Ferrous Sulfate (Ferrous Sulfate 324 Mg Tablet.) 324 mg PO DAILY [facility] Last Admin: 06/26/21 09:12 Dose: Not Given Documented by: GAGE Non-Admin Reason: Patient Refused Glucose (Glucose Gel 15 Gm Gel..Gram.) 15 gm PO Q15M PRN; Protocol PRN Reason: per Hypoglycemia Standing Ord. Hydromorphone HCl (Hydromorphone Hcl 1 Mg/Ml Syringe) 0.8 mg IVPUSH Q4H PRN; Protocol PRN Reason: severe pain Last Admin: 06/25/21 20:46 Dose: 0.8 mg Documented by: GILLIAN Sodium Chloride (Ns) 1,000 mls @ 100 mls/hr IVCONT .Q10H [facility] Last Admin: 06/26/21 05:59 Dose: 100 mls/hr Documented by: GILLIAN Piperacillin Sod/Tazobactam (Sod 2.25 gm/ Sodium Chloride) 50 mls @ 100 mls/hr IV Q6H [facility] Last Infusion: 06/26/21 06:50 Dose: 0 mls/hr Documented by: GAGE Insulin Human Lispro (Insulin Lispro 100 Unit/Ml 3 Ml Vial) 0 unit SUBCUT QIDACHS [facility]; Protocol Last Admin: 06/26/21 07:58 Dose: Not Given Documented by: GAGE Non-Admin Reason: No Insulin Coverage Metoprolol Succinate (Metoprolol Succinate Er 50 Mg Tab.Er.24h) 50 mg PO BID [facility]; Protocol Last Admin: 06/26/21 09:13 Dose: 50 mg Documented by: GAGE Mirtazapine (Mirtazapine 7.5 Mg Tablet) 7.5 mg PO BEDTIME [facility] Last Admin: 06/25/21 20:46 Dose: 7.5 mg Documented by: GILLIAN Morphine Sulfate (Morphine Sulfate Er 15 Mg Tablet.Er) 15 mg PO TID [facility] Last Admin: 06/26/21 09:13 Dose: 15 mg Documented by: GAGE Omeprazole (Omeprazole 40 Mg Capsule.) 40 mg PO DAILY@0630 [facility] Ondansetron HCl (Ondansetron Hcl 4 Mg/2 Ml Vial) 4 mg IVPUSH Q8H PRN PRN Reason: Nausea and Vomiting Pharmacy Consult (Consult Rx Vancomycin Dosing) 1 each MISCELLANE DAILY PRN PRN Reason: Consult order Rifaximin (Rifaximin 550 Mg Tablet) 550 mg PO TID [facility] Last Admin: 06/26/21 09:12 Dose: 550 mg Documented by: GAGE Sodium Chloride (0.9 % Sodium Chloride Flush 3 Ml Syringe) 3 ml IVFLUSH QSHIFT [facility] Last Admin: 06/26/21 09:20 Dose: 3 ml Documented by: GAGE Thiamine HCl (Thiamine Hcl 100 Mg Tablet) 100 mg PO DAILY [facility] Last Admin: 06/26/21 09:12 Dose: 100 mg Documented by: GAGE Vitamin D (Cholecalciferol (Vitamin D3) 25 Mcg Tablet) 25 mcg PO DAILY [facility] Last Admin: 06/26/21 09:12 Dose: 25 mcg Documented by: GAGE Labs CBC & Chem 7: 06/26/21 07:37 06/26/21 07:37 Labs: Laboratory Results - last 24 hr 06/24/21 06/25/21 06/25/21 09:33 10:57 18:09 MCV MCH MCHC RDW Plt Count MPV Absolute Nucleated RBC Nucleated RBC % (auto) Anion Gap Estim Creat Clear Calc Estimated GFR POC Glucose 122 H 120 H Random Glucose Fasting Glucose Calcium Total Bilirubin Direct Bilirubin AST ALT Alkaline Phosphatase Total Protein Albumin Vancomycin Trough Random Vancomycin Crossmatch See Detail 06/25/21 06/25/21 06/25/21 19:53 22:14 22:14 MCV MCH MCHC RDW Plt Count MPV Absolute Nucleated RBC Nucleated RBC % (auto) Anion Gap 13 Estim Creat Clear Calc 23.0 Estimated GFR 23 POC Glucose 152 H Random Glucose 156 H Fasting Glucose Calcium 6.8 L D Total Bilirubin Direct Bilirubin AST ALT Alkaline Phosphatase Total Protein Albumin Vancomycin Trough 23.4 H Random Vancomycin Crossmatch 06/26/21 06/26/21 06/26/21 07:37 07:37 07:37 MCV 88.7 MCH 29.1 MCHC 32.8 RDW 17.2 H Plt Count 58 L D MPV Not Reportable Absolute Nucleated RBC 0.200 H Nucleated RBC % (auto) 0.9 H Anion Gap 16 Estim Creat Clear Calc 21.5 Estimated GFR 22 POC Glucose Random Glucose Fasting Glucose 149 H Calcium 7.3 L D Total Bilirubin 1.7 H Direct Bilirubin 1.0 H AST 44 H D ALT 23 Alkaline Phosphatase 146 H D Total Protein 5.4 L Albumin 2.4 L Vancomycin Trough Random Vancomycin 21.1 H Crossmatch 06/26/21 07:52 MCV MCH MCHC RDW Plt Count MPV Absolute Nucleated RBC Nucleated RBC % (auto) Anion Gap Estim Creat Clear Calc Estimated GFR POC Glucose 143 H Random Glucose Fasting Glucose Calcium Total Bilirubin Direct Bilirubin AST ALT Alkaline Phosphatase Total Protein Albumin Vancomycin Trough Random Vancomycin Crossmatch Microbiology Microbiology Results: Microbiology 06/23/21 18:51 Blood Culture - Preliminary Blood - Venous Prelim: GPR Gram Stain only Enterococcus faecium Klebsiella pneumoniae Gram negative lizette 06/23/21 17:32 Blood Culture - Preliminary Blood - Venous Prelim: GPR Gram Stain only Gram negative lizette Enterococcus faecium Gram negative lizette#2 06/22/21 16:26 Stool Culture - Preliminary Stool Escherichia coli 06/25/21 06:08 Blood Culture - Preliminary Blood - Venous No growth after 24 hours. 06/25/21 06:08 Blood Culture - Preliminary Blood - Venous No growth after 24 hours. 06/21/21 18:45 Stool Culture - Preliminary Stool Escherichia coli Assessment and Plan (1) Metabolic acidosis: Status: Acute (2) Diarrhea: Status: Acute (3) Melena: Status: Acute (4) Hypokalemia: Status: Acute Assessment and Plan: hospital d#6 66yo F with stage IV pancreatic CA s/p EUS-guided gastrojejunostomy with stenting and s/p 4 cycles FOLFIRINOX chemotherapy, AF on apixaban, DM2, HTN, HLD admitted to [facility] [place] 06/18-06/19 with metabolic acidosis and multiple electrolyte abnormalities due to diarrhea discharged to [facility] for STR sent back in with recurrent acidosis and had episode of melena became septic with polymicrobial bacteremia, pneumonia, cholangitis lactic acidosis, PATRICE severe sepsis due to polymicrobial bacteremia, ascending cholangitis, pneumonia - vanc + pip/diana d#4, follow BCx, ID following -a/p percutaneous transhepatic cholangiography at [facility] [place] 06/25/21 with stent and internal/external drain placed, draining well overnight, lfts markedly improved, pain at site, but overal ruq pain improved. monitor output, plan to close tube tomorrow and recontact IR at [facility] [place] - dr. Alcantara [phone] PATRICE ivf, nephro following, monitor melena acute/chronic blood loss anemia held apixaban,s/p 3units total prbc, now hgb up from chelsi of 5.5, today 11.6 hypokalemia - replaced and monitor hypomagnesemia - repleted chronic diarrhea - likely due to chemotherapy + pancreatic insufficiency + possible SIBO- rifaxmin started as per GI- on d#4/14 pancreatic insufficiency - enzyme replacement, cholestyramine paroxysmal atrial fibrillation - hold anticoagulation due to GIB - continue metoprolol succinate HTN - metoprolol succinate DM2 - correction-dose lispro HLD - statin chronic cancer pain - continue MSSR - prn IV hydromorphone VTE ppx - SCDs dispo - poor prognosis; dr plascencia discussed with pt's HCP/friend Apollo Camacho who now lives in [place]. also discussed with pt's local friend Mel[place] [phone]. pt has no surviving family members Quality Stroke Does the patient have a stroke diagnosis?: No VTE Prior VTE?: No VTE Risk Level:: Medical - moderate - high VTE Device Contraindication: N/A - Device Ordered VTE Drug Contraindication: Treatment Not Indicated
[2021-06-26] MEDS: Insulin Lispro 100 UNIT/ML 3 ML VIAL SUBCUT ×2 (12:01→16:56)
[2021-06-26 14:26] LABS: Glucose, Whole Blood 182 mg/dL (60-115)
[2021-06-26] MEDS: Lactated Ringers 1,000 ML 150 ML IVCONT ×2 (15:37→23:00)
[2021-06-26 16:25] LABS: Glucose, Whole Blood 161 mg/dL (60-115)
[2021-06-26 20:27] LABS: Glucose, Whole Blood 138 mg/dL (60-115)
[2021-06-26] MEDS: Mirtazapine 7.5 MG TABLET PO (21:21)
--- NOTE | 2021-06-26 21:46 | PM.EVENT ---
Event Note Date of Service: 06/26/21 Event Note: Pt seen and examined Full consult to follow D/w medical team
[2021-06-27] VITALS (7 sets, daily range): BP systolic 101–149; BP diastolic 61–80; PULSE 64–100; RESP 17–66; TEMP 36.2–37.4; O2SAT 95–100
[2021-06-27] MEDS: HYDROmorphone HCl 1 MG/ML SYRINGE 0.8 MG IVPUSH (00:55)
[2021-06-27] MEDS: Piperacillin Sodium/Tazobactam 2.25 GM in 0.9 % Sodium Chloride 50 ML IV ×4 (00:55→17:50)
[2021-06-27] MEDS: Lactated Ringers 1,000 ML 150 ML IVCONT ×2 (05:44→19:31)
[2021-06-27] MEDS: Omeprazole 40 MG CAPSULE.DR PO (05:56)
[2021-06-27 06:26] LABS: Hemoglobin 10.8 g/dl (12.0-16.0); Mean Corpuscular HGB Conc 32.7 g/dl (31.0-35.0); Mean Corpuscular Hemoglobin 29.2 pg (27.0-33.0); Mean Corpuscular Volume 89.2 fL (80.0-98.0); NRBC Pct Auto 0.4 /100WBC (0.0-0.2); Red Cell Distribution Width 17.4 % (11.0-16.0); White Blood Count 18.1 X10*3/uL (4.8-10.8)
[2021-06-27 06:31] LABS: Platelet Count 65 X10*3/uL (160-400)
[2021-06-27 06:40] LABS: Alanine Aminotransferase 17 U/L (0-31); Albumin Level 2.5 g/dL (3.5-5.0); Alkaline Phosphatase 135 U/L (39-117); Anion Gap 15 (12-20); Aspartate Amino Transferase 23 U/L (5-31); Bilirubin Direct 0.9 mg/dL (0.0-0.5); Bilirubin Total 1.5 mg/dL (0.0-1.0); Blood Urea Nitrogen 32 mg/dL (9-16); Calcium 7.9 mg/dL (8.4-10.2); Carbon Dioxide 20 mmol/L (22-29); Chloride 108 mmol/L (96-108); Estimated Glomerular Filt Rate 23; Glucose Fasting 101 mg/dL (60-99); Potassium 3.2 mmol/L (3.3-5.1); Sodium 140 mmol/L (135-145); Total Protein 5.5 g/dL (6.5-8.0)
[2021-06-27 07:41] LABS: Glucose, Whole Blood 93 mg/dL (60-115)
[2021-06-27] MEDS: 0.9 % Sodium Chloride Flush 3 ML SYRINGE IVFLUSH ×3 (08:24→19:32)
[2021-06-27] MEDS: Potassium Chloride/H20 10 MEQ/100 ML PIGGYBACK 100 MEQ IV ×4 (08:24→13:37)
[2021-06-27] MEDS: Cholecalciferol (Vitamin D3) 25 MCG TABLET PO (08:33)
[2021-06-27] MEDS: rifAXIMin 550 MG TABLET PO ×3 (08:33→20:45)
[2021-06-27] MEDS: Metoprolol Succinate ER 50 MG TAB.ER.24H PO ×2 (08:33→20:45)
[2021-06-27] MEDS: Atorvastatin Calcium 40 MG TABLET PO (08:33)
[2021-06-27] MEDS: Thiamine HCL 100 MG TABLET PO (08:33)
[2021-06-27] MEDS: Ferrous Sulfate 324 MG TABLET.DR PO (08:33)
[2021-06-27] MEDS: Morphine Sulfate ER 15 MG TABLET.ER PO ×2 (08:34→20:45)
[2021-06-27 11:27] LABS: Glucose, Whole Blood 151 mg/dL (60-115)
--- NOTE | 2021-06-27 11:30 | P.PNIM_ITS ---
Subjective Subjective Date of Service: 06/27/21 Interval History: cc: diarrhea interval history: sepsis improved. pain at tube site, improved Cardiovascular Cardiovascular: Reports no additional cardiovascular complaints Respiratory Respiratory: Reports no additional respiratory complaints Physical Exam Vital Signs: Vital Signs: Last Vital Signs Temp 98.1 F 06/27/21 11:10 Pulse 100 06/27/21 11:10 Resp 18 06/27/21 11:10 BP 127/77 06/27/21 11:10 Pulse Ox 100 06/27/21 11:10 Body Mass Index 28.5 General: AO X 3, no acute distress, juandice resolved Resp:? CTA bilateral, no accessory muscles used CVS: S1,S2,RRR GI: soft, ruq tender, non distended, internal/extrenal biliary tube in place Neuro:? motor grossly intact, alert, resting tremor Psych: appropriate affect, appropriate insight? Objective Data Active Medications Acetaminophen (Acetaminophen 325 Mg Tablet) 650 mg PO Q6H PRN PRN Reason: Pain, Mild (Pain Scale 1-3) Last Admin: 06/24/21 01:24 Dose: 650 mg Documented by: ALMA Albuterol Sulfate (Albuterol Sulfate 90 Mcg 8 Gm Inhaler) 2 puff INHALE Q4H PRN PRN Reason: Shortness of Breath/Wheezing Lipase/Protease/Amylase (Lipase/Prot/Amylase 24/76/120k 1 Cap Capsule.) 4 cap PO TID [facility] Last Admin: 06/27/21 08:33 Dose: Not Given Documented by: DEBORAH Non-Admin Reason: Patient Refused Atorvastatin Calcium (Atorvastatin Calcium 40 Mg Tablet) 40 mg PO DAILY [facility] Last Admin: 06/27/21 08:33 Dose: 40 mg Documented by: DEBORAH Cholestyramine Resin (Cholestyramine (With Sugar) 4 Gm Powd.Pack) 4 gm PO BID PRN PRN Reason: Loose Stool Dextrose (Dextrose 50 % 25 Gm/50 Ml Vial) 25 gm IVPUSH Q15M PRN; Protocol PRN Reason: per Hypoglycemia Standing Ord. Dibucaine (Dibucaine 1 % Oint 28 Gm Tube) 1 appl TOPICAL Q6H PRN PRN Reason: Hemorrhoids Ferrous Sulfate (Ferrous Sulfate 324 Mg Tablet.) 324 mg PO DAILY [facility] Last Admin: 06/27/21 08:33 Dose: 324 mg Documented by: DEBORAH Glucose (Glucose Gel 15 Gm Gel..Gram.) 15 gm PO Q15M PRN; Protocol PRN Reason: per Hypoglycemia Standing Ord. Piperacillin Sod/Tazobactam (Sod 2.25 gm/ Sodium Chloride) 50 mls @ 100 mls/hr IV Q6H [facility] Last Infusion: 06/27/21 06:38 Dose: 0 mls/hr Documented by: GILLIAN Lactated Ringer's (Lr) 1,000 mls @ 150 mls/hr IVCONT .Q6H40M [facility] Last Infusion: 06/27/21 08:00 Dose: 0 mls/hr Documented by: DEBORAH Potassium Chloride () 10 meq in 100 mls @ 100 mls/hr IV Q1H [facility] Stop: 06/27/21 12:59 Last Admin: 06/27/21 11:28 Dose: 100 mls/hr Documented by: DEBORAH Insulin Human Lispro (Insulin Lispro 100 Unit/Ml 3 Ml Vial) 0 unit SUBCUT QIDACHS [facility]; Protocol Last Admin: 06/27/21 08:04 Dose: Not Given Documented by: DEBORAH Non-Admin Reason: No Insulin Coverage Metoprolol Succinate (Metoprolol Succinate Er 50 Mg Tab.Er.24h) 50 mg PO BID [facility]; Protocol Last Admin: 06/27/21 08:33 Dose: 50 mg Documented by: DEBORAH Mirtazapine (Mirtazapine 7.5 Mg Tablet) 7.5 mg PO BEDTIME [facility] Last Admin: 06/26/21 21:21 Dose: 7.5 mg Documented by: GILLIAN Omeprazole (Omeprazole 40 Mg Capsule.Dr) 40 mg PO DAILY@0630 [facility] Last Admin: 06/27/21 05:56 Dose: 40 mg Documented by: GILLIAN Ondansetron HCl (Ondansetron Hcl 4 Mg/2 Ml Vial) 4 mg IVPUSH Q8H PRN PRN Reason: Nausea and Vomiting Pharmacy Consult (Consult Rx Vancomycin Dosing) 1 each MISCELLANE DAILY PRN PRN Reason: Consult order Rifaximin (Rifaximin 550 Mg Tablet) 550 mg PO TID [facility] Last Admin: 06/27/21 08:33 Dose: 550 mg Documented by: DEBORAH Sodium Chloride (0.9 % Sodium Chloride Flush 3 Ml Syringe) 3 ml IVFLUSH QSHIFT [facility] Last Admin: 06/27/21 08:24 Dose: 3 ml Documented by: DEBORAH Thiamine HCl (Thiamine Hcl 100 Mg Tablet) 100 mg PO DAILY [facility] Last Admin: 06/27/21 08:33 Dose: 100 mg Documented by: DEBORAH Vitamin D (Cholecalciferol (Vitamin D3) 25 Mcg Tablet) 25 mcg PO DAILY [facility] Last Admin: 06/27/21 08:33 Dose: 25 mcg Documented by: DEBORAH Labs CBC & Chem 7: 06/27/21 06:05 06/27/21 06:05 Labs: Laboratory Results - last 24 hr 06/26/21 06/26/21 06/26/21 11:51 16:21 19:49 MCV MCH MCHC RDW Plt Count MPV Absolute Nucleated RBC Nucleated RBC % (auto) Anion Gap Estim Creat Clear Calc Estimated GFR POC Glucose 182 H 161 H 138 H Fasting Glucose Calcium Total Bilirubin Direct Bilirubin AST ALT Alkaline Phosphatase Total Protein Albumin 06/27/21 06/27/21 06/27/21 06:05 06:05 07:18 MCV 89.2 MCH 29.2 MCHC 32.7 RDW 17.4 H Plt Count 65 L MPV Not Reportable Absolute Nucleated RBC 0.080 H Nucleated RBC % (auto) 0.4 H Anion Gap 15 Estim Creat Clear Calc 23.0 Estimated GFR 23 POC Glucose 93 Fasting Glucose 101 H Calcium 7.9 L D Total Bilirubin 1.5 H Direct Bilirubin 0.9 H AST 23 D ALT 17 Alkaline Phosphatase 135 H Total Protein 5.5 L Albumin 2.5 L 06/27/21 11:12 MCV MCH MCHC RDW Plt Count MPV Absolute Nucleated RBC Nucleated RBC % (auto) Anion Gap Estim Creat Clear Calc Estimated GFR POC Glucose 151 H Fasting Glucose Calcium Total Bilirubin Direct Bilirubin AST ALT Alkaline Phosphatase Total Protein Albumin Microbiology Microbiology Results: Microbiology 06/23/21 18:51 Blood Culture - Preliminary Blood - Venous Clostridium perfringens Enterococcus faecium Klebsiella pneumoniae 06/23/21 17:32 Blood Culture - Preliminary Blood - Venous Clostridium perfringens Klebsiella pneumoniae Enterococcus faecium 06/25/21 06:08 Blood Culture - Preliminary Blood - Venous No growth after 48 hours. 06/25/21 06:08 Blood Culture - Preliminary Blood - Venous No growth after 48 hours. 06/21/21 20:00 Blood Culture - Final Blood - Venous No growth after 5 days. 06/21/21 20:00 Blood Culture - Final Blood - Venous No growth after 5 days. 06/22/21 16:26 Stool Culture - Preliminary Stool Escherichia coli Assessment and Plan (1) Metabolic acidosis: Status: Acute (2) Diarrhea: Status: Acute (3) Melena: Status: Acute (4) Hypokalemia: Status: Acute Assessment and Plan: hospital d#7 66yo F with stage IV pancreatic CA s/p EUS-guided gastrojejunostomy with stenting and s/p 4 cycles FOLFIRINOX chemotherapy, AF on apixaban, DM2, HTN, HLD [place] [facility] with metabolic acidosis and multiple electrolyte abnormalities due to diarrhea discharged to [facility] for STR sent back in with recurrent acidosis and had episode of melena became septic with polymicrobial bacteremia, pneumonia, cholangitis lactic acidosis, PATRICE severe sepsis due to polymicrobial bacteremia, ascending cholangitis, pneumonia - vanc + pip/diana d#5, follow BCx, ID following -a/p percutaneous trans[place]atic [place] [facility] with stent and internal/external drain placed, draining well overnight, lfts markedly improved monitor output, planned to close tube today, but still high output, awaiting call back from IR at [facility]. Alcantara [phone] PATRICE ivf, nephro following, monitor melena acute/chronic blood loss anemia held apixaban,s/p 3units total prbc, now hgb up from chelsi of 5.5, now stable around 10-11 hypokalemia - replace and monitor hypomagnesemia - repleted chronic diarrhea - likely due to chemotherapy + pancreatic insufficiency + possible SIBO- rifaxmin started as per GI- on d#12/13 pancreatic insufficiency - enzyme replacement, cholestyramine paroxysmal atrial fibrillation - hold anticoagulation due to GIB - continue metoprolol succinate HTN - metoprolol succinate DM2 - correction-dose lispro HLD - statin chronic cancer pain - continue MSSR - prn IV hydromorphone VTE ppx - SCDs dispo - poor prognosis; dr plascencia discussed with pt's HCP/friend Apollo Camacho who now lives in [place]. also discussed with pt's local friend Michelle Ahn [phone]. pt has no surviving family members Quality Stroke Does the patient have a stroke diagnosis?: No VTE Prior VTE?: No VTE Risk Level:: Medical - moderate - high VTE Device Contraindication: N/A - Device Ordered VTE Drug Contraindication: Treatment Not Indicated
[2021-06-27] MEDS: Insulin Lispro 100 UNIT/ML 3 ML VIAL SUBCUT (12:11)
[2021-06-27] MEDS: Lipase/Prot/Amylase 24/76/120K 1 CAP CAPSULE.DR 4 CAP PO ×2 (12:11→20:44)
--- NOTE | 2021-06-27 13:03 | MHC.CM.PN ---
Female 66 DX Metabolic acidosis No discharge today. DP return to [facility] via S. Updated information has been sent to the facility today. She is a bedhold.
[2021-06-27 16:19] LABS: Glucose, Whole Blood 134 mg/dL (60-115)
[2021-06-27] MEDS: Acetaminophen 325 MG TABLET 650 MG PO (18:14)
--- NOTE | 2021-06-27 18:29 | PC.NURSE ---
Dr. Tami greene connected me that the IR from [facility] recommended closing the external drain now and it will keep draining internally. Drain clamped by don at 1830.
[2021-06-27] MEDS: Mirtazapine 7.5 MG TABLET PO (20:45)
[2021-06-27 20:59] LABS: Glucose, Whole Blood 152 mg/dL (60-115)
[2021-06-28] VITALS (7 sets, daily range): BP systolic 100–148; BP diastolic 60–82; PULSE 66–88; RESP 18–20; TEMP 36.1–36.7; O2SAT 98–100
[2021-06-28] MEDS: Piperacillin Sodium/Tazobactam 2.25 GM in 0.9 % Sodium Chloride 50 ML IV ×5 (00:25→23:45)
[2021-06-28] MEDS: Lactated Ringers 1,000 ML 150 ML IVCONT ×4 (00:26→20:52)
[2021-06-28] MEDS: Omeprazole 40 MG CAPSULE.DR PO (05:06)
[2021-06-28 06:22] LABS: Hemoglobin 8.8 g/dl (12.0-16.0); NRBC Pct Auto 0.1 /100WBC (0.0-0.2)
[2021-06-28 06:24] LABS: Hematocrit 26.9 % (37.0-47.0); Mean Corpuscular HGB Conc 32.7 g/dl (31.0-35.0); Mean Corpuscular Hemoglobin 29.2 pg (27.0-33.0); Mean Corpuscular Volume 89.4 fL (80.0-98.0); Red Blood Count 3.01 X10*6/uL (4.20-5.50); Red Cell Distribution Width 17.3 % (11.0-16.0); White Blood Count 23.6 X10*3/uL (4.8-10.8)
[2021-06-28 06:25] LABS: PLT ABN DIST 1; Platelet Count 69 X10*3/uL (160-400)
[2021-06-28 06:38] LABS: Alanine Aminotransferase 12 U/L (0-31); Alkaline Phosphatase 115 U/L (39-117); Anion Gap 13 (12-20); Aspartate Amino Transferase 14 U/L (5-31); Bilirubin Direct 0.8 mg/dL (0.0-0.5); Bilirubin Total 1.2 mg/dL (0.0-1.0); Blood Urea Nitrogen 32 mg/dL (9-16); Calcium 7.1 mg/dL (8.4-10.2); Carbon Dioxide 20 mmol/L (22-29); Chloride 107 mmol/L (96-108); Creatinine Clr Calc Pharmacy 22.1; Estimated Glomerular Filt Rate 22; Glucose Fasting 101 mg/dL (60-99); Potassium 3.5 mmol/L (3.3-5.1); Sodium 136 mmol/L (135-145); Total Protein 4.6 g/dL (6.5-8.0)
[2021-06-28 07:54] LABS: Glucose, Whole Blood 83 mg/dL (60-115)
[2021-06-28] MEDS: 0.9 % Sodium Chloride Flush 3 ML SYRINGE IVFLUSH ×3 (08:58→20:53)
[2021-06-28] MEDS: Morphine Sulfate ER 15 MG TABLET.ER PO ×3 (08:59→20:58)
[2021-06-28] MEDS: Lipase/Prot/Amylase 24/76/120K 1 CAP CAPSULE.DR 4 CAP PO ×3 (08:59→20:53)
[2021-06-28] MEDS: Atorvastatin Calcium 40 MG TABLET PO (09:00)
[2021-06-28] MEDS: Metoprolol Succinate ER 50 MG TAB.ER.24H PO ×2 (09:00→20:53)
[2021-06-28] MEDS: Ferrous Sulfate 324 MG TABLET.DR PO (09:00)
[2021-06-28] MEDS: Cholecalciferol (Vitamin D3) 25 MCG TABLET PO (09:00)
[2021-06-28] MEDS: rifAXIMin 550 MG TABLET PO ×3 (09:00→20:53)
[2021-06-28] MEDS: Thiamine HCL 100 MG TABLET PO (09:00)
--- NOTE | 2021-06-28 10:57 | P.PNIM_ITS ---
Subjective Subjective Date of Service: 06/28/21 Interval History: cc: diarrhea interval history: sepsis improved. pain at tube site improved Cardiovascular Cardiovascular: Reports no additional cardiovascular complaints Respiratory Respiratory: Reports no additional respiratory complaints Physical Exam Vital Signs: Vital Signs: Last Vital Signs Temp 97.7 F 06/28/21 08:00 Pulse 71 06/28/21 08:00 Resp 18 06/28/21 08:00 BP 138/81 06/28/21 08:00 Pulse Ox 100 06/28/21 08:00 Body Mass Index 28.5 General: AO X 3, no acute distress, juandice resolved Resp:? CTA bilateral, no accessory muscles used CVS: S1,S2,RRR GI: soft, ruq tender, non distended, internal/extrenal biliary tube in place Neuro:? motor grossly intact, alert, resting tremor Psych: appropriate affect, appropriate insight? Objective Data Active Medications Acetaminophen (Acetaminophen 325 Mg Tablet) 650 mg PO Q6H PRN PRN Reason: Pain, Mild (Pain Scale 1-3) Last Admin: 06/27/21 18:14 Dose: 650 mg Documented by: MIKI Albuterol Sulfate (Albuterol Sulfate 90 Mcg 8 Gm Inhaler) 2 puff INHALE Q4H PRN PRN Reason: Shortness of Breath/Wheezing Lipase/Protease/Amylase (Lipase/Prot/Amylase 24/76/120k 1 Cap Capsule.) 4 cap PO TID [facility] Last Admin: 06/28/21 08:59 Dose: 4 cap Documented by: RICHA Atorvastatin Calcium (Atorvastatin Calcium 40 Mg Tablet) 40 mg PO DAILY [facility] Last Admin: 06/28/21 09:00 Dose: 40 mg Documented by: RICHA Cholestyramine Resin (Cholestyramine (With Sugar) 4 Gm Powd.Pack) 4 gm PO BID PRN PRN Reason: Loose Stool Dextrose (Dextrose 50 % 25 Gm/50 Ml Vial) 25 gm IVPUSH Q15M PRN; Protocol PRN Reason: per Hypoglycemia Standing Ord. Dibucaine (Dibucaine 1 % Oint 28 Gm Tube) 1 appl TOPICAL Q6H PRN PRN Reason: Hemorrhoids Ferrous Sulfate (Ferrous Sulfate 324 Mg Tablet.) 324 mg PO DAILY [facility] Last Admin: 06/28/21 09:00 Dose: 324 mg Documented by: RICHA Glucose (Glucose Gel 15 Gm Gel..Gram.) 15 gm PO Q15M PRN; Protocol PRN Reason: per Hypoglycemia Standing Ord. Piperacillin Sod/Tazobactam (Sod 2.25 gm/ Sodium Chloride) 50 mls @ 100 mls/hr IV Q6H [facility] Last Infusion: 06/28/21 05:54 Dose: 0 mls/hr Documented by: BLAISE Lactated Ringer's (Lr) 1,000 mls @ 150 mls/hr IVCONT .Q6H40M [facility] Last Admin: 06/28/21 05:57 Dose: 150 mls/hr Documented by: BLAISE Insulin Human Lispro (Insulin Lispro 100 Unit/Ml 3 Ml Vial) 0 unit SUBCUT QIDACHS [facility]; Protocol Last Admin: 06/28/21 08:09 Dose: Not Given Documented by: RICHA Non-Admin Reason: No Insulin Coverage Metoprolol Succinate (Metoprolol Succinate Er 50 Mg Tab.Er.24h) 50 mg PO BID [facility]; Protocol Last Admin: 06/28/21 09:00 Dose: 50 mg Documented by: RICHA Mirtazapine (Mirtazapine 7.5 Mg Tablet) 7.5 mg PO BEDTIME [facility] Last Admin: 06/27/21 20:45 Dose: 7.5 mg Documented by: BLAISE Morphine Sulfate (Morphine Sulfate Er 15 Mg Tablet.Er) 15 mg PO TID [facility] Last Admin: 06/28/21 08:59 Dose: 15 mg Documented by: RICHA Omeprazole (Omeprazole 40 Mg Capsule.Dr) 40 mg PO DAILY@0630 [facility] Last Admin: 06/28/21 05:06 Dose: 40 mg Documented by: BLAISE Ondansetron HCl (Ondansetron Hcl 4 Mg/2 Ml Vial) 4 mg IVPUSH Q8H PRN PRN Reason: Nausea and Vomiting Pharmacy Consult (Consult Rx Vancomycin Dosing) 1 each MISCELLANE DAILY PRN PRN Reason: Consult order Rifaximin (Rifaximin 550 Mg Tablet) 550 mg PO TID [facility] Last Admin: 06/28/21 09:00 Dose: 550 mg Documented by: RICHA Sodium Chloride (0.9 % Sodium Chloride Flush 3 Ml Syringe) [facility] Last Admin: 06/28/21 08:58 Dose: 3 ml Documented by: RICHA Sodium Chloride (0.9 % Sodium Chloride Flush 10 Ml Syringe) [facility] Thiamine HCl (Thiamine Hcl 100 Mg Tablet) 100 mg PO DAILY [facility] Last Admin: 06/28/21 09:00 Dose: 100 mg Documented by: RICHA Vitamin D (Cholecalciferol (Vitamin D3) 25 Mcg Tablet) 25 mcg PO DAILY [facility] Last Admin: 06/28/21 09:00 Dose: 25 mcg Documented by: RICHA Labs CBC & Chem 7: 06/28/21 06:06 06/28/21 06:06 Labs: Laboratory Results - last 24 hr 06/27/21 06/27/21 06/27/21 11:12 16:09 20:35 MCV MCH MCHC RDW Plt Count MPV Absolute Nucleated RBC Nucleated RBC % (auto) Anion Gap Estim Creat Clear Calc Estimated GFR POC Glucose 151 H 134 H 152 H Fasting Glucose Calcium Total Bilirubin Direct Bilirubin AST ALT Alkaline Phosphatase Total Protein Albumin 06/28/21 06/28/21 06/28/21 06:06 06:06 07:26 MCV 89.4 MCH 29.2 MCHC 32.7 RDW 17.3 H Plt Count 69 L MPV Not Reportable Absolute Nucleated RBC 0.020 H Nucleated RBC % (auto) 0.1 Anion Gap 13 Estim Creat Clear Calc 22.1 Estimated GFR 22 POC Glucose 83 Fasting Glucose 101 H Calcium 7.1 L D Total Bilirubin 1.2 H Direct Bilirubin 0.8 H AST 14 ALT 12 Alkaline Phosphatase 115 Total Protein 4.6 L Albumin 2.0 L Microbiology Microbiology Results: Microbiology 06/23/21 18:51 Blood Culture - Final Blood - Venous Clostridium perfringens Enterococcus faecium Klebsiella pneumoniae 06/23/21 17:32 Blood Culture - Final Blood - Venous Clostridium perfringens Klebsiella pneumoniae Enterococcus faecium 06/21/21 18:45 Stool Culture - Preliminary Stool Escherichia coli 06/25/21 06:08 Blood Culture - Preliminary Blood - Venous No growth after 48 hours. 06/25/21 06:08 Blood Culture - Preliminary Blood - Venous No growth after 48 hours. Assessment and Plan (1) Metabolic acidosis: Status: Acute (2) Diarrhea: Status: Acute (3) Melena: Status: Acute (4) Hypokalemia: Status: Acute Assessment and Plan: hospital d#8 66yo F with stage IV pancreatic CA s/p EUS-guided gastrojejunostomy with stenting and s/p 4 cycles FOLFIRINOX chemotherapy, AF on apixaban, DM2, HTN, HLD admitted to [facility] [place]/18-06/19 with metabolic acidosis and multiple electrolyte abnormalities due to diarrhea discharged to [facility] for STR sent back in with recurrent acidosis and had episode of melena became septic with polymicrobial bacteremia, pneumonia, cholangitis lactic acidosis, PATRICE severe sepsis due to polymicrobial bacteremia, ascending cholangitis, pneumonia cultures growing klebsiella, clostridium perferingens, and E. faecium. vanc dced, conitnue zosyn day 6, on discharge change to augmentin and flaygl, 2 week total repeat blood cultures negative s/p percutaneous transhepatic cholangiography at [facility] [place] 06/25/21 with stent and internal/external drain placed, drained lfts markedly improved, wbc decreased d/w Dr. Alcantara, extrenal tube clamped evening of 06/27/21, continue to flush q8h, monitor lfts, cbc, if continues to improve can discharge, outpatient follow up for eventual stent replacement and drain removal. PATRICE ivf, nephro following, monitor melena acute/chronic blood loss anemia held apixaban,s/p 3units total prbc, hgb chelsi of 5.5 today down to 8.8 from 10.8, no obvious bleed, monitor hypokalemia - replaced, monitor hypomagnesemia - repleted chronic diarrhea - likely due to chemotherapy + pancreatic insufficiency + possible SIBO- rifaxmin started as per GI- on d#6 pancreatic insufficiency - enzyme replacement, cholestyramine paroxysmal atrial fibrillation - hold anticoagulation due to GIB - continue metoprolol succinate HTN - metoprolol succinate DM2 - correction-dose lispro HLD - statin chronic cancer pain - continue MSSR - prn IV hydromorphone VTE ppx - SCDs dispo - poor prognosis; dr plascencia discussed with pt's HCP/friend Apollo Camacho who now lives in [place]. also discussed with pt's local friend Michelle Ahn [phone]. pt has no surviving family members Quality Stroke Does the patient have a stroke diagnosis?: No VTE Prior VTE?: No VTE Risk Level:: Medical - moderate - high VTE Device Contraindication: N/A - Device Ordered VTE Drug Contraindication: Treatment Not Indicated
[2021-06-28 11:08] LABS: Glucose, Whole Blood 141 mg/dL (60-115)
[2021-06-28] MEDS: Acetaminophen 325 MG TABLET 650 MG PO (12:54)
[2021-06-28 16:20] LABS: Glucose, Whole Blood 166 mg/dL (60-115)
[2021-06-28] MEDS: Insulin Lispro 100 UNIT/ML 3 ML VIAL SUBCUT (16:43)
[2021-06-28] MEDS: 0.9 % Sodium Chloride Flush 10 ML SYRINGE IVFLUSH ×2 (16:46→20:54)
[2021-06-28 19:45] LABS: Glucose, Whole Blood 124 mg/dL (60-115)
--- NOTE | 2021-06-28 19:47 | PM.PNNEP ---
Subjective Subjective Date of Service: 06/28/21 Interval history: cc: diarrhea reduced sepsis improved. pain at tube site improved Physical Exam Vital Signs: Vital Signs: Last Vital Signs Temp 97.2 F 06/28/21 19:01 Pulse 80 06/28/21 19:01 Resp 20 06/28/21 19:01 BP 100/60 06/28/21 19:01 Pulse Ox 99 06/28/21 19:01 Body Mass Index 28.5 General: AO X 3, no acute distress, juandice resolved Resp:? CTA bilateral, no accessory muscles used CVS: S1,S2,RRR GI: soft, ruq tender, non distended, internal/extrenal biliary tube in place Neuro:? motor grossly intact, alert, resting tremor Psych: appropriate affect, appropriate insight? Objective Data Labs CBC & Chem 7: 06/28/21 06:06 06/28/21 06:06 Labs: Laboratory Results - last 24 hr 06/27/21 06/28/21 06/28/21 20:35 06:06 06:06 WBC 23.6 H RBC 3.01 L Hgb 8.8 L Hct 26.9 L MCV 89.4 MCH 29.2 MCHC 32.7 RDW 17.3 H Plt Count 69 L MPV Not Reportable Absolute Nucleated RBC 0.020 H Nucleated RBC % (auto) 0.1 Sodium 136 Potassium 3.5 Chloride 107 Carbon Dioxide 20 L Anion Gap 13 BUN 32 H Creatinine 2.21 H Estim Creat Clear Calc 22.1 Estimated GFR 22 POC Glucose 152 H Fasting Glucose 101 H Calcium 7.1 L D Total Bilirubin 1.2 H Direct Bilirubin 0.8 H AST 14 ALT 12 Alkaline Phosphatase 115 Total Protein 4.6 L Albumin 2.0 L 06/28/21 06/28/21 06/28/21 07:26 11:03 16:08 WBC RBC Hgb Hct MCV MCH MCHC RDW Plt Count MPV Absolute Nucleated RBC Nucleated RBC % (auto) Sodium Potassium Chloride Carbon Dioxide Anion Gap BUN Creatinine Estim Creat Clear Calc Estimated GFR POC Glucose 83 141 H 166 H Fasting Glucose Calcium Total Bilirubin Direct Bilirubin AST ALT Alkaline Phosphatase Total Protein Albumin 06/28/21 19:36 WBC RBC Hgb Hct MCV MCH MCHC RDW Plt Count MPV Absolute Nucleated RBC Nucleated RBC % (auto) Sodium Potassium Chloride Carbon Dioxide Anion Gap BUN Creatinine Estim Creat Clear Calc Estimated GFR POC Glucose 124 H Fasting Glucose Calcium Total Bilirubin Direct Bilirubin AST ALT Alkaline Phosphatase Total Protein Albumin Microbiology Microbiology Results: Microbiology 06/23/21 18:51 Blood - Venous Blood Culture - Final Clostridium perfringens Enterococcus faecium Klebsiella pneumoniae 06/23/21 17:32 Blood - Venous Blood Culture - Final Clostridium perfringens Klebsiella pneumoniae Enterococcus faecium 06/21/21 18:45 Stool Stool Culture - Preliminary Escherichia coli 06/25/21 06:08 Blood - Venous Blood Culture - Preliminary No growth after 48 hours. 06/25/21 06:08 Blood - Venous Blood Culture - Preliminary No growth after 48 hours. 06/21/21 20:00 Blood - Venous Blood Culture - Final No growth after 5 days. 06/21/21 20:00 Blood - Venous Blood Culture - Final No growth after 5 days. 06/22/21 16:26 Stool Stool Culture - Preliminary Escherichia coli 06/22/21 16:51 Urine clean catch - Clean Catch Midstream Urine Culture - Final Procedures Date of Service Date of Service: 06/28/21 Assessment & Plan Assessment and plan (1) PATRICE (acute kidney injury): Status: Acute Assessment and Plan: -66yo F with PATRICE DDx Prerenal - GI losses ? Early ATN due to sepsis Baseline Cr close to 1.0 Obstruction ruled out -stage IV pancreatic CA s/p EUS-guided gastrojejunostomy with stenting and s/p 4 cycles FOLFIRINOX chemotherapy, - Metabolic Acidosis -Septic with polymicrobial bacteremia Plan : -Continue IVF with LR - Lowered rate to 125ml - PATRICE -slow to recover - apixabanon hold ,s/p 3units total prbc - replace K and monitor -?hypomagnesemia- repleted - HTN - metoprolol succinate - poor prognosis Thx Dr. Onofre (2) Diarrhea: Status: Acute Assessment and Plan: Vital Signs:?? Vital Signs:?Last Vital Signs Temp ? 98.5 F? 06/26/21 07:48 Pulse? 70? 06/26/21 09:13 Resp ? 18? 06/26/21 07:48 BP ? 115/61? 06/26/21 09:13 Pulse Ox ? 100 ? 06/26/21 07:48 Body Mass Index ? 28.5? General: AO X 3, no acute distress, juandice resolved Resp:? CTA bilateral, no accessory muscles used CVS: S1,S2,RRR GI: soft, ruq tender, non distended, internal/extrenal biliary tube in place Neuro:? motor grossly intact, alert Psych: appropriate affect, appropriate insight? Objective Data Active Medications Acetaminophen (Acetaminophen 325 Mg Tablet)? 650 mg PO Q6H PRN PRN Reason: Pain, Mild (Pain Scale 1-3) Last Admin: 06/24/21 01:24? Dose: 650 mg Documented by: ALMA Albuterol Sulfate (Albuterol Sulfate 90 Mcg 8 Gm Inhaler)? 2 puff INHALE Q4H PRN PRN Reason: Shortness of Breath/Wheezing Lipase/Protease/Amylase (Lipase/Prot/Amylase 24/76/120k 1 Cap Capsule.Dr)? 4 cap PO TID JACOBO Documented by: GAGE Non-Admin Reason: Patient Refused Glucose (Glucose Gel 15 Gm Gel..Gram.)? 15 gm PO Q15M PRN; Protocol PRN Reason: per Hypoglycemia Standing Ord. Hydromorphone HCl (Hydromorphone Hcl 1 Mg/Ml Syringe)? 0.8 mg IVPUSH Q4H PRN; Protocol PRN Reason: severe pain Last Admin: 06/25/21 20:46? Dose: 0.8 mg Documented by: GILLIAN Sodium Chloride (Ns)? 1,000 mls @ 100 mls/hr IVCONT .Q10H JACOBO Last Admin: 06/26/21 05:59? Dose: 100 mls/hr Documented by: GILLIAN Piperacillin Sod/Tazobactam (Sod 2.25 gm/ Sodium Chloride)? 50 mls @ 100 mls/hr IV Q6H JACOBO Last Infusion: 06/26/21 06:50? Dose: 0 mls/hr Documented by: GAGE Insulin Human Lispro (Insulin Lispro 100 Unit/Ml 3 Ml Vial)? 0 unit SUBCUT QIDACHS [facility]; Protocol Last Admin: 06/26/21 07:58 Dose:? Not Given Documented by: GAGE Non-Admin Reason: No Insulin Coverage Metoprolol Succinate (Metoprolol Succinate Er 50 Mg Tab.Er.24h)? 50 mg PO BID [facility]; Protocol Last Admin: 06/26/21 09:13? Dose: 50 mg Documented by: GAGE Mirtazapine (Mirtazapine 7.5 Mg Tablet)? 7.5 mg PO BEDTIME [facility] Last Admin: 06/25/21 20:46? Dose: 7.5 mg Documented by: GILLIAN Morphine Sulfate (Morphine Sulfate Er 15 Mg Tablet.Er)? 15 mg PO TID [facility] Last Admin: 06/26/21 09:13? Dose: 15 mg Documented by: GAGE Omeprazole (Omeprazole 40 Mg Capsule.Dr)? 40 mg PO DAILY@0630 [facility] Ondansetron HCl (Ondansetron Hcl 4 Mg/2 Ml Vial)? 4 mg IVPUSH Q8H PRN PRN Reason: Nausea and Vomiting Pharmacy Consult (Consult Rx Vancomycin Dosing)? 1 each MISCELLANE DAILY PRN PRN Reason: Consult order Rifaximin (Rifaximin 550 Mg Tablet)? 550 mg PO TID [facility] Last Admin: 06/26/21 09:12? Dose: 550 mg Documented by: GAGE Sodium Chloride (0.9 % Sodium Chloride Flush 3 Ml Syringe)? 3 ml IVFLUSH QSHIFT [facility] Last Admin: 06/26/21 09:20? Dose: 3 ml Documented by: GAGE Thiamine HCl (Thiamine Hcl 100 Mg Tablet)? 100 mg PO DAILY [facility] Last Admin: 06/26/21 09:12? Dose: 100 mg Documented by: GAGE Vitamin D (Cholecalciferol (Vitamin D3) 25 Mcg Tablet)? 25 mcg PO DAILY [facility] Last Admin: 06/26/21 09:12? Dose: 25 mcg Documented by: GAGE Labs CBC & Chem 7: 06/26/21 07:37? 06/26/21 07:37? Labs: Laboratory Results - last 24 hr ? 06/24/21 06/25/21 06/25/21 ? 09:33 10:57 18:09 MCV ? ? ? MCH ? ? ? MCHC ? ? ? RDW ? ? ? Plt Count ? ? ? MPV ? ? ? Absolute Nucleated RBC ? ? ? Nucleated RBC % (auto) ? ? ? Anion Gap ? ? ? Estim Creat Clear Calc ? ? ? Estimated GFR ? ? ? POC Glucose ? ?122 H ?120 H Random Glucose ? ? ? Fasting Glucose ? ? ? Calcium ? ? ? Total Bilirubin ? ? ? Direct Bilirubin ? ? ? AST ? ? ? ALT ? ? ? Alkaline Phosphatase ? ? ? Total Protein ? ? ? Albumin ? ? ? Vancomycin Trough ? ? ? Random Vancomycin ? ? ? Crossmatch ?See Detail ? ? ? 06/25/21 06/25/21 06/25/21 ? 19:53 22:14 22:14 MCV ? ? ? MCH ? ? ? MCHC ? ? ? RDW ? ? ? Plt Count ? ? ? MPV ? ? ? Absolute Nucleated RBC ? ? ? Nucleated RBC % (auto) ? ? ? Anion Gap ? ? ?13 Estim Creat Clear Calc ? ? ?23.0 Estimated GFR ? ? ?23 POC Glucose ?152 H ? ? Random Glucose ? ? ?156 H Fasting Glucose ? ? ? Calcium ? ? ?6.8 L D Total Bilirubin ? ? ? Direct Bilirubin ? ? ? AST ? ? ? ALT ? ? ? Alkaline Phosphatase ? ? ? Total Protein ? ? ? Albumin ? ? ? Vancomycin Trough ? ?23.4 H ? Random Vancomycin ? ? ? Crossmatch ? 06/26/21 06/26/21 06/26/21 ? 07:37 07:37 07:37 MCV ? ?88.7 ? MCH ? ?29.1 ? MCHC ? ?32.8 ? RDW ? ?17.2 H ? Plt Count ? ?58 L D ? MPV ? ?Not Reportable ? Absolute Nucleated RBC ? ?0.200 H ? Nucleated RBC % (auto) ? ?0.9 H ? Anion Gap ? ? ?16 Estim Creat Clear Calc ? ? ?21.5 Estimated GFR ? ? ?22 POC Glucose ? ? ? Random Glucose ? ? ? Fasting Glucose ? ? ?149 H Calcium ? ? ?7.3 L D Total Bilirubin ? ? ?1.7 H Direct Bilirubin ? ? ?1.0 H AST ? ? ?44 H D ALT ? ? ?23 Alkaline Phosphatase ? ? ?146 H D Total Protein ? ? ?5.4 L Albumin ? ? ?2.4 L Vancomycin Trough ? ? ? Random Vancomycin ?21.1 H ? ? Crossmatch ? 06/26/21 ? 07:52 MCV ? MCH ? MCHC ? RDW ? Plt Count ? MPV ? Absolute Nucleated RBC ? Nucleated RBC % (auto) ? Anion Gap ? Estim Creat Clear Calc ? Estimated GFR ? POC Glucose ?143 H Random Glucose ? Fasting Glucose ? Calcium ? Total Bilirubin ? Direct Bilirubin ? AST ? ALT ? Alkaline Phosphatase ? Total Protein ? Albumin ? Vancomycin Trough ? Random Vancomycin ? Crossmatch ? Microbiology Microbiology Results: Microbiology ?06/23/21 18:51 Blood Culture - Preliminary ?Blood - Venous ?? Prelim: GPR Gram Stain only ? ?? Enterococcus faecium ? ?? Klebsiella pneumoniae ? ?? Gram negative lizette ?06/23/21 17:32 Blood Culture - Preliminary ?Blood - Venous ?? Prelim: GPR Gram Stain only ? ?? Gram negative lizette ? ?? Enterococcus faecium ? ?? Gram negative lizette#2 ?06/22/21 16:26 Stool Culture - Preliminary ?Stool ?? Escherichia coli ?06/25/21 06:08 Blood Culture - Preliminary ?Blood - Venous ?? No growth after 24 hours. ?06/25/21 06:08 Blood Culture - Preliminary ?Blood - Venous ?? No growth after 24 hours. ?06/21/21 18:45 Stool Culture - Preliminary ?Stool ?? Escherichia coli Assessment and Plan (1) Metabolic acidosis: ?Status:?Acute (2) Diarrhea: ?Status:?Acute (3) Melena: ?Status:?Acute (4) Hypokalemia: ?Status:?Acute ?Assessment and Plan: hospital d#6 66yo F with stage IV pancreatic CA s/p EUS-guided gastrojejunostomy with stenting and s/p 4 cycles FOLFIRINOX chemotherapy, AF on apixaban, DM2, HTN, HLD admitted to [facility] [place] 06/18-06/19 with metabolic acidosis and multiple electrolyte abnormalities due to diarrhea discharged to [facility] for STR sent back in with recurrent acidosis and had episode of melena became septic with polymicrobial bacteremia, pneumonia, cholangitis lactic acidosis, PATRICE severe sepsis due to? polymicrobial bacteremia, ascending cholangitis, pneumonia - vanc + pip/diana d#4, follow BCx, ID following -a/p percutaneous transhepatic cholangiography at [facility] [place] 06/25/21 with stent and internal/external drain placed, draining well overnight, lfts markedly improved, pain at site, but overal ruq pain improved. monitor output, plan to close tube tomorrow and recontact IR at [facility] [place] - dr. Alcantara [phone] PATRICE ivf, nephro following, monitor melena acute/chronic blood loss anemia held apixaban,s/p 3units total prbc,? now hgb up from chelsi of 5.5, today 11.6 ?hypokalemia - replaced and monitor ?hypomagnesemia - repleted ?chronic diarrhea - likely due to chemotherapy + pancreatic insufficiency + possible SIBO- rifaxmin started as per GI- on d#4/14 pancreatic insufficiency - enzyme replacement, cholestyramine paroxysmal atrial fibrillation - hold anticoagulation due to GIB - continue metoprolol succinate HTN - metoprolol succinate DM2 - correction-dose lispro ?HLD - statin ?chronic cancer pain - continue MSSR - prn IV hydromorphone ?VTE ppx - SCDs ?dispo - poor prognosis; dr plascencia discussed with pt's HCP/friend Apollo Camacho who now lives in [place].? also discussed with pt's local friend Michelle Maki.562 Time Spent With Patient Time: Total time spent is greater than 50% in coordination of care (as documented) at patient's floor/unit and/or counseling patient: Progress Note: Quality Stroke Does the patient have a stroke diagnosis?: No
[2021-06-28] MEDS: Mirtazapine 7.5 MG TABLET PO (20:53)
--- NOTE | 2021-06-28 21:42 | CONS_ITS ---
DATE OF SERVICE: 06/26/2021 REASON FOR CONSULTATION: Consult requested by the medical team to evaluate and help in management of patient with acute kidney injury. HISTORY OF PRESENT ILLNESS: The patient is a 66-year-old unfortunate female with past medical history of longstanding diabetes, hypertension, AFib, pancreatic cancer, who was admitted to [facility] between 06/18 to 06/19 with metabolic acidosis and multiple electrolyte imbalances in the setting of diarrhea. She was discharged to [facility] and sent back due to recurrent acidosis in episode of melena. She also had sepsis with polymicrobial bacteria, pneumonia, and cholangitis. She also had lactic acidosis in PATRICE. Renal consult has been requested as the patient's creatinine level has increased to 2.27. The creatinine in the past was ranging around 1.0. In the ER, the patient had large watery brown stools. Her hemoglobin had dropped to 7.1, and she had a pH of 7.09. She was given IV bicarb with improvement of the pH. Her creatinine was 2.0 on admission. COVID testing was negative. She was initiated on IV bicarb drip. Renal consult has been requested to help with management of her acute kidney injury and acidosis. REVIEW OF SYSTEMS: As noted above. Other system review negative. PAST MEDICAL HISTORY: History of atrial fibrillation, type 2 diabetes mellitus, hypertension, pancreatic CA with metastasis to liver, pancytopenia, protein-calorie malnutrition. PAST SURGICAL HISTORY: As noted in the history and physical. PERSONAL AND SOCIAL HISTORY: The patient does not smoke or drink alcohol. ALLERGIES: THE PATIENT HAS NO KNOWN DRUG ALLERGIES. HOME MEDICATIONS: Include albuterol, apixaban, aspirin, atorvastatin, cholestyramine, cyclosporine eye drops, ferrous sulfate, hydromorphone, lidocaine, losartan, magnesium, metoprolol, mirtazapine, morphine, omeprazole, ondansetron, potassium chloride, thiamine. PHYSICAL EXAMINATION: GENERAL: The patient is resting in the bed. Awake, able to follow commands. VITAL SIGNS: Blood pressure was 115/61, pulse is 70, afebrile. HEENT: Shows pupils equal bilaterally and reactive to light. No jugular venous distention is noted. NECK: Supple. She is jaundiced. CARDIOVASCULAR SYSTEM: S1, S2 without rub. RESPIRATORY SYSTEM: Air entry decreased in bases. ABDOMEN: Soft with internal/external biliary with tube in place. NEURO: Exam was essentially nonfocal. LABORATORY DATA: Done today; sodium 140, potassium 3.5, chloride 109, CO2 19, BUN 39, creatinine 2.27. Hemoglobin 11.6, hematocrit 35.4, WBC 22.8, platelets 58. IMPRESSION: 1. A 66-year-old female with acute kidney injury. Acute kidney injury in the patient is likely secondary to renal hypoperfusion in the setting of severe prerenal state. She has significant drainage from the biliary drain. It is unclear if she had acute tubular injury due to multifactorial reasons including severe sepsis. Obstruction has been ruled out on this patient based on the imaging studies available to me. The patient did have a CT scan of the abdomen and pelvis without contrast on the , which showed normal size kidney. 2. Baseline chronic kidney disease, which is mild with a creatinine around 1 to 1.1. 3. Severe non-anion gap metabolic acidosis, which is resolving due to bicarbonate loss. 4. Anemia in the setting of anticoagulant use with hemoglobin improved with transfusion. 5. Hypokalemia. 6. Hypomagnesemia due to GI losses. 7. Stage 4 pancreatic CA with gastrojejunostomy with stenting and now with a drain. 8. Polymicrobial sepsis. RECOMMENDATION: At this juncture, I would recommend checking spot urine for electrolytes, protein, creatinine. I recommend aggressive IV fluid and would increase the rate of IV fluids to 150 mL/hr. Need to monitor hemoglobin level and transfuse as needed. I also recommend aggressive replacement of potassium and magnesium. Antibiotic dosing as per medical team and we should avoid using any nephrotoxic agents. Thank you for allowing me to participate in medical management of the patient. MD EZRA Harrell/KEVIN / [phone]
[2021-06-28 22:10] LABS: Strep Pneumo Ag urine Not Detected (Not Detected)
[2021-06-29 02:07] LABS: Legionella Ag Urine Not Detected (Not Detected)
[2021-06-29 03:04] VITALS: BP 106/62; PULSE 80; RESP 20; TEMP 36.1; O2SAT 98
[2021-06-29] MEDS: Lactated Ringers 1,000 ML 125 ML IVCONT (05:26)
[2021-06-29] MEDS: Piperacillin Sodium/Tazobactam 2.25 GM in 0.9 % Sodium Chloride 50 ML IV (05:26)
[2021-06-29] MEDS: Omeprazole 40 MG CAPSULE.DR PO (05:27)
[2021-06-29 07:02] LABS: Hematocrit 31.1 % (37.0-47.0); Mean Corpuscular HGB Conc 32.2 g/dl (31.0-35.0); Mean Corpuscular Volume 90.1 fL (80.0-98.0); NRBC Pct Auto 0.1 /100WBC (0.0-0.2); Red Blood Count 3.45 X10*6/uL (4.20-5.50); Red Cell Distribution Width 17.4 % (11.0-16.0); White Blood Count 19.6 X10*3/uL (4.8-10.8)
[2021-06-29 07:03] LABS: Platelet Count 77 X10*3/uL (160-400)
[2021-06-29 07:54] LABS: Alanine Aminotransferase 11 U/L (0-31); Albumin Level 2.3 g/dL (3.5-5.0); Alkaline Phosphatase 127 U/L (39-117); Anion Gap 18 (12-20); Aspartate Amino Transferase 14 U/L (5-31); Bilirubin Direct 0.7 mg/dL (0.0-0.5); Blood Urea Nitrogen 28 mg/dL (9-16); Calcium 7.2 mg/dL (8.4-10.2); Carbon Dioxide 17 mmol/L (22-29); Chloride 106 mmol/L (96-108); Creatinine Clr Calc Pharmacy 22.8; Estimated Glomerular Filt Rate 23; Glucose Fasting 86 mg/dL (60-99); Potassium 2.9 mmol/L (3.3-5.1); Sodium 138 mmol/L (135-145); Total Protein 5.2 g/dL (6.5-8.0)
[2021-06-29 08:00] VITALS: BP 157/78; PULSE 69; RESP 18; TEMP 36.6; O2SAT 100
[2021-06-29 08:27] LABS: Glucose, Whole Blood 96 mg/dL (60-115)
[2021-06-29] MEDS: Potassium Chloride/H20 10 MEQ/100 ML PIGGYBACK 100 MEQ IV ×3 (09:12→11:55)
[2021-06-29] MEDS: 0.9 % Sodium Chloride Flush 10 ML SYRINGE IVFLUSH (09:12)
[2021-06-29] MEDS: 0.9 % Sodium Chloride Flush 3 ML SYRINGE IVFLUSH (09:12)
[2021-06-29] MEDS: Lipase/Prot/Amylase 24/76/120K 1 CAP CAPSULE.DR 4 CAP PO (09:13)
[2021-06-29] MEDS: Metoprolol Succinate ER 50 MG TAB.ER.24H PO (09:14)
[2021-06-29] MEDS: Cholecalciferol (Vitamin D3) 25 MCG TABLET PO (09:14)
[2021-06-29] MEDS: Ferrous Sulfate 324 MG TABLET.DR PO (09:14)
[2021-06-29] MEDS: Atorvastatin Calcium 40 MG TABLET PO (09:15)
[2021-06-29] MEDS: Thiamine HCL 100 MG TABLET PO (09:15)
[2021-06-29] MEDS: Morphine Sulfate ER 15 MG TABLET.ER PO (09:15)
[2021-06-29] MEDS: rifAXIMin 550 MG TABLET PO (09:16)
--- NOTE | 2021-06-29 09:59 | MHC.CM.PN ---
pt to be dcd today back to [facility] where she was on a bed hold..spoke with herb on first floor at [facility] where pt will be returning
--- NOTE | 2021-06-29 10:00 | P.DS_ITS ---
DS: Providers Provider Date of Service: 06/29/21 Date of admission: 06/24/21 13:30 Primary care physician: Chris Murphy MD Consults: 06/22/21 07:21 Consult to Gastroenterology Routine Consulting Provider: Mini Guevara Reason for consultation: GI bleed Has provider been notified: No 06/24/21 04:55 Consult to Nephrology Routine Consulting Provider: Gonzales Gordillo Reason for consultation: Acidosis; Hypokalemia; 06/24/21 07:21 Consult to Infectious Diseases Routine Consulting Provider: Marisa Jay Reason for consultation: polymicrobial bacteremia 06/24/21 13:24 Consult to General Surgery Routine Consulting Provider: [facility] Reason for consultation: gas-filled right hepatic lobe lesion question abscess or necrotic DS: Diagnosis Discharge Diagnosis (1) PATRICE (acute kidney injury): Status: Acute (2) Diarrhea: Status: Acute DS: Summary Hospital Course Hospital Course: Patient was admitted for metabolic acidosis and hypokalemia, hypomagnesemia due to diarrhea. Course was then complicated by severe sepsis due to acute cholangitis and pneumonia complicated by polymicrobial bacteremia and acute kidney injury. Patient was treated with broad-spectrum antibiotics with vancomycin and Zosyn. Her blood cultures grew Klebsiella pneumonia, Clostridium perfringens, Enterococcus faecium. her vancomycin was then discontinued. Blood cultures then became negative. Infectious Disease recommended 2 weeks of oral Augmentin and metronidazole. Patient then underwent percutaneous transhepatic cholangiography at [facility] on 06/25/2021 with stent and internal/external drain placement. At that point pain and LFTs markedly improved as well as white blood cell count. External drain was then closed and WBC continued to decline and patient remained afebrile. Plan is to continue Augmentin Flagyl as recommended and follow-up with Radiology to eventually removed drain and replaced with duodenal stent. for her electrolyte abnormalities she received supplement and will continue supplementation as outpatient. For her acute kidney injury her ARB was held she was given IV fluids. Creatinine has stabilized between to in 2.3. for her chronic diarrhea Gastroenterology recommended 14 day total of rifaximin for any possible small intestine bacterial overgrowth. She is 7 days remaining on this. Patient is feeling much better will be discharged to SNF. Time Spent with Patient Time attestation: Total time spent providing and/or coordinating discharge services: Discharge coordination time: Greater than 30 minutes Quality: Stroke Does the patient have a stroke diagnosis?: No Physical Exam Vital Signs: Vital Signs: Last Vital Signs Temp 98 F 06/29/21 08:00 Pulse 69 06/29/21 08:00 Resp 18 06/29/21 08:00 BP 157/78 H 06/29/21 08:00 Pulse Ox 100 06/29/21 08:00 Body Mass Index 28.5 General: AO X 3, no acute distress, juandice resolved Resp:? CTA bilateral, no accessory muscles used CVS: S1,S2,RRR GI: soft, ruq tender, non distended, internal/extrenal biliary tube in place Neuro:? motor grossly intact, alert, Psych: appropriate affect, appropriate insight? DS: Data Data Completed and Pending Labs on day of discharge: Laboratory Results - last 24 hr 06/25/21 06/28/21 06/28/21 08:49 11:03 16:08 WBC RBC Hgb Hct MCV MCH MCHC RDW Plt Count MPV Absolute Nucleated RBC Nucleated RBC % (auto) Sodium Potassium Chloride Carbon Dioxide Anion Gap BUN Creatinine Estim Creat Clear Calc Estimated GFR POC Glucose 141 H 166 H Fasting Glucose Calcium Total Bilirubin Direct Bilirubin AST ALT Alkaline Phosphatase Total Protein Albumin Ur L.pneumophila Ag Not Detected Ur Strep pneumoniae Ag Not Detected 06/28/21 06/29/21 06/29/21 19:36 06:26 06:26 WBC 19.6 H RBC 3.45 L Hgb 10.0 L Hct 31.1 L MCV 90.1 MCH 29.0 MCHC 32.2 RDW 17.4 H Plt Count 77 L MPV Not Reportable Absolute Nucleated RBC 0.020 H Nucleated RBC % (auto) 0.1 Sodium 138 Potassium 2.9 L Chloride 106 Carbon Dioxide 17 L Anion Gap 18 BUN 28 H Creatinine 2.15 H Estim Creat Clear Calc 22.8 Estimated GFR 23 POC Glucose 124 H Fasting Glucose 86 Calcium 7.2 L Total Bilirubin 1.0 Direct Bilirubin 0.7 H AST 14 ALT 11 Alkaline Phosphatase 127 H Total Protein 5.2 L Albumin 2.3 L Ur L.pneumophila Ag Ur Strep pneumoniae Ag 06/29/21 08:14 WBC RBC Hgb Hct MCV MCH MCHC RDW Plt Count MPV Absolute Nucleated RBC Nucleated RBC % (auto) Sodium Potassium Chloride Carbon Dioxide Anion Gap BUN Creatinine Estim Creat Clear Calc Estimated GFR POC Glucose 96 Fasting Glucose Calcium Total Bilirubin Direct Bilirubin AST ALT Alkaline Phosphatase Total Protein Albumin Ur L.pneumophila Ag Ur Strep pneumoniae Ag Preliminary micro results at discharge 06/21/21 18:45 Stool Culture - Preliminary Stool Escherichia coli 06/25/21 06:08 Blood Culture - Preliminary Blood - Venous No growth after 48 hours. 06/25/21 06:08 Blood Culture - Preliminary Blood - Venous No growth after 48 hours. 06/22/21 16:26 Stool Culture - Preliminary Stool Escherichia coli Discharge Plan Discharge Patient Disposition: [facility] Discharge Diagnosis: cholangitis Referrals: Perla Alcantara MD [Physician] - 1 Week Chris Murphy MD [Primary Care Provider] - 1 Week Discharge Medications: New Xifaxan 550 mg Tablet 550 mg PO TID Qty: 21 RF: 0 amoxicillin-pot clavulanate [Augmentin] 875-125 mg tablet 1 tab PO BID Qty: 28 RF: 0 metronidazole 500 mg tablet 500 mg PO Q12H Qty: 28 RF: 0 Continued potassium chloride 10 mEq capsule, extended release 1 tab PO BID RF: 0 metoprolol succinate 50 mg tablet extended release 24 hr 1 tab PO BID RF: 0 ondansetron HCl 8 mg tablet 1 tab PO TID RF: 0 thiamine HCl (vitamin B1) [Vitamin B-1] 100 mg tablet 1 tab PO DAILY RF: 0 diphenoxylate-atropine 2.5-0.025 mg tablet 1 tab PO Q6H PRN (Reason: Loose Stool) RF: 0 lidocaine-prilocaine 2.5-2.5 % cream 1 appl topical NEEDED PRN (Reason: Pain) RF: 0 ferrous sulfate [FeroSul] 325 mg (65 mg iron) tablet 325 mg PO DAILY RF: 0 omeprazole 20 mg capsule,delayed release(DR/EC) 1 cap PO DAILY RF: 0 morphine 15 mg tablet extended release 1 tab PO TID RF: 0 mirtazapine 15 mg tablet 0.5 tab PO DAILY RF: 0 albuterol sulfate 90 mcg/actuation HFA aerosol inhaler 1 - 2 puff inhalation Q4-6H RF: 0 hydromorphone 4 mg tablet 4 mg PO NEEDED PRN (Reason: Pain) RF: 0 cholecalciferol (vitamin D3) [Vitamin D3] 25 mcg (1,000 unit) capsule 1 cap PO QAM RF: 0 Restasis 0.05 % dropperette 1 drp ophthalmic (eye) BEDTIME RF: 0 cholestyramine-aspartame [Cholestyramine Light] 4 gram powder in packet 1 packet PO BID PRN (Reason: Loose Stool) RF: 0 magnesium L-lactate 84 mg tablet extended release 1 tab PO BID RF: 0 Eliquis 5 mg tablet 1 tab PO BID RF: 0 atorvastatin 40 mg Tablet 40 mg PO DAILY RF: 0 Creon 36,000-114,000- 180,000 unit Capsule,Delayed Release(Dr/Ec) 3 cap PO TID RF: 0 Discontinued aspirin 81 mg tablet,delayed release (DR/EC) 1 tab PO DAILY RF: 0 losartan 100 mg tablet 1 tab PO DAILY RF: 0 Discharge Orders: Discharge Order (Routine); Ordered 06/29/21 Ordered By: Ivan Garrett Diet: advance to usual diet Activity on Discharge: As tolerated Stand Alone Forms: Patient Portal Discharge page Care Plan Goals: recovery Health Concerns: cholangitis Plan of Treatment: 2 weeks of augmentin and flaygl, keep external drain closed, flush with 10cc NS three times per day, follow up with Dr. Alcantara from [facility] radiology, follow up with oncology Assessment: see above
--- NOTE | 2021-06-29 10:30 | MHC.CM.PN ---
pt aware of dc pt reports that she will contact family memebers to notify of dc
[2021-06-29 11:24] VITALS: BP 148/72; PULSE 73; RESP 18; TEMP 36.7; O2SAT 100
[2021-06-29 11:33] LABS: COVID-19 Test Negative (Negative)
[2021-06-29 11:52] LABS: Glucose, Whole Blood 127 mg/dL (60-115)
[2021-06-29] MEDS: Heparin Sodium,Porcine Flush 50 UNITS/5 ML SYRINGE IVFLUSH (13:05)
== END 2021-06-29 12:55 | disposition skilled nursing facility (03) | DRG 872 ==
LOC: HO.ED 21:00 → HO.EDOVER 23:24 → HO.IMC 06-22 12:40
PROVIDERS: Emergency Medicine Emergency Medical Services; Family Medicine; Hospitalist; Physician Assistant; Admitting Provider Internal Medicine; Emergency Provider Emergency Medicine; PCP Internal Medicine; Visit Provider Internal Medicine
DX: A41.81 Sepsis due to Enterococcus (principal); E87.2 Acidosis; K92.1 Melena; D62 Acute posthemorrhagic anemia; N17.9 Acute kidney failure, unspecified; C25.9 Malignant neoplasm of pancreas, unspecified; C78.7 Secondary malignant neoplasm of liver and intrahepatic bile duct; E44.1 Mild protein-calorie malnutrition; K83.09 Other cholangitis; R65.20 Severe sepsis without septic shock; E78.5 Hyperlipidemia, unspecified; I10 Essential (primary) hypertension; K52.9 Noninfective gastroenteritis and colitis, unspecified; I48.0 Paroxysmal atrial fibrillation; E11.9 Type 2 diabetes mellitus without complications; E83.42 Hypomagnesemia; G89.3 Neoplasm related pain (acute) (chronic); B96.7 Clostridium perfringens [C. perfringens] as the cause of diseases classified elsewhere; B96.1 Klebsiella pneumoniae [K. pneumoniae] as the cause of diseases classified elsewhere; K86.89 Other specified diseases of pancreas; Z68.28 Body mass index [BMI] 28.0-28.9, adult; Z20.822 Contact with and (suspected) exposure to COVID-19; E87.6 Hypokalemia; Z79.01 Long term (current) use of anticoagulants; Z79.891 Long term (current) use of opiate analgesic; Z79.899 Other long term (current) drug therapy
CPT/HCPCS: 36415; 36600; 71045; 74176; 80048; 80076; 80202; 81001; 82272; 82803; 82947; 83605; 83690; 83735; 84100; 84145; 84484; 85007; 85014; 85018; 85025; 85027; 85610; 85730; 86850; 86880; 86900; 86901; 86923; 87040; 87045; 87046; 87076; 87077; 87086; 87185; 87186; 87205; 87449; 87493; 87635; 87640; 87641; 87899; 89055; 93005; 99285; J1170; J1642; J2543; J3370; J3411; J3430; J3475; P9016; P9017

== ENCOUNTER 2021-07-01 07:17 | Outpatient (REF) | payer OTHER, SELFPAY ==
[2021-07-01 07:21] LABS: MANUAL DIFF FLAG NO
[2021-07-01 08:06] LABS: Basophils Percent Auto 0.2 % (0-2); Eosinophils Absolute Auto 0.1 X10*3/uL (0.0-0.4); Eosinophils Percent Auto 0.9 % (0-4); Hematocrit 26.1 % (37.0-47.0); Hemoglobin 8.4 g/dl (12.0-16.0); Imm Gran Abs Auto 0.13 X10*3/uL (0.00-0.03); Imm Gran Pct Auto 1.1 % (0.0-0.4); Lymphocytes Absolute Auto 1.5 X10*3/uL (1.2-4.9); Lymphocytes Percent Auto 12.3 % (20-40); Mean Corpuscular HGB Conc 32.2 g/dl (31.0-35.0); Mean Corpuscular Hemoglobin 29.5 pg (27.0-33.0); Mean Corpuscular Volume 91.6 fL (80.0-98.0); Monocytes Absolute Auto 0.9 X10*3/uL (0.1-1.2); Monocytes Percent Auto 7.5 % (2-11); Neutrophils Absolute Auto 9.4 x10*3/uL (2.0-8.3); Platelet Count 79 X10*3/uL (160-400); Red Blood Count 2.85 X10*6/uL (4.20-5.50); Red Cell Distribution Width 16.8 % (11.0-16.0); White Blood Count 12.1 X10*3/uL (4.8-10.8)
[2021-07-01 08:42] LABS: Alanine Aminotransferase 9 U/L (0-31); Albumin Level 2.1 g/dL (3.5-5.0); Alkaline Phosphatase 128 U/L (39-117); Anion Gap 11 (12-20); Aspartate Amino Transferase 12 U/L (5-31); Bilirubin Total 0.7 mg/dL (0.0-1.0); Blood Urea Nitrogen 22 mg/dL (9-16); Carbon Dioxide 21 mmol/L (22-29); Chloride 110 mmol/L (96-108); Estimated Glomerular Filt Rate 23; Glucose Random 85 mg/dL (60-115); Potassium 3.3 mmol/L (3.3-5.1); Sodium 139 mmol/L (135-145); Total Protein 4.6 g/dL (6.5-8.0)
[2021-07-01 09:20] LABS: Calcium 7.2 mg/dL (8.4-10.2)
== END 2021-07-01 07:18 | disposition home or self-care (01) ==
LOC: HO.MMNH1L 07:17
PROVIDERS: Visit Provider Family Medicine
DX: C25.9 Malignant neoplasm of pancreas, unspecified (principal)
CPT/HCPCS: 36415; 80053; 85025

== ENCOUNTER 2021-07-07 00:21 | Outpatient (REF) | payer OTHER, SELFPAY ==
[2021-07-07 07:50] LABS: Hematocrit 27.4 % (37.0-47.0); Hemoglobin 8.6 g/dl (12.0-16.0); Mean Corpuscular HGB Conc 31.4 g/dl (31.0-35.0); Mean Corpuscular Volume 92.3 fL (80.0-98.0); Mean Platelet Volume 11.3 fL (9.4-12.3); Platelet Count 145 X10*3/uL (160-400); Red Blood Count 2.97 X10*6/uL (4.20-5.50); Red Cell Distribution Width 17.1 % (11.0-16.0); White Blood Count 12.1 X10*3/uL (4.8-10.8)
[2021-07-07 08:49] LABS: Anion Gap 16 (12-20); Blood Urea Nitrogen 21 mg/dL (9-16); Calcium 7.1 mg/dL (8.4-10.2); Carbon Dioxide 20 mmol/L (22-29); Chloride 107 mmol/L (96-108); Estimated Glomerular Filt Rate 24; Glucose Random 57 mg/dL (60-115); Potassium 4.5 mmol/L (3.3-5.1); Sodium 138 mmol/L (135-145)
== END 2021-07-07 00:22 | disposition home or self-care (01) ==
LOC: HO.MMNH1L 00:21
PROVIDERS: Visit Provider Family Medicine
DX: C25.9 Malignant neoplasm of pancreas, unspecified (principal)
CPT/HCPCS: 36415; 80048; 85027

== ENCOUNTER 2021-07-14 00:23 | Outpatient (REF) | payer OTHER, SELFPAY ==
[2021-07-14 07:03] LABS: Hematocrit 23.9 % (37.0-47.0); Hemoglobin 7.2 g/dl (12.0-16.0); Mean Corpuscular HGB Conc 30.1 g/dl (31.0-35.0); Mean Corpuscular Hemoglobin 28.2 pg (27.0-33.0); Mean Corpuscular Volume 93.7 fL (80.0-98.0); Mean Platelet Volume 10.3 fL (9.4-12.3); Platelet Count 214 X10*3/uL (160-400); Red Blood Count 2.55 X10*6/uL (4.20-5.50); Red Cell Distribution Width 17.2 % (11.0-16.0); White Blood Count 8.1 X10*3/uL (4.8-10.8)
[2021-07-14 07:44] LABS: Anion Gap 11 (12-20); Blood Urea Nitrogen 14 mg/dL (9-16); Calcium 7.2 mg/dL (8.4-10.2); Carbon Dioxide 21 mmol/L (22-29); Chloride 110 mmol/L (96-108); Estimated Glomerular Filt Rate 35; Glucose Random 67 mg/dL (60-115); Potassium 4.2 mmol/L (3.3-5.1); Sodium 138 mmol/L (135-145)
== END 2021-07-14 00:24 | disposition home or self-care (01) ==
LOC: HO.MMNH1L 00:23
PROVIDERS: Visit Provider Family Medicine
DX: C25.9 Malignant neoplasm of pancreas, unspecified (principal)
CPT/HCPCS: 36415; 80048; 85027

== ENCOUNTER 2021-07-21 01:34 | Outpatient (REF) | payer OTHER, SELFPAY | END 2021-07-21 01:35 | disposition home or self-care (01) | LOC: HO.MMNH1L 01:34 | PROVIDERS: Visit Provider Family Medicine | DX: Z13.89 Encounter for screening for other disorder (principal) ==